=== PATIENT | female | born 1980 | race Caucasian/White ===

== ENCOUNTER 2019-05-27 17:21 | Emergency (ER) | payer OTHER, SELFPAY ==
[2019-05-27 17:29] VITALS: BP 118/73; PULSE 72; RESP 16; TEMP 36.9; O2SAT 98
--- NOTE | 2019-05-27 17:51 | ED.GENADULT ---
HPI - General Adult General Chief complaint: Urogenital-Female Stated complaint: UTI Time Seen by Provider: 05/27/19 17:51 Source: patient and RN notes reviewed Mode of arrival: ambulatory Limitations: no limitations History of Present Illness HPI narrative: 38-year-old female presents with urinary complaints for the past 2-3 days. Dysuria consist of burning and frequency.? No treatment.? Denies fever or chills. No significant pelvic pain. White vaginal discharge.? Vaginal itching and redness. Concern for STDs. Deirdre says she has unprotected sex with her significant other that she has been involved with since June 2018, she's not sure if he's have sex with others. Exacerbating factors urinating.? Denies hematuria or vaginal bleeding. Denies being , LMP 2009, hysterectomy.? No flank pain. Denies nausea, vomiting, and abdominal pain.? Tolerating liquids well.? Remains active. Some parts of this dictation were generated by voice recognition software and may contain typographical and/or grammatical inaccuracies. Related Data Home Medications Medication Instructions Recorded Confirmed acyclovir 200 mg PO Q4H 05/27/19 05/27/19 methadone 05/27/19 Allergies Allergy/AdvReac Type Severity Reaction Status Date / Time Sulfa (Sulfonamide Allergy Unknown RASH, Verified 01/09/19 18:22 Antibiotics) VOMITING Review of Systems Review of Systems: Narrative: CONSTITUTIONAL: Denies fever, chills, sweats. EYES: Denies visual changes, redness, discharge. ENT: Denies rhinorrhea, congestion, sore throat, otalgia. CARDIOVASCULAR: Denies chest pain, palpitations, edema. RESPIRATORY: Denies dyspnea, wheezing, cough. GASTROINTESTINAL: Denies abdominal pain, nausea, vomiting, diarrhea. GENITOURINARY: Complains of dysuria (burning and frequency), white vaginal discharge and itching. Denies hematuria. SKIN: Denies rash or itching. MUSCULOSKELETAL: Denies acute back pain, joint pain, or myalgia. NEUROLOGIC: Denies numbness or focal weakness. PSYCHIATRIC: Denies anxiety or depression. All systems reviewed & are unremarkable except as noted in HPI and below. [facility] Past Medical History Medical History (Updated 05/28/19 @ 00:00 by Background Daemon) Anxiety Depression Herpes simplex Neuropathy Substance abuse On methadone Surgical History Surgical History (Updated 05/27/19 @ 18:32 by SOMMER Rahman) History of hysterectomy Family History Family History (Updated 05/27/19 @ 18:32 by SOMMER Rahman) Other No significant family history Social History Social History (Updated 05/27/19 @ 18:34 by SOMMER Rahman) Smoking packs per day: 1 Smoking cigarettes per day: 20.0 Years smoked: 20 Smoking pack-years: 20.00 Smoking status: Current every day smoker Second hand tobacco smoke exposure: Yes Alcohol intake: never Substance use: former Substance use type: painkillers Other substance usage details: Deirdre denies using recreational drugs at this time Living arrangements: with family Occupation/Education: occupation Gender identity (if verbalized by the patient): Female Comments At time of signature, agree with nurse past medical, surgical, social, and family history.? There is no relevant family history pertinent to the presenting complaint. Exam Narrative: Exam Narrative: GENERAL: This is a well-nourished, well-developed patient, in no apparent distress.? Talks in full sentences and ambulates with steady gait without dyspnea. HEAD: normocephalic, atraumatic. EYES: PERRL. Sclera clear/white. Vision is grossly intact. CARDIOVASCULAR: Regular rate and rhythm without murmurs, gallops, or rubs. RESPIRATORY: Clear to auscultation. Breath sounds equal bilaterally. No wheezes, rales, or rhonchi.? GASTROINTESTINAL: Abdomen soft, no significant abdominal tenderness, nondistended. Bowel sounds are active. No hepato-splenomegaly, or palpable masses. No guarding. ZULMA
[2019-05-27] MEDS: cefTRIAXone 250 MG VIAL IM (18:12)
[2019-05-27] MEDS: LIDOCAINE HCL 1% LOCAL INJ 20 ML VIAL INFILTRATE (18:12)
== END 2019-05-27 18:23 | disposition home or self-care (01) ==
PROVIDERS: Emergency Provider Nurse Practitioner Family; PCP Family Medicine
DX: N76.0 Acute vaginitis (principal); F17.210 Nicotine dependence, cigarettes, uncomplicated; G62.9 Polyneuropathy, unspecified
CPT/HCPCS: 81003; 87086; 87088; 87491; 87591; 87661; 96372; 99214; G0463; J0696

== ENCOUNTER 2019-10-13 18:58 | Emergency (ER) | payer OTHER, SELFPAY ==
--- NOTE | ~2019-10-13 | XR_ITS ---
EXAMINATION: XR finger 5th LT min 2V DATE: 10/13/2019 19:21 INDICATION: Left hand fifth digit injury and pain. TECHNIQUE: 3 views of left hand fifth digit were obtained. COMPARISON: Left wrist radiographs 09/06/2015. FINDINGS: There is a nondisplaced comminuted fracture of base of fifth proximal phalanx. Joint spaces are normal. IMPRESSION: 1. Nondisplaced comminuted fracture of base of fifth proximal phalanx. Reviewed, dictated and finalized at location A.
[2019-10-13 19:14] VITALS: BP 101/64; PULSE 76; RESP 16; TEMP 36.5; O2SAT 97
--- NOTE | 2019-10-13 19:25 | ED.UPPEXIN ---
HPI - Extremity Injury (Upper) General Chief Complaint: Extremity Injury, Upper Stated Complaint: Hand injury Time Seen by Provider: 10/13/19 19:25 Source: patient and RN notes reviewed Mode of arrival: ambulatory Limitations: no limitations History of Present Illness HPI narrative: This is a 39 years old female presented to the office for an evaluation of left hand injury since last night. She was playing basketball and fell onto her left hand. She complains of left pinky pain, with bruising and swelling today. Denies any other injury/trauma. Related Data Allergies Allergy/AdvReac Type Severity Reaction Status Date / Time Sulfa (Sulfonamide Allergy Unknown RASH, Verified 01/09/19 18:22 Antibiotics) VOMITING Review of Systems Review of Systems: Narrative: CONSTITUTIONAL: Denies fever, chills, sweats. CARDIOVASCULAR: Denies chest pain RESPIRATORY: Denies dyspnea GASTROINTESTINAL: Denies abdominal pain, nausea, vomiting SKIN: Denies skin abrasion MUSCULOSKELETAL: Reports left hand and little finger pain. She is right hand dominated. NEUROLOGIC: Denies lightheaded/dizziness All other systems reviewed are negative, except as documented in HPI. [facility] Past Medical History Medical History Anxiety Depression Herpes simplex Neuropathy Substance abuse On methadone Surgical History Surgical History History of hysterectomy Hx of tonsillectomy Family History Family History Other No significant family history Social History Social History Smoking packs per day: 1 Smoking cigarettes per day: 20.0 Years smoked: 20 Smoking pack-years: 20.00 Smoking status: Current every day smoker Second hand tobacco smoke exposure: Yes Alcohol intake: never Substance use: former Substance use type: painkillers Other substance usage details: Deirdre denies using recreational drugs at this time Gender identity (if verbalized by the patient): Female Comments At time of signature, I agree with nursing past medical, surgical, social and family history. There is no relevant family history pertinent to the presenting complaint. Exam Narrative: Exam Narrative: GENERAL: This is a well-nourished, well-developed patient, patient appears under the influence, alcohol breath noted CARDIOVASCULAR: Regular rate and rhythm without murmurs, gallops, or rubs. RESPIRATORY: Clear to auscultation. Breath sounds equal bilaterally. No wheezes, rales, or rhonchi. GASTROINTESTINAL: Abdomen soft, non-tender, nondistended. Bowel sounds are active. No hepato-splenomegaly, or palpable masses. No guarding. SKIN: warm, intact with no suspicious lesions or rash, good texture and turgor. NEURO: awake, alert, and oriented to person, place and time. There were no obvious focal neurologic abnormalities. EXTREMITIES: There is no deformity of the left fifth finger. The patient is unable to extend or flex it well because of the pain. There is swelling and ecchymosis noted from mid metarcarpal to distal of fifth phalange. Cap refills brisk. Course Vital Signs Vital signs: Vital Signs Temperature 97.7 F 10/13/19 19:14 Pulse Rate 76 10/13/19 19:14 Respiratory Rate 16 10/13/19 19:14 Blood Pressure 101/64 10/13/19 19:14 Pulse Oximetry 97 10/13/19 19:14 Temperature 97.7 F 10/13/19 19:14 Pulse Rate 76 10/13/19 19:14 Respiratory Rate 16 10/13/19 19:14 Blood Pressure 101/64 10/13/19 19:14 Pulse Oximetry 97 10/13/19 19:14 MDM - Extremity Injury (Upper) MDM Narrative Medical decision making narrative: Discharge instructions reviewed with patient, as well as provided in writing per nursing staff. The instructions also include specific and strict return/GO TO THE ER as well as f/u information.
--- NOTE | 2019-10-13 19:53 | PC.NURSE ---
Left with sister. Patient not driving
== END 2019-10-13 19:53 | disposition home or self-care (01) ==
PROVIDERS: Emergency Provider Nurse Practitioner; PCP Family Medicine
DX: S62.647A Nondisplaced fracture of proximal phalanx of left little finger, initial encounter for closed fracture (principal); W19.XXXA Unspecified fall, initial encounter; Y93.67 Activity, basketball; F17.210 Nicotine dependence, cigarettes, uncomplicated
CPT/HCPCS: 29130; 73140; 99213; G0463

== ENCOUNTER 2019-10-21 09:19 | Emergency (ER) | payer OTHER, SELFPAY ==
--- NOTE | 2019-10-21 09:25 | ED.URI ---
HPI - URI/Sore Throat General Chief Complaint: Upper Respiratory Infection Stated Complaint: ear infection, sinus Time Seen by Provider: 10/21/19 09:26 Source: patient and RN notes reviewed Mode of arrival: ambulatory Limitations: no limitations History of Present Illness HPI Narrative: 39-year-old female presents with concern for bilateral ear pain, nasal congestion. Reports 2-day history of illness. Reports using antibiotic eardrops with no relief. MD elicited complaint: other (Ear pain) Related Data Home Medications Medication Instructions Recorded Confirmed acyclovir 10/21/19 methadone 10/21/19 Allergies Allergy/AdvReac Type Severity Reaction Status Date / Time Sulfa (Sulfonamide Allergy Unknown RASH, Verified 01/09/19 18:22 Antibiotics) VOMITING Review of Systems Review of Systems: Narrative: CONSTITUTIONAL: Denies malaise, chills, sweats, or fever. EYES: Denies visual changes, redness, or discharge. ENT: Reports rhinorrhea, congestion, bilateral otalgia. Denies sinus pain and sore throat. CARDIOVASCULAR: Denies chest pain, palpitations, or edema. RESPIRATORY: Denies cough or dyspnea. GASTROINTESTINAL: Denies abdominal pain, nausea, vomiting, diarrhea SKIN: Denies rash or itching. MUSCULOSKELETAL: Denies myalgia. NEUROLOGIC: Denies headache. All systems reviewed & are unremarkable except as noted in HPI and below PMFSH Social History Social History Smoking packs per day: 1 Smoking cigarettes per day: 20.0 Years smoked: 20 Smoking pack-years: 20.00 Smoking status: Current every day smoker Second hand tobacco smoke exposure: Yes Alcohol intake: never Substance use: former Substance use type: painkillers Other substance usage details: Deirdre denies using recreational drugs at this time Gender identity (if verbalized by the patient): Female Comments At time of signature, agree with nursing past medical, surgical, social and family history. There is no relevant family history pertinent to the presenting complaint Exam Narrative: Exam Narrative: GENERAL: Well-appearing, well-nourished, and in no acute distress. HEAD: Normocephalic EYES: PERRLA, conjunctivae clear ENT: Nares clear, turbinates edematous and erythematous, clear discharge. Mucous membranes moist. TM erythematous and bulging bilaterally; no tragal tenderness. Oropharynx erythematous without lesions. Tonsils not enlarged and without exudate, no drooling, no hoarseness, no trismus, uvula midline. NECK: Supple. No lymphadenopathy CHEST: Clear to auscultation, breath sounds equal. No wheezing, rhonchi, rales, or stridor. No respiratory distress, speaks in full sentences. HEART: Regular rate and rhythm. No murmur heard. SKIN: Warm, dry, no rash. NEURO: Alert and oriented x3. PSYCH: Normal mood and affect Course Course Emergency Course: Patient is aware of diagnosis, understands and agrees to treatment plan. Anticipatory guidance given. Patient agrees to follow-up as directed and is aware of reasons to seek care at the emergency department. Portions of this record may have been created with voice recognition software Vital Signs Vital signs: Vital Signs Temperature 97.8 F 10/21/19 09:30 Pulse Rate 76 10/21/19 09:30 Respiratory Rate 18 10/21/19 09:30 Blood Pressure 136/78 10/21/19 09:30 Pulse Oximetry 100 10/21/19 09:30 Temperature 97.8 F 10/21/19 09:30 Pulse Rate 76 10/21/19 09:30 Respiratory Rate 18 10/21/19 09:30 Blood Pressure 136/78 10/21/19 09:30 Pulse Oximetry 100 10/21/19 09:30 Reviewed. Patient has been instructed to follow up with her primary care provider within the next week regarding her elevated blood pressure today. MDM - URI/Sore Throat MDM Narrative Medical decision making narrative: Differential diagnosis considered: Strep pharyngitis, allergic rhinitis, upper respiratory tract infection, sinusitis, rhinosinus
[2019-10-21 09:30] VITALS: BP 136/78; PULSE 76; RESP 18; TEMP 36.6; O2SAT 100
== END 2019-10-21 09:44 | disposition home or self-care (01) ==
PROVIDERS: Emergency Provider Nurse Practitioner; PCP Family Medicine
DX: H66.003 Acute suppurative otitis media without spontaneous rupture of ear drum, bilateral (principal); F17.210 Nicotine dependence, cigarettes, uncomplicated
CPT/HCPCS: 99213; G0463

== ENCOUNTER 2019-12-07 19:14 | Emergency (ER) | payer OTHER, SELFPAY ==
[2019-12-07 19:23] VITALS: BP 135/88; PULSE 85; RESP 16; TEMP 37.4; O2SAT 100
--- NOTE | 2019-12-07 19:25 | PC.NURSE ---
in br to obtain ua spec.
--- NOTE | 2019-12-07 20:14 | ED.ABDPAIN ---
HPI - Abdominal Pain General Chief Complaint: Abdominal Pain Stated Complaint: abd pain Time Seen by Provider: 12/07/19 20:14 Source: patient and RN notes reviewed Mode of arrival: ambulatory Limitations: no limitations History of Present Illness HPI narrative: 39-year-old female who presents to [facility] care with complaints of lower abdominal pain starting this morning. Patient verbalizes some urinary frequency and slight burning with urination, denies any noted hematuria. Patient denies any vaginal drainage or new sexual partners, denies any known fevers, nausea vomiting or diarrhea. She states that she has some problems with constipation. MD elicited complaint: abdominal pain Pertinent past history: constipation and past UTI Onset (ago): day(s) Pain Consistency: intermittent Location: suprapubic Severity: moderate Pain scale (0-10): 7 Quality: aching Radiation: none Migration to: no migration Exacerbating factors: nothing Context: confirms history of similar episodes Associated symptoms: constipation Related Data Hx Last Menstrual Period: hysterectomy Patient : No Home Medications Medication Instructions Recorded Confirmed acyclovir 10/21/19 methadone 10/21/19 docusate sodium [DOK] PO 12/07/19 fluoxetine mg 12/07/19 lorazepam 12/07/19 terbinafine HCl TOPICAL 12/07/19 Allergies Allergy/AdvReac Type Severity Reaction Status Date / Time doxycycline Allergy Unknown Nausea Verified 10/23/19 13:03 Sulfa (Sulfonamide Allergy Unknown RASH, Verified 10/23/19 13:03 Antibiotics) VOMITING Review of Systems Review of Systems: Narrative: CONSTITUTIONAL: Denies fever, chills, or sweats. EYES: Denies visual changes, redness, or discharge. ENT: Denies rhinorrhea, congestion, sore throat, or otalgia. CARDIOVASCULAR: Denies chest pain, palpitations, or edema. RESPIRATORY: Denies cough or dyspnea. GASTROINTESTINAL: Lower abdominal discomfort, no nausea, vomiting, or diarrhea.constipation GENITOURINARY: positive dysuria denies hematuria. SKIN: Denies rash or itching. MUSCULOSKELETAL: Denies back pain, joint pain, or myalgia. NEUROLOGIC: Denies headache, numbness, or weakness. PSYCHIATRIC: Denies anxiety or depression. All systems reviewed & are unremarkable except as noted in HPI and below PMFSH Past Medical History Medical History (Updated 12/10/19 @ 08:45 by Deepali Zamudio NP) Anxiety Depression Herpes simplex Neuropathy Substance abuse On methadone Toenail fungus Surgical History Surgical History History of hysterectomy Hx of tonsillectomy Family History Family History Other No significant family history Social History Social History Smoking packs per day: 1 Smoking cigarettes per day: 20.0 Years smoked: 20 Smoking pack-years: 20.00 Smoking status: Current every day smoker Second hand tobacco smoke exposure: Yes Alcohol intake: never Substance use: former Substance use type: painkillers Other substance usage details: Deirdre denies using recreational drugs at this time Gender identity (if verbalized by the patient): Female Comments At time of signature, agree with nursing past medical, surgical, social and family history. There is no relevant family history pertinent to the presenting complaint Exam Narrative: Exam Narrative: GENERAL: Well-appearing, well-nourished, and in no acute distress. HEAD: Normocephalic, atraumatic. EYES: PERRLA and EOMI. ENT: Nares clear, no rhinorrhea or epistaxis. Mucous membranes moist. NECK: Supple. CHEST: Clear to auscultation. No respiratory distress.SAO2 100% on room air HEART: Regular rate and rhythm. No murmur heard. Normal peripheral pulses. ABDOMEN: Soft, nontender to palpation, nondistended, normal active bowel sounds. EXTREMITIES: Normal range of motion. N
== END 2019-12-07 20:34 | disposition left against medical advice (07) ==
PROVIDERS: Emergency Provider Registered Nurse; PCP Family Medicine
DX: R30.0 Dysuria (principal); F17.210 Nicotine dependence, cigarettes, uncomplicated; F41.9 Anxiety disorder, unspecified; F32.9 Major depressive disorder, single episode, unspecified
CPT/HCPCS: 81003; 99212; G0463

== ENCOUNTER 2020-01-08 11:14 | Outpatient (NON) | payer OTHER, SELFPAY ==
[2020-01-08 22:02] LABS: SARS-CoV-2 RNA PCR Negative
== END 2020-01-08 11:15 ==
PROVIDERS: Visit Provider Family Medicine
DX: Z20.828 Contact with and (suspected) exposure to other viral communicable diseases (principal); B34.9 Viral infection, unspecified
CPT/HCPCS: 87635; C9803; U0003

== ENCOUNTER 2020-01-12 19:15 | Emergency (ER) | payer OTHER, SELFPAY ==
--- NOTE | 2020-01-12 19:17 | ED.GENADULT ---
HPI - General Adult General Chief complaint: Nausea/Vomiting/Diarrhea Stated complaint: Throwing Up Time Seen by Provider: 01/12/20 19:17 Source: patient Mode of arrival: ambulatory Limitations: no limitations History of Present Illness HPI narrative: 39-year-old female patient presents to the [facility] with complaints of vomiting that started today. Patient states she has also had some body aches, sore throat and a stuffy runny nose for the past 2 days. Patient states that she did get tested for Covid about 2 days ago was negative. Patient states that she had had upper respiratory symptoms for about a day when she had gotten tested at that time. Patient states she has taken ibuprofen for her symptoms. Patient states she has been able to hold down some Sprite. Patient states that she just has some muscle pain to the abdomen but denies any diarrhea, severe abdominal pain. Denies any pain with urination. Related Data Home Medications Medication Instructions Recorded Confirmed methadone 10 mg PO DAILY 01/12/20 01/12/20 sertraline 50 mg PO DAILY 01/12/20 01/12/20 sumatriptan succinate 100 mg PO DIRECTED 01/12/20 01/12/20 Allergies Allergy/AdvReac Type Severity Reaction Status Date / Time doxycycline Allergy Rash Verified 01/12/20 19:37 Sulfa (Sulfonamide Allergy Rash Verified 01/12/20 19:28 Antibiotics) Review of Systems Review of Systems: Narrative: CONSTITUTIONAL: Denies fever, positive body aches and chills, denies sweats. EYES: Denies visual changes, redness, or discharge. ENT: Positive rhinorrhea, congestion, sore throat, denies otalgia. CARDIOVASCULAR: Denies chest pain, palpitations, or edema. RESPIRATORY: Denies cough or dyspnea. GASTROINTESTINAL: Denies abdominal pain, positive nausea, vomiting, denies diarrhea. GENITOURINARY: Denies dysuria or hematuria. SKIN: Denies rash or itching. MUSCULOSKELETAL: Denies back pain, joint pain, or myalgia. NEUROLOGIC: Denies headache, numbness, or weakness. PSYCHIATRIC: Denies anxiety or depression. [facility] Past Medical History Medical History (Updated 01/12/20 @ 19:56 by SOMMER Main) Frequent UTI Methadone dependence Opioid use Vicodin Surgical History Surgical History (Updated 01/12/20 @ 19:30 by SOMMER Main) H/O: hysterectomy Comments At the time of my signature I agree with nursing past medical history, surgical, social, and family history. There is no relevant family history pertinent to the presenting complaint. Exam Narrative: Exam Narrative: GENERAL: ill-appearing, well-nourished, and in no acute distress. Patient is slightly slurring her words during exam appears to be under the influence of something. HEAD: Normocephalic, atraumatic. EYES: PERRLA and EOMI. ENT: Nares with erythema and edema noted bilaterally, rhinorrhea, no active epistaxis. Mucous membranes moist. Posterior pharynx does appear dry, some erythema and 1+ tonsil enlargement. Bilateral TMs are clear no erythema or foreign bodies in the canal. NECK: Supple. No lymphadenopathy CHEST: Clear to auscultation. No respiratory distress. HEART: Regular rate and rhythm. No murmur heard. Normal peripheral pulses. ABDOMEN: Soft, flat, nondistended. No guarding, rebound tenderness, or rigid. No pulsatilla masses. Bowel sounds present in all four quadrants. No organomegaly. Negative Negro?s sign. No periumbicial tenderness. No Supra public tenderness or distension. Good femoral pulses bilaterally. No hernia noted. No scars or surface trauma. EXTREMITIES: Normal range of motion. No edema. SKIN: Warm, dry, no rash. NEURO: No focal deficits. Alert and oriented x3. Course Reevaluation(s) Reevaluation #1: Reevaluated patient. Notified her that her strep test today is negative. Discussed with patient that the fact that she is not having any abdominal pain is reassuring. Discussed with her I think that most likely the drainage to the back of the throat is possibly causing
[2020-01-12 19:29] VITALS: BP 107/77; PULSE 83; RESP 18; TEMP 36.7; O2SAT 99
== END 2020-01-12 19:59 | disposition home or self-care (01) ==
PROVIDERS: Emergency Provider Nurse Practitioner Family; PCP Family Medicine
DX: R11.10 Vomiting, unspecified (principal); Z20.828 Contact with and (suspected) exposure to other viral communicable diseases; J06.9 Acute upper respiratory infection, unspecified
CPT/HCPCS: 87081; 87880; 99203; G0463

== ENCOUNTER 2020-01-13 18:40 | Emergency (ER) | payer OTHER, SELFPAY ==
[2020-01-13 18:50] VITALS: BP 121/71; PULSE 85; RESP 17; TEMP 36.6; O2SAT 99
[2020-01-13 19:50] LABS: Basophils Percent Auto 0.5 % (0.2-1.2); Eosinophils Absolute Auto 0.3 K/mm3 (0-0.3); Eosinophils Percent Auto 3.7 % (0-4.4); Hematocrit 40.7 % (37.0-47.0); Hemoglobin 13.4 g/dL (12.0-15.0); Immature Granulocyte Absolute 0.03 K/mm3 (0.00-0.031); Immature Granulocyte Percent A 0.3 % (0-0.5); Lymphocytes Absolute Auto 4.37 K/mm3 (0.9-3.2); Lymphocytes Percent Auto 50.8 % (18.3-44.2); Mean Corpuscular HGB Conc 32.9 g/dl (32-36); Mean Corpuscular Hemoglobin 31.5 pg (26-34); Mean Corpuscular Volume 95.5 fl (80-100); Mean Platelet Volume 9.6 fl (7.4-10.4); Monocytes Absolute Auto 0.8 K/mm3 (0.1-0.6); Monocytes Percent Auto 9.3 % (2.6-8.5); Neutrophils Absolute Auto 3.1 K/mm3 (1.3-6.7); Neutrophils Percent Auto 35.4 % (45.5-73.1); Platelet Count Result 254 k/mm3 (150-375); Red Blood Count 4.26 M/mm3 (4.2-5.4); Red Cell Distribution Width 12.9 % (11.5-14.5); White Blood Count 8.6 K/mm3 (4.5-10.0)
[2020-01-13 20:02] LABS: Alanine Aminotransferase 32 U/L (4-35); Alkaline Phosphatase 116 U/L (38-126); Anion Gap 4 mmol/L (8-16); Aspartate Amino Transferase 35 U/L (14-36); Bilirubin,Total 0.2 mg/dL (0.2-1.3); Blood Urea Nitrogen 11 mg/dL (7-17); Calcium 8.8 mg/dL (8.4-10.2); Carbon Dioxide 31 mmol/L (22-30); Chloride 108 mmol/L (98-107); Estimated CRCL calculation 88 ml/min; Estimated Glomerular Filt Rate > 60; Glucose 82 mg/dL (65-105); Lipase 53 U/L (23-300); Potassium 4.1 mmol/L (3.4-5.0); Sodium 143 mmol/L (137-145)
[2020-01-13 20:03] LABS: Atypical Lymphocytes Present; Platelet Estimate Adequate (Adequate)
--- NOTE | 2020-01-13 20:11 | ED.NAVMDI ---
HPI - Nausea/Vomiting/Diarrhea General Chief complaint: Nausea/Vomiting/Diarrhea Stated complaint: n/v Time Seen by Provider: 01/13/20 19:30 History of Present Illness HPI Narrative: Patient is a 39-year-old female who presents ER with not feeling well over the last week. She reports she has body aches with subjective fevers and chills. She has had persistent nausea and vomiting that is without diarrhea. No known sick contacts, no alleviating factors. Reports she went to urgent care yesterday to be evaluated and was told to come here but instead she went home to go to sleep. Related Data Home Medications Medication Instructions Recorded Confirmed methadone 64 mg PO DAILY 01/12/20 01/12/20 sertraline 50 mg PO DAILY 01/12/20 01/12/20 Allergies Allergy/AdvReac Type Severity Reaction Status Date / Time doxycycline Allergy Rash Verified 01/13/20 18:55 Sulfa (Sulfonamide Allergy Rash Verified 01/13/20 18:55 Antibiotics) Review of Systems Review of Systems: All systems reviewed & are unremarkable except as noted in HPI and below Constitutional: Constitutional: Reports chills, Reports fever(s) and Reports weakness ENT: Denies nasal congestion and Denies sore throat Cardiovascular: Cardiovascular: Denies chest pain and Denies radiating jaw, neck or arm pain Respiratory: Respiratory: Denies cough and Denies dyspnea Gastrointestinal: Gastrointestinal: Reports abdominal pain, Denies diarrhea, Reports nausea and Reports vomiting Genitourinary: Genitourinary: Denies nocturia and Denies dysuria Musculoskeletal: Musculoskeletal: Reports back pain and Reports myalgias PMFSH Past Medical History Medical History (Updated 01/13/20 @ 21:39 by Nahun Dye MD) Frequent UTI Methadone dependence Opioid use Vicodin Surgical History Surgical History (Updated 01/12/20 @ 19:30 by SOMMER Main) H/O: hysterectomy Social History Social History Gender identity (if verbalized by the patient): Female Exam Narrative: Exam Narrative: GENERAL: Well-appearing, well-nourished, and in no acute distress. HEAD: Normocephalic, atraumatic. ENT: Mucous membranes moist. No pharyngeal erythema or tonsillar exam. CHEST: Clear to auscultation. No respiratory distress. HEART: Regular rate and rhythm. Normal peripheral pulses. ABDOMEN: Soft, nontender, nondistended. EXTREMITIES: Normal range of motion. No edema. SKIN: Warm, dry, no rash. NEURO: Alert and oriented x3. Course Course Emergency Course: Symptoms improved with Toradol and Zofran. Patient reports she is ready to be discharged home. Vital Signs Vital signs: Vital Signs Temperature 97.8 F 01/13/20 18:50 Pulse Rate 85 01/13/20 18:50 Respiratory Rate 17 01/13/20 18:50 Blood Pressure 121/71 01/13/20 18:50 Pulse Oximetry 99 01/13/20 18:50 Temperature 97.8 F 01/13/20 18:50 Pulse Rate 68 01/13/20 20:44 Respiratory Rate 17 01/13/20 18:50 Blood Pressure 124/72 01/13/20 20:44 Pulse Oximetry 99 01/13/20 18:50 MDM - Nausea/Vomiting/Diarrhea Lab Data Result diagrams: 01/13/20 19:45 01/13/20 19:45 Labs: Lab Results 01/13/20 01/13/20 01/13/20 Range/Units 19:45 19:45 20:07 WBC 8.6 (4.5-10.0) K/mm3 RBC 4.26 (4.2-5.4) M/mm3 Hgb 13.4 (12.0-15.0) g/dL Hct 40.7 (37.0-47.0) % MCV 95.5 (80-100) fl MCH 31.5 (26-34) pg MCHC 32.9 (32-36) g/dl RDW 12.9 (11.5-14.5) % Plt Count 254 (150-375) k/mm3 MPV 9.6 (7.4-10.4) fl Immature Gran % (Auto) 0.3 (0-0.5) % Neut % (Auto) 35.4 L (45.5-73.1) % Lymph % (Auto) 50.8 H (18.3-44.2) % Talbot % (Auto) 9.3 H (2.6-8.5) % Eos % (Auto) 3.7 (0-4.4) % Baso % (Auto) 0.5 (0.2-1.2) % Lymph # (Auto) 4.37 H (0.9-3.2) K/mm3 Talbot # (Auto) 0.8 H (0.1-0.6) K/mm3 Eos # (Auto) 0.3 (0-0.3) K/mm3 Baso # (Auto) 0.0 (0.
[2020-01-13] MEDS: SODIUM CHLORIDE 0.9% IV 1,000 ML 999 ML IV CONT (20:17)
[2020-01-13] MEDS: KETOROLAC 30 MG/ML VIAL (*BKC) IV PUSH (20:18)
[2020-01-13] MEDS: ONDANSETRON INJ 4 MG/2 ML VIAL IV PUSH (20:18)
[2020-01-13 20:29] LABS: Add Urine Microscopic? YES; Appearance Urine Cloudy (Clear); Bacteria Urine Trace /hpf; Bilirubin Urine Negative (Negative); Blood Urine Negative (Negative); Calcium Oxalate Crystals Urine Present /hpf; Color Urine Yellow (Yellow); Glucose Urine UA Negative (Negative); Ketones Urine Negative (Negative); Leukocyte Esterase Ur Negative LEU/UL (Negative); Mucus Urine Rare /lpf; Nitrate Urine Negative (Negative); Protein Urine Negative (Negative); RBC Urine 0-2 /hpf (0-2); Specific Grav Ur 1.017 (1.001-1.035); Squamous Epithelial Cell Urine Many /hpf (Few); Urobilinogen Urine Negative mg/dL (<2.0); WBC Urine 0-3 /hpf
[2020-01-13 20:42] VITALS: BP 126/83; PULSE 71
[2020-01-13 20:44] VITALS: BP 124/72; PULSE 68
== END 2020-01-13 21:48 | disposition home or self-care (01) ==
PROVIDERS: Emergency Provider Emergency Medicine; PCP Family Medicine
DX: M54.9 Dorsalgia, unspecified (principal); R11.0 Nausea; Z87.440 Personal history of urinary (tract) infections
CPT/HCPCS: 36415; 80053; 81001; 81025; 83690; 85025; 87804; 96361; 96374; 96375; 99284; J1885; J2405; J7030

== ENCOUNTER 2020-02-20 17:09 | Emergency (ER) | payer OTHER, SELFPAY ==
[2020-02-20 17:17] VITALS: BP 136/101; PULSE 98; RESP 18; TEMP 35.8; O2SAT 100
--- NOTE | 2020-02-20 17:26 | ED.EAR ---
HPI - Ear Problem General Chief complaint: Ear Stated complaint: left ear injury/pain Time Seen by Provider: 02/20/20 17:19 Source: patient Mode of arrival: ambulatory Limitations: no limitations History of Present Illness HPI Narrative: This patent is a 39 year old female who presents for evaluation of left ear ringing for 2 weeks. She has continued to feel like she is hearing noise in her left ear so she bought some over the counter ear drops. She used those ear drops today and then suctions out the liquid. Prior to arrival she was using a Q tip to clean out ear and she noticed blood on her tip. She denies ear pain, vomiting or fever. She does reports an episode of vertigo and sinus congestion. Related Data Allergies Allergy/AdvReac Type Severity Reaction Status Date / Time doxycycline Allergy Rash Unverified 02/20/20 17:24 Sulfa (Sulfonamide Allergy Rash Unverified 02/20/20 17:24 Antibiotics) Review of Systems Review of Systems: All systems reviewed & are unremarkable except as noted in HPI and below Constitutional: Constitutional: Denies chills and Denies fever(s) ENT: Reports vertigo, Reports dizziness, Reports nasal congestion and Denies sore throat Cardiovascular: Cardiovascular: Denies chest pain Neurologic: Reports headache(s) (intermittent) PMFSH Past Medical History Medical History Frequent UTI Methadone dependence Opioid use Vicodin Surgical History Surgical History H/O: hysterectomy Social History Social History (Updated 02/20/20 @ 17:31 by Tanya Lin MD) Smoking status: Current every day smoker Exam Const: General: no acute distress and alert Orientation/consciousness: patient oriented x3 HENMT: Head: atraumatic Ears: external ears normal and TM abnormal with fluid behind the TM bilateral and other (no erythema); not perforated Face and sinus: sinuses nontender Mouth: Yes lip normal Other: small amount of blood on left auditory canal but no active bleeding. No tragal tenderness Eyes: Pupils: Equal, round and reactive pupils present EOM: EOMs intact bilaterally Neck: Neck: normal visual inspection Resp: Effort & Inspection: normal respiratory effort and no retractions Cardio: Heart sounds: Murmur heart sound present Skin: General skin exam: normal color Rashes: no rashes Neuro: General: patient oriented x3 and moves all extremities Extrem: General: normal to inspection Course Reevaluation(s) Reevaluation #1: I discussed case with patient . She does not have any sign of External otitis or otitis media. She will take yaron D and nasal spray and follow up with PCP Date: 02/20/20 Time: 17:33 Vital Signs Vital signs: Vital Signs Temperature 96.5 F L 02/20/20 17:17 Pulse Rate 98 02/20/20 17:17 Respiratory Rate 18 02/20/20 17:17 Blood Pressure 136/101 H 02/20/20 17:17 Pulse Oximetry 100 02/20/20 17:17 Temperature 96.5 F L 02/20/20 17:17 Pulse Rate 98 02/20/20 17:17 Respiratory Rate 18 02/20/20 17:17 Blood Pressure 136/101 H 02/20/20 17:17 Pulse Oximetry 100 02/20/20 17:17 Medical Decision Making Vital Signs Vital Signs: Vital Signs Temperature 96.5 F L 02/20/20 17:17 Pulse Rate 98 02/20/20 17:17 Respiratory Rate 18 02/20/20 17:17 Blood Pressure 136/101 H 02/20/20 17:17 Pulse Oximetry 100 02/20/20 17:17 Temperature 96.5 F L 02/20/20 17:17 Pulse Rate 98 02/20/20 17:17 Respiratory Rate 18 02/20/20 17:17 Blood Pressure 136/101 H 02/20/20 17:17 Pulse Oximetry 100 02/20/20 17:17 Discharge Plan Discharge Clinical Impression: Left-sided tinnitus, Acute middle ear effusion Patient Disposition: Home, Self-Care Condition: Stable Instructions: Antibiotic Form, Tinnitus (ED) Prescriptions: New meclizine 25 mg tablet 25 mg PO TID PRN (Reason:
== END 2020-02-20 17:58 | disposition home or self-care (01) ==
LOC: ANHED 17:43
PROVIDERS: Emergency Provider General Practice; PCP Family Medicine
DX: H93.12 Tinnitus, left ear (principal); H93.8X2 Other specified disorders of left ear; Z87.440 Personal history of urinary (tract) infections; F17.200 Nicotine dependence, unspecified, uncomplicated
CPT/HCPCS: 99283

== ENCOUNTER 2020-03-07 11:20 | Emergency (ER) | payer OTHER, SELFPAY ==
[2020-03-07 11:41] VITALS: BP 111/78; PULSE 81; RESP 17; TEMP 36.3; O2SAT 97
[2020-03-07 11:56] LABS: Basophils Absolute Auto 0.1 K/mm3 (0.0-0.1); Basophils Percent Auto 0.5 % (0.2-1.2); Eosinophils Absolute Auto 0.4 K/mm3 (0-0.3); Eosinophils Percent Auto 2.8 % (0-4.4); Hematocrit 41.1 % (37.0-47.0); Hemoglobin 14.2 g/dL (12.0-15.0); Immature Granulocyte Absolute 0.04 K/mm3 (0.00-0.031); Immature Granulocyte Percent A 0.3 % (0-0.5); Lymphocytes Absolute Auto 7.15 K/mm3 (0.9-3.2); Lymphocytes Percent Auto 49.2 % (18.3-44.2); Mean Corpuscular HGB Conc 34.5 g/dl (32-36); Mean Corpuscular Hemoglobin 31.7 pg (26-34); Mean Corpuscular Volume 91.7 fl (80-100); Mean Platelet Volume 9.5 fl (7.4-10.4); Monocytes Absolute Auto 1.3 K/mm3 (0.1-0.6); Monocytes Percent Auto 8.7 % (2.6-8.5); Neutrophils Absolute Auto 5.6 K/mm3 (1.3-6.7); Neutrophils Percent Auto 38.5 % (45.5-73.1); Nucleated Red Blood Cells Perc 0.1 % (0.0-0.2); Platelet Count Result 361 k/mm3 (150-375); Red Blood Count 4.48 M/mm3 (4.2-5.4); Red Cell Distribution Width 12.6 % (11.5-14.5); White Blood Count 14.5 K/mm3 (4.5-10.0)
[2020-03-07 12:08] LABS: Alanine Aminotransferase 19 U/L (4-35); Albumin Level 4.3 g/dL (3.5-5.1); Alkaline Phosphatase 130 U/L (38-126); Anion Gap 6 mmol/L (8-16); Aspartate Amino Transferase 25 U/L (14-36); Bilirubin,Total 0.6 mg/dL (0.2-1.3); Blood Urea Nitrogen 13 mg/dL (7-17); Calcium 9.6 mg/dL (8.4-10.2); Carbon Dioxide 30 mmol/L (22-30); Chloride 104 mmol/L (98-107); Estimated CRCL calculation 76 ml/min; Estimated Glomerular Filt Rate > 60; Glucose 78 mg/dL (65-105); Potassium 4.2 mmol/L (3.4-5.0); Sodium 140 mmol/L (137-145)
[2020-03-07 12:18] LABS: Ethanol < 10 mg/dL (<10)
[2020-03-07 14:19] LABS: Add Urine Microscopic? YES; Appearance Urine Clear (Clear); Bacteria Urine Trace /hpf; Bilirubin Urine Negative (Negative); Blood Urine Negative (Negative); Color Urine Yellow (Yellow); Glucose Urine UA Negative (Negative); Ketones Urine Negative (Negative); Leukocyte Esterase Ur Trace LEU/UL (Negative); Mucus Urine Rare /lpf; Nitrate Urine Negative (Negative); Protein Urine Negative (Negative); RBC Urine 0-2 /hpf (0-2); Specific Grav Ur 1.014 (1.001-1.035); Squamous Epithelial Cell Urine Rare /hpf (Few); Urobilinogen Urine Negative mg/dL (<2.0); WBC Urine 0-3 /hpf
[2020-03-07 14:31] LABS: Barbiturate Screen Urine Negative (Negative); Benzodiazepines Screen Urine Positive (Negative)
[2020-03-07 14:42] LABS: Cannabinoid Screen Urine Negative (Negative); Cocaine Screen Urine Negative (Negative); Methadone Screen Urine Positive (Negative); Opiate Screen Urine Negative (Negative); Phencyclidine Screen Urine Negative (Negative)
[2020-03-07 15:13] LABS: Amphetamine Screen Urine Positive (Negative)
--- NOTE | 2020-03-07 16:06 | ED.GENADULT ---
HPI - General Adult General Chief complaint: Psychiatric Symptoms Stated complaint: PSYCH EVAL Time Seen by Provider: 03/07/20 12:13 Source: patient History of Present Illness HPI narrative: 39 years old white female brought to the emergency room by ambulance because she was found sleeping at the side of the road. When I went see the patient was sleeping and snoring. Later patient is awake, alert and oriented x4, telling me that she finished her shift at [employer] last night and does not know what happened. She denies using any drugs. Currently denying any complaint, suicide or homicide ideation or even depression. Patient does not know why she was sleeping Related Data Home Medications Medication Instructions Recorded Confirmed methadone 64 mg PO DAILY 01/12/20 01/12/20 Allergies Allergy/AdvReac Type Severity Reaction Status Date / Time doxycycline Allergy Unknown Nausea Verified 03/07/20 11:37 Sulfa (Sulfonamide Allergy Unknown RASH, Verified 03/07/20 11:37 Antibiotics) VOMITING Review of Systems Review of Systems: Narrative: CONSTITUTIONAL: Denies fever, chills, or sweats. EYES: Denies visual changes, redness, or discharge. ENT: Denies rhinorrhea, congestion, sore throat, or otalgia. CARDIOVASCULAR: Denies chest pain, palpitations, or edema. RESPIRATORY: Denies cough or dyspnea. GASTROINTESTINAL: Denies abdominal pain, nausea, vomiting, or diarrhea. GENITOURINARY: Denies dysuria or hematuria. SKIN: Denies rash or itching. MUSCULOSKELETAL: Denies back pain, joint pain, or myalgia. NEUROLOGIC: Denies headache, numbness, or weakness. PSYCHIATRIC: Denies anxiety or depression. [facility] Past Medical History Medical History Anxiety Depression Frequent UTI Frequent UTI Herpes simplex Methadone dependence Methadone dependence Neuropathy Opioid use Vicodin Opioid use Vicodin Substance abuse On methadone Toenail fungus Surgical History Surgical History H/O: hysterectomy H/O: hysterectomy History of hysterectomy Hx of tonsillectomy Family History Family History Other No significant family history Social History Social History Smoking packs per day: 1 Smoking cigarettes per day: 20.0 Years smoked: 20 Smoking pack-years: 20.00 Smoking status: Current every day smoker Second hand tobacco smoke exposure: Yes Alcohol intake: never Substance use: former Substance use type: painkillers Other substance usage details: Deirdre denies using recreational drugs at this time Gender identity (if verbalized by the patient): Female Exam Narrative: Exam Narrative: General appearance: Well-developed, well-nourished Skin: Normal color Head: Normocephalic, nontraumatic Eyes: Clear conjunctiva ENT: Oropharynx normal, ears normal, nose normal Neck: Supple, nontender Chest and respiratory: Airway patent, no respiratory distress, no accessory muscle use Heart: Regular rate/rhythm Abdomen: Soft, nontender, no organomegaly, quiet bowel sounds Vascular: Normal peripheral pulses, normal capillary refill. 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
[2020-03-07 16:34] VITALS: BP 110/75; PULSE 80; RESP 18; O2SAT 98
== END 2020-03-07 16:36 | disposition home or self-care (01) ==
PROVIDERS: Physician Assistant; Emergency Provider Emergency Medicine; PCP Family Medicine
DX: F15.10 Other stimulant abuse, uncomplicated (principal); F17.210 Nicotine dependence, cigarettes, uncomplicated
CPT/HCPCS: 36415; 80053; 80307; 81001; 81025; 84443; 85025; 99283

== ENCOUNTER 2020-06-15 09:28 | Emergency (ER) | payer OTHER, SELFPAY ==
--- NOTE | 2020-06-15 09:54 | ED.URI ---
HPI - URI/Sore Throat General Chief Complaint: Upper Respiratory Infection Stated Complaint: Sinus Infection,Sore Throat Time Seen by Provider: 06/15/20 09:54 Source: patient and RN notes reviewed Mode of arrival: ambulatory Limitations: no limitations History of Present Illness HPI Narrative: 40-year-old female presents to the [facility] with complaints of cough, congestion and sore throat x 3 days. Also reports headache. Bilateral ear pain and pressure. Tried taking Claritin x1 with no relief. States that Theresa-D and Flonase worked the best for her needed prescriptions. Has a history of chronic allergies. Related Data Home Medications Medication Instructions Recorded Confirmed methadone 50 mg PO DAILY 01/12/20 06/15/20 acyclovir 400 mg PO DAILY 06/15/20 06/15/20 ondansetron HCl 8 mg PO DAILY 06/15/20 06/15/20 Allergies Allergy/AdvReac Type Severity Reaction Status Date / Time doxycycline Allergy Unknown Nausea Verified 06/13/20 11:34 Sulfa (Sulfonamide Allergy Unknown RASH, Verified 06/13/20 11:34 Antibiotics) VOMITING Review of Systems Review of Systems: Narrative: CONSTITUTIONAL: Denies fever, chills, or sweats. EYES: Denies visual changes, redness, or discharge. ENT: Reports rhinorrhea, congestion, sore throat, or otalgia. CARDIOVASCULAR: Denies chest pain, palpitations, or edema. RESPIRATORY: Denies cough or dyspnea. GASTROINTESTINAL: Denies abdominal pain, nausea, vomiting, or diarrhea. MUSCULOSKELETAL: Denies back pain, joint pain, or myalgia. NEUROLOGIC: Denies headache, numbness, or weakness. PSYCHIATRIC: Denies anxiety or depression. All other systems reviewed are negative, except as documented in HPI. [facility] Past Medical History Medical History Anxiety Depression Frequent UTI Frequent UTI Frequent UTI Herpes simplex 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 Neuropathy Opioid use Vicodin Opioid use Vicodin Opioid use Vicodin Substance abuse On methadone Toenail fungus Surgical History Surgical History H/O: hysterectomy H/O: hysterectomy H/O: hysterectomy History of hysterectomy Hx of tonsillectomy Family History Family History Other No significant family history Social History Social History Smoking packs per day: 1 Smoking cigarettes per day: 20.0 Years smoked: 20 Smoking pack-years: 20.00 Smoking status: Current every day smoker Second hand tobacco smoke exposure: Yes Alcohol intake: never Substance use: former Substance use type: painkillers Other substance usage details: Deirdre denies using recreational drugs at this time Gender identity (if verbalized by the patient): Female Comments At the time of my signature, I reviewed and agree with the nursing past medical, surgical, social, and family history. There is no relevant family history pertinent to the patient complaint. Exam Narrative: Exam Narrative: GENERAL: This is a well-nourished, well-developed patient, in no apparent distress. HEAD: normocephalic, atraumatic. EYES: PERRL. Sclera clear/white. Vision is grossly intact. EARS: External ears normal, auditory canals clear and without drainage, TMs bilateral up with clear fluid and bulging without perforation. Hearing grossly intact. NOSE: External nose normal with clear nasal discharge, nares with redness and inflammation. THROAT: Mucous membranes moist, posterior pharynx clear. NECK: Neck supple, non-tender without lymphadenopathy, masses or thyromegaly. CARDIOVASCULAR: Regular rate and rhythm without murmurs, gallops, or rubs. RESPIRATORY: Clear to auscultation. Breath sounds equal bilaterally. No wheezes, rales, or rhonchi. NEURO: awake, alert, and oriented to person, place and time. There were no obvious focal neurologic a
[2020-06-15 09:58] VITALS: BP 118/75; PULSE 70; RESP 16; TEMP 37.2; O2SAT 98
== END 2020-06-15 10:12 | disposition home or self-care (01) ==
PROVIDERS: Emergency Provider Nurse Practitioner; PCP Family Medicine
DX: J01.10 Acute frontal sinusitis, unspecified (principal); T78.40XA Allergy, unspecified, initial encounter; F17.210 Nicotine dependence, cigarettes, uncomplicated
CPT/HCPCS: 99213; G0463

== ENCOUNTER 2020-07-10 06:49 | Outpatient (CLI) | payer OTHER, SELFPAY ==
--- NOTE | ~2020-07-10 | US_ITS ---
EXAMINATION: US abdomen limited EXAM DATE: 07/10/2020 07:36 INDICATION: Right upper quadrant abdominal pain. TECHNIQUE: Multiple grayscale and Doppler images of the abdomen right upper quadrant were obtained (b y a technologist who performed the scan) and subsequently reviewed. Comparison is made to prior exami nation from 03/26/2018. FINDINGS: The pancreatic head and body are normal in appearance. The pancreatic tail is not visualized. Mildl y echogenic liver parenchyma, hepatic steatosis. There are no focal liver lesions identified. Ther e is no evidence of intrahepatic biliary duct dilation. Portal venous flow was seen in the hepatoped al, normal direction and has normal Doppler waveform. No right-sided hydronephrosis. Common bile duct measures 6 mm, which is normal. The gallbladder wall is normal in thickness, with ex pected amount of distention. No sonographic evidence of pericholecystic fluid. There is no cholelit hiases. Technologist performing exam reports patient did not demonstrate sonographic Negro's sign. Please note that this sign is less reliable in patients who have received pain medication. IMPRESSION: 1. Hepatic steatosis. 2. Unremarkable gallbladder. Reviewed, dictated and finalized at location A.
== END 2020-07-10 06:50 | disposition home or self-care (01) ==
PROVIDERS: PCP Family Medicine; Visit Provider Family Medicine
DX: R10.11 Right upper quadrant pain (principal); K76.0 Fatty (change of) liver, not elsewhere classified
CPT/HCPCS: 76705

== ENCOUNTER 2020-08-02 13:00 | Emergency (ER) | payer OTHER, SELFPAY ==
[2020-08-02 13:08] VITALS: BP 130/86; PULSE 83; RESP 16; TEMP 36.6; O2SAT 98
[2020-08-02 13:31] VITALS: BP 130/86; PULSE 83; RESP 16; TEMP 36.6; O2SAT 98
--- NOTE | 2020-08-02 14:34 | ED.BACK ---
HPI - Back Pain/Injury General Chief Complaint: Back Pain/Injury Stated Complaint: back pain Time Seen by Provider: 08/02/20 13:16 Source: patient and RN notes reviewed Mode of arrival: ambulatory Limitations: no limitations History of Present Illness HPI Narrative: Patient presents today complaining of right-sided low back pain. Denies injury. States pain is constant and increases with movement. Associated symptoms include nausea. Denies radiation of the pain. Denies numbness or tingling in the legs, feet, genitals. Denies any loss of bowel or bladder control. States she was looking in the refrigerator when she felt a twinge in her back. So far, she has used Tylenol, ibuprofen, topical patches, tea tree oil, and other [id number] treatments, which have not done much for her pain. Currently rates her pain 11/04. Patient also uses methadone that she receives daily. MD elicited complaint: back pain Related Data Home Medications Medication Instructions Recorded Confirmed methadone 50 mg PO DAILY 01/12/20 06/15/20 acyclovir 400 mg PO DAILY 06/15/20 06/15/20 ondansetron HCl 8 mg PO DAILY 06/15/20 06/15/20 Allergies Allergy/AdvReac Type Severity Reaction Status Date / Time doxycycline Allergy Unknown Nausea Verified 08/02/20 13:02 Sulfa (Sulfonamide Allergy Unknown RASH, Verified 08/02/20 13:02 Antibiotics) VOMITING Review of Systems Review of Systems: Narrative: CONSTITUTIONAL: Denies body aches, fever, chills, or sweats. EYES: Denies visual changes, redness, or discharge. ENT: Denies rhinorrhea, congestion, sore throat, or otalgia. CARDIOVASCULAR: Denies chest pain, palpitations, or edema. RESPIRATORY: Denies cough or dyspnea. GASTROINTESTINAL: Denies abdominal pain, nausea, vomiting, or diarrhea. GENITOURINARY: Denies dysuria or hematuria. SKIN: Denies rash, itching, or wounds. MUSCULOSKELETAL: Denies joint pain, or myalgia. + Back pain NEUROLOGIC: Denies headache, numbness, tingling, or weakness. PSYCH: Denies depression or anxiety. [facility] Past Medical History Medical History (Updated 08/02/20 @ 14:39 by Kavita Gill, [employer], ) Anxiety Depression Frequent UTI Herpes simplex 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 Neuropathy Opioid use Vicodin Opioid use Vicodin Opioid use Vicodin Substance abuse On methadone Toenail fungus Surgical History Surgical History (Updated 08/02/20 @ 14:39 by Kavita Gill, [facility], ) H/O: hysterectomy Hx of tonsillectomy Family History Family History Other No significant family history Social History Social History Smoking packs per day: 1 Smoking cigarettes per day: 20.0 Years smoked: 20 Smoking pack-years: 20.00 Smoking status: Current every day smoker Second hand tobacco smoke exposure: Yes Alcohol intake: never Substance use: former Substance use type: painkillers Other substance usage details: Deirdre denies using recreational drugs at this time Gender identity (if verbalized by the patient): Female Exam Narrative: Exam Narrative: GENERAL: Well-appearing, well-nourished, and in moderate pain distress. HEAD: Normocephalic, atraumatic. EYES: EOMI. No redness or drainage. Conjunctivae normal. ENT: Mucous membranes pink and moist. NECK: Normal AROM. Supple. No lymphadenopathy. CHEST: No respiratory distress. MUSCULOSKELETAL: No bony tenderness of the thoracic or lumbar spine. Right lower lumbar paraspinal muscle tenderness with palpable muscle spasm. No tenderness of either SI joint. Distal sensation intact. Saddle sensation intact. Capillary refill normal. Posterior tibial pulses normal. Foot push and pulls equal and strong. EXTREMITIES: Normal range of motion. No edema. SKIN: Warm, dry, no rash. Capillary refill normal. Normal skin turgor. NEURO: No focal deficits. Alert and orient
== END 2020-08-02 13:26 | disposition home or self-care (01) ==
PROVIDERS: Emergency Provider Nurse Practitioner; PCP Family Medicine
DX: M62.830 Muscle spasm of back (principal); F17.210 Nicotine dependence, cigarettes, uncomplicated; G62.9 Polyneuropathy, unspecified
CPT/HCPCS: 99213; G0463

== ENCOUNTER 2020-08-20 19:30 | Emergency (ER) | payer OTHER, SELFPAY ==
[2020-08-20 19:38] VITALS: BP 116/77; PULSE 72; RESP 16; TEMP 36; O2SAT 100
--- NOTE | 2020-08-20 19:41 | ED.GENADULT ---
HPI - General Adult General Chief complaint: Skin/Abscess/Foreign Body Stated complaint: rash Source: patient Mode of arrival: ambulatory Limitations: no limitations History of Present Illness HPI narrative: 40 y/o female. PMH includes: None pertinent. Presents to Related Data Home Medications Medication Instructions Recorded Confirmed methadone 50 mg PO DAILY 01/12/20 06/15/20 acyclovir 400 mg PO DAILY 06/15/20 06/15/20 ondansetron HCl 8 mg PO DAILY 06/15/20 06/15/20 Allergies Allergy/AdvReac Type Severity Reaction Status Date / Time doxycycline Allergy Unknown Nausea Verified 08/02/20 13:02 Sulfa (Sulfonamide Allergy Unknown RASH, Verified 08/02/20 13:02 Antibiotics) VOMITING PMFSH Past Medical History Medical History (Updated 08/03/20 @ 00:01 by Shelby Mcmullen) Anxiety Depression Frequent UTI Herpes simplex 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 Neuropathy Opioid use Vicodin Opioid use Vicodin Opioid use Vicodin Substance abuse On methadone Toenail fungus Surgical History Surgical History (Updated 08/02/20 @ 14:39 by Kavita Gill, [facility], ) H/O: hysterectomy Hx of tonsillectomy Family History Family History Other No significant family history Social History Social History Smoking packs per day: 1 Smoking cigarettes per day: 20.0 Years smoked: 20 Smoking pack-years: 20.00 Smoking status: Current every day smoker Second hand tobacco smoke exposure: Yes Alcohol intake: never Substance use: former Substance use type: painkillers Other substance usage details: Deirdre denies using recreational drugs at this time Gender identity (if verbalized by the patient): Female Course Vital Signs Vital signs: Vital Signs Temperature 36.0 C L 08/20/20 19:38 Pulse Rate 72 08/20/20 19:38 Respiratory Rate 16 08/20/20 19:38 Blood Pressure 116/77 08/20/20 19:38 Pulse Oximetry 100 08/20/20 19:38 Temperature 36.0 C L 08/20/20 19:38 Pulse Rate 72 08/20/20 19:38 Respiratory Rate 16 08/20/20 19:38 Blood Pressure 116/77 08/20/20 19:38 Pulse Oximetry 100 08/20/20 19:38 Medical Decision Making Vital Signs Vital Signs: Vital Signs Temperature 36.0 C L 08/20/20 19:38 Pulse Rate 72 08/20/20 19:38 Respiratory Rate 16 08/20/20 19:38 Blood Pressure 116/77 08/20/20 19:38 Pulse Oximetry 100 08/20/20 19:38 Temperature 36.0 C L 08/20/20 19:38 Pulse Rate 72 08/20/20 19:38 Respiratory Rate 16 08/20/20 19:38 Blood Pressure 116/77 08/20/20 19:38 Pulse Oximetry 100 08/20/20 19:38 Discharge Plan Discharge Prescriptions: No Action methadone 10 mg Tablet 50 mg PO DAILY RF: 0 ondansetron HCl 8 mg tablet 8 mg PO DAILY RF: 0 acyclovir 400 mg tablet 400 mg PO DAILY RF: 0 fluticasone propionate [Flonase Allergy Relief] 50 mcg/actuation spray,suspension 1 spray intranasal BID Qty: 16 RF: 0 fexofenadine-pseudoephedrine 60-120 mg tablet extended release 12 hr 1 tablet PO Q12H PRN (Reason: nasal congestion) Qty: 30 RF: 0 cyclobenzaprine 10 mg tablet 10 mg PO TID PRN (Reason: muscle spasm) Qty: 20 RF: 0 ondansetron 4 mg tablet,disintegrating 4 mg PO Q6H PRN (Reason: nausea and vomiting) Qty: 10 RF: 0
--- NOTE | 2020-08-20 19:50 | ED.GENADULT ---
HPI - General Adult General Chief complaint: Skin/Abscess/Foreign Body Stated complaint: rash Source: patient Mode of arrival: ambulatory Limitations: no limitations History of Present Illness HPI narrative: 40 y/o female. PMH includes: None pertinent. Presents to ED today with acute complaints of rash located to RT axilla for past 1 week. She reports associated pruritus and localized irritation. No fevers. No additional areas of integumentary involvement. Client expresses to believe it was irritated from a bra she wore at the time . No dyspnea, wheezing. No additional acute complaints of illness identified. Related Data Home Medications Medication Instructions Recorded Confirmed methadone 50 mg PO DAILY 01/12/20 08/20/20 Allergies Allergy/AdvReac Type Severity Reaction Status Date / Time doxycycline Allergy Unknown Nausea Verified 08/20/20 19:51 Sulfa (Sulfonamide Allergy Unknown RASH, Verified 08/20/20 19:51 Antibiotics) VOMITING Review of Systems Review of Systems: Narrative: CONSTITUTIONAL: Denies fever, chills, sweats. EYES: Denies visual changes, redness, discharge. ENT: Denies rhinorrhea, congestion, sore throat, otalgia. CARDIOVASCULAR: Denies chest pain, palpitations, edema. RESPIRATORY: Denies dyspnea, wheezing, cough GASTROINTESTINAL: Denies abdominal pain, nausea, vomiting, diarrhea. GENITOURINARY: Denies dysuria, hematuria, abnormal discharge SKIN: Positive rash & itching RT axilla. MUSCULOSKELETAL: Denies acute back pain, joint pain, or myalgia. NEUROLOGIC: Denies numbness, or focal weakness. PSYCHIATRIC: Denies anxiety or depression. All systems reviewed & are unremarkable except as noted in HPI and below PMFSH Past Medical History Medical History Anxiety Depression Frequent UTI Herpes simplex 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 Neuropathy Opioid use Vicodin Opioid use Vicodin Opioid use Vicodin Substance abuse On methadone Toenail fungus Surgical History Surgical History H/O: hysterectomy Hx of tonsillectomy Family History Family History Other No significant family history Social History Social History Smoking packs per day: 1 Smoking cigarettes per day: 20.0 Years smoked: 20 Smoking pack-years: 20.00 Smoking status: Current every day smoker Second hand tobacco smoke exposure: Yes Alcohol intake: never Substance use: former Substance use type: painkillers Other substance usage details: Deirdre denies using recreational drugs at this time Gender identity (if verbalized by the patient): Female Exam Narrative: Exam Narrative: GENERAL: This is a well-nourished, well-developed patient, in no apparent distress. HEAD: normocephalic, atraumatic. EYES: PERRL. EARS: External ears normal. NOSE: External nose normal. THROAT: Mucous membranes moist, posterior pharynx clear. NECK: Neck supple, non-tender without lymphadenopathy, masses or thyromegaly. CARDIOVASCULAR: Regular rate and rhythm without murmurs, gallops, or rubs. RESPIRATORY: Clear to auscultation. Breath sounds equal bilaterally. No wheezes, rales, or rhonchi. GASTROINTESTINAL: Abdomen soft, non-tender, nondistended. NEURO: No obvious focal neurologic abnormalities. Steady gait EXTREMITIES: Normal range of motion. No edema. No calf tenderness. Negative Homans sign bilaterally. SKIN: With area of localized rash/contact dermatitis to RT axilla. Mild erythema and fine raised patches. No open wounds or discharge. No fluctuance. Course Vital Signs Vital signs: Vital Signs Temperature 36.0 C L 08/20/20 19:38 Pulse Rate 72 08/20/20 19:38 Respiratory Rate 16 08/20/20 19:38 Blood Pressure 116/77 08/20/20 19:38 Pulse Oximetry
== END 2020-08-20 20:03 | disposition home or self-care (01) ==
PROVIDERS: Emergency Provider Nurse Practitioner Adult Health; PCP Family Medicine
DX: L24.9 Irritant contact dermatitis, unspecified cause (principal); F17.210 Nicotine dependence, cigarettes, uncomplicated
CPT/HCPCS: 99213; G0463

== ENCOUNTER 2020-09-26 11:26 | Outpatient (CLI) | payer OTHER, SELFPAY ==
[2020-09-26 12:36] LABS: Hematocrit 39.8 % (37.0-47.0); Hemoglobin 13.4 g/dL (12.0-15.0); Mean Corpuscular HGB Conc 33.7 g/dl (32-36); Mean Corpuscular Hemoglobin 30.8 pg (26-34); Mean Corpuscular Volume 91.5 fl (80-100); Mean Platelet Volume 9.6 fl (7.4-10.4); Platelet Count Result 299 k/mm3 (150-375); Red Blood Count 4.35 M/mm3 (4.2-5.4); Red Cell Distribution Width 13.1 % (11.5-14.5); White Blood Count 11.1 K/mm3 (4.5-10.0)
[2020-09-26 12:41] LABS: Alanine Aminotransferase 36 U/L (4-35); Albumin Level 4.3 g/dL (3.5-5.1); Alkaline Phosphatase 108 U/L (38-126); Anion Gap 9 mmol/L (8-16); Aspartate Amino Transferase 37 U/L (14-36); Bilirubin,Total 0.4 mg/dL (0.2-1.3); Blood Urea Nitrogen 17 mg/dL (7-17); Calcium 9.8 mg/dL (8.4-10.2); Carbon Dioxide 27 mmol/L (22-30); Chloride 106 mmol/L (98-107); Cholesterol 169 mg/dL (0-200); Estimated Glomerular Filt Rate > 60; Glucose 88 mg/dL (65-105); HDL Direct 34 mg/dL; Potassium 4.4 mmol/L (3.4-5.0); Sodium 142 mmol/L (137-145); Triglycerides 142 mg/dL (<150)
[2020-09-26 12:52] LABS: LDL Cholesterol Direct 100 mg/dL
[2020-09-26 13:46] LABS: Folic Acid 14.6 ng/mL (2.76->20)
[2020-09-26 14:03] LABS: Atypical Lymphocytes Present; Band Neutrophils Percent 1 % (0-6); Eosinophils Absolute Manual 0.44 K/mm3 (0.02-0.5); Eosinophils Percent Manual 4 % (0-4); Lymphocytes Absolute Manual 4.32 K/mm3 (1.1-4.5); Monocytes Absolute Manual 0.66 K/mm3 (0.1-0.90); Monocytes Percent Manual 6 % (3-9); Neutrophils Absolute Manual 5.66 K/mm3 (1.7-7.2); Neutrophils Percent Manual 50 % (46-73); Platelet Estimate Adequate (Adequate); Total Cells Counted 100
[2020-09-26 14:06] LABS: Iron 98 ug/dL (37-170); Percent Iron Saturation 30 % (20-50); Vitamin D 25 Hydroxy 48.3 ng/mL
== END 2020-09-26 11:27 | disposition home or self-care (01) ==
LOC: ANHLAB 11:28
PROVIDERS: PCP Family Medicine; Visit Provider Family Medicine
DX: Z00.00 Encounter for general adult medical examination without abnormal findings (principal)
CPT/HCPCS: 36415; 80053; 80061; 82306; 82607; 82746; 83540; 83550; 84443; 85025

== ENCOUNTER 2020-10-15 09:32 | Outpatient (CLI) | payer OTHER, SELFPAY ==
--- NOTE | ~2020-10-15 | US_ITS ---
EXAMINATION: US carotid duplex BI DATE: 10/15/2020 10:22 INDICATION: Left facial hemiplegia, palpitations. TECHNIQUE: Grayscale, color Doppler, and pulsed Doppler images of the cervical carotid arteries were obtained. The degree of vessel stenosis is placed in one of the following categories: normal, <50%, 5 0-69%, >=70% but less than near-occlusion, near-occlusion, or total occlusion. Note that percent sten osis relative to normal distal artery lumen diameter is indirectly measured from velocity measurement s as described by Julius, et al. Radiology 2003; 229:[id number]. COMPARISON: None. FINDINGS: RIGHT: The right common carotid artery (CCA) peak systolic velocity (PSV) is 119 cm/s. The right internal ca rotid artery (ICA) PSV is 87 cm/s. The right ICA end-diastolic velocity (EDV) is 32 cm/s. The right I CA/CCA PSV ratio is 0.7. Grayscale and color Doppler images yield an estimate of <50% diameter reduct ion from plaque in the ICA. The external carotid artery (ECA) PSV is 82 cm/s. There is antegrade flow in the right vertebral artery. LEFT: The left CCA PSV is 106 cm/s. The left ICA PSV is 84 cm/s. The left ICA EDV is 35 cm/s. The left ICA/ CCA PSV ratio is 0.8. Grayscale and color Doppler images yield an estimate of <50% diameter reduction from plaque in the ICA. The ECA PSV is 61 cm/s. There is antegrade flow in the left vertebral artery . IMPRESSION: 1. <50% stenosis from negligible plaque in the right internal carotid artery. 2. <50% stenosis from negligible plaque in the left internal carotid artery. Reviewed, dictated and finalized at location A.
--- NOTE | ~2020-10-15 | CT_ITS ---
EXAMINATION: CT brain wo con DATE: 10/15/2020 10:24 INDICATION: Migraine headaches. Intermittent dizziness. Left facial and might plegia. TECHNIQUE: Computed tomography (CT) of the head was performed without intravenous contrast. The mA wa s adjusted according to patient size. Iterative reconstruction technique was employed. Exam dose: 60 5.33 mGy-cm total exam DLP. COMPARISON: None FINDINGS: No intracranial mass lesion or hemorrhage or cerebrovascular accident. No midline shift or mass effect. Normal bailey-white matter differentiation. Normal ventricular size. No subdural or epidural hematoma. The mastoid air cells are clear. Normal development and aeration of the included paranasal sinuses. No fracture or bone destruction of the cranial vault. IMPRESSION: No significant abnormality Reviewed, dictated and finalized at Location A. Reviewed, dictated and finalized at location A. IMPRESSION: No significant abnormality
== END 2020-10-15 09:33 | disposition home or self-care (01) ==
PROVIDERS: PCP Family Medicine; Visit Provider Family Medicine
DX: R00.2 Palpitations (principal); G81.90 Hemiplegia, unspecified affecting unspecified side; I65.23 Occlusion and stenosis of bilateral carotid arteries
CPT/HCPCS: 70450; 93880

== ENCOUNTER 2020-10-26 14:54 | Emergency (ER) | payer OTHER, SELFPAY ==
--- NOTE | ~2020-10-26 | XR_ITS ---
EXAMINATION: XR chest 2V DATE: 10/26/2020 15:18 INDICATION: Midsternal chest pain TECHNIQUE: PA and lateral views of the chest are obtained. COMPARISON: 06/22/2018 FINDINGS: The lungs are free of acute opacities. There is no pleural effusion or pneumothorax. The ca rdiomediastinal silhouette is normal. There is mild thoracic spondylosis. IMPRESSION: 1. No acute cardiopulmonary abnormality. Reviewed, dictated and finalized at location A.
--- NOTE | 2020-10-26 14:55 | ECG_ITS ---
Measurements Intervals [place] Rate: 61 P: 50 ID: [id number] QRS: 48 QRSD: 92 T: 19 QT: 395 QTc: 400 Interpretive Statements SINUS RHYTHM WITH FIRST DEGREE AV BLOCK POSSIBLE LEFT ATRIAL ENLARGEMENT BASELINE ARTIFACT- V5 ABNORMAL ECG Electronically Signed On 10-26-2020 17:47:30 CDT by Guillermo Polk D.O.
[2020-10-26 15:00] VITALS: BP 133/82; PULSE 67; RESP 18; TEMP 36.2; O2SAT 99
[2020-10-26 15:11] LABS: Basophils Percent Auto 0.4 % (0.2-1.2); Eosinophils Absolute Auto 0.4 K/mm3 (0-0.3); Eosinophils Percent Auto 3.6 % (0-4.4); Hematocrit 38.4 % (37.0-47.0); Immature Granulocyte Absolute 0.03 K/mm3 (0.00-0.031); Immature Granulocyte Percent A 0.3 % (0-0.5); Lymphocytes Absolute Auto 4.91 K/mm3 (0.9-3.2); Lymphocytes Percent Auto 47.9 % (18.3-44.2); Mean Corpuscular HGB Conc 33.9 g/dl (32-36); Mean Corpuscular Hemoglobin 31.3 pg (26-34); Mean Corpuscular Volume 92.5 fl (80-100); Mean Platelet Volume 9.6 fl (7.4-10.4); Monocytes Absolute Auto 0.8 K/mm3 (0.1-0.6); Monocytes Percent Auto 8.2 % (2.6-8.5); Neutrophils Absolute Auto 4.1 K/mm3 (1.3-6.7); Neutrophils Percent Auto 39.6 % (45.5-73.1); Platelet Count Result 283 k/mm3 (150-375); Red Blood Count 4.15 M/mm3 (4.2-5.4); Red Cell Distribution Width 12.9 % (11.5-14.5); White Blood Count 10.3 K/mm3 (4.5-10.0)
[2020-10-26 15:21] LABS: Anion Gap 9 mmol/L (8-16); Blood Urea Nitrogen 15 mg/dL (7-17); Calcium 9.4 mg/dL (8.4-10.2); Carbon Dioxide 24 mmol/L (22-30); Chloride 107 mmol/L (98-107); Estimated CRCL calculation 77 ml/min; Estimated Glomerular Filt Rate > 60; Glucose 80 mg/dL (65-110); INR 0.9; Potassium 4.1 mmol/L (3.4-5.0); Prothrombin Time 11.8 Seconds (11.1-14.7); Sodium 140 mmol/L (137-145)
[2020-10-26 15:22] LABS: Partial Thromboplastin Time 26.8 SECONDS (22.3-36.8)
[2020-10-26 15:25] LABS: Atypical Lymphocytes Present; Platelet Estimate Adequate (Adequate)
[2020-10-26 15:52] LABS: Troponin I < 0.012 ng/mL (0.000-0.034)
--- NOTE | 2020-10-26 16:25 | PC.NURSE ---
Called for room, no answer.
--- NOTE | 2020-10-26 16:38 | PC.NURSE ---
Called for room, no answer x2
--- NOTE | 2020-10-26 16:46 | PC.NURSE ---
pt called for room x3, no answer.
== END 2020-10-26 19:00 | disposition left against medical advice (07) ==
PROVIDERS: Emergency Provider Emergency Medicine; PCP Family Medicine
DX: R07.9 Chest pain, unspecified (principal)
CPT/HCPCS: 36415; 71046; 80048; 84484; 85025; 85610; 85730; 93005; 99199

== ENCOUNTER → 2020-10-31 07:10 | Outpatient (CLI) | payer OTHER, SELFPAY ==
[2020-11-01 02:32] LABS: SARS-CoV-2 RNA PCR Negative
== END ==
PROVIDERS: PCP Family Medicine; Visit Provider Physician Assistant
DX: B34.9 Viral infection, unspecified (principal); Z20.822 Contact with and (suspected) exposure to COVID-19
CPT/HCPCS: C9803; U0003; U0005

== ENCOUNTER 2021-01-14 20:39 | Emergency (ER) | payer OTHER, SELFPAY ==
--- NOTE | ~2021-01-14 | CT_ITS ---
EXAMINATION: CT abdomen pelvis w con INDICATION: Right-sided abdominal pain TECHNIQUE: Computed tomographic images of the abdomen and pelvis were obtained after the administrati on of 100 cc of Omnipaque 350 intravenous contrast. The dose-length product (DLP) was 366.10 mGy-cm. Automated exposure control and iterative reconstruction technique were employed. COMPARISON: 06/09/2017 FINDINGS: The lung bases are clear. The heart size is normal. There is a small sliding hiatal hernia. The liver, spleen, pancreas, gallbladder, and adrenal glands are normal. The kidneys are unremarkabl e. No pathologically enlarged abdominal or pelvic lymph nodes are identified. The appendix is normal. There is a small fat-containing umbilical hernia. IMPRESSION: 1. No CT correlate for the patient's symptoms. Reviewed, dictated and finalized at location A.
[2021-01-14 20:44] VITALS: BP 144/70; PULSE 80; RESP 20; TEMP 36.1; O2SAT 99
[2021-01-14 21:28] LABS: Basophils Percent Auto 0.3 % (0.2-1.2); Eosinophils Absolute Auto 0.2 K/mm3 (0-0.3); Eosinophils Percent Auto 1.9 % (0-4.4); Hematocrit 42.3 % (37.0-47.0); Hemoglobin 14.5 g/dL (12.0-15.0); Immature Granulocyte Absolute 0.04 K/mm3 (0.00-0.031); Immature Granulocyte Percent A 0.3 % (0-0.5); Lymphocytes Absolute Auto 4.92 K/mm3 (0.9-3.2); Lymphocytes Percent Auto 38.9 % (18.3-44.2); Mean Corpuscular HGB Conc 34.3 g/dl (32-36); Mean Corpuscular Hemoglobin 31.3 pg (26-34); Mean Corpuscular Volume 91.2 fl (80-100); Mean Platelet Volume 9.6 fl (7.4-10.4); Monocytes Absolute Auto 0.6 K/mm3 (0.1-0.6); Monocytes Percent Auto 4.9 % (2.6-8.5); Neutrophils Absolute Auto 6.8 K/mm3 (1.3-6.7); Neutrophils Percent Auto 53.7 % (45.5-73.1); Platelet Count Result 310 k/mm3 (150-375); Red Blood Count 4.64 M/mm3 (4.2-5.4); Red Cell Distribution Width 12.6 % (11.5-14.5); White Blood Count 12.6 K/mm3 (4.5-10.0)
--- NOTE | 2021-01-14 21:30 | ED.ABDPAIN ---
HPI - Abdominal Pain General Chief Complaint: Abdominal Pain Stated Complaint: abd pain Time Seen by Provider: 01/14/21 21:04 Source: patient Mode of arrival: ambulatory Limitations: no limitations History of Present Illness HPI narrative: Patient is a 40-year-old female complaining of right upper quadrant pain, 8 out of 10, aching, nonradiating accompanied by nausea started last night after eating a steak sandwich. Patient states that she had a similar episode a few months ago, given a GI cocktail which resolved the symptoms. Patient denies any chest pain, shortness of breath, vomiting, diarrhea, fever, chills or urinary symptoms. Related Data Home Medications Medication Instructions Recorded Confirmed methadone 50 mg PO DAILY 01/12/20 08/20/20 Allergies Allergy/AdvReac Type Severity Reaction Status Date / Time Sulfa (Sulfonamide Allergy Unknown RASH, Verified 08/20/20 19:51 Antibiotics) VOMITING doxycycline AdvReac Unknown Nausea Verified 10/26/20 14:57 Review of Systems Review of Systems: All systems reviewed & are unremarkable except as noted in HPI and below Constitutional: Constitutional: Denies body ache(s), Denies chills, Denies excessive sweating, Denies fatigue, Denies fever(s), Denies headache(s), Denies lethargy, Denies malaise, Denies weakness and Denies weight loss Eyes: Eyes: Denies blurry vision, Denies change in vision and Denies loss of vision ENT: Denies dizziness, Denies ear discharge, Denies headache(s), Denies lip swelling, Denies epistaxis, Denies nasal congestion, Denies neck pain, Denies throat swelling and Denies tongue swelling Cardiovascular: Cardiovascular: Denies chest pain, Denies chest pain at rest, Denies chest pain with activity, Denies diaphoresis, Denies rapid heart rate, Denies edema, Denies irregular heart rhythm, Denies lightheadedness, Denies palpitations, Denies dyspnea and Denies dyspnea on exertion Respiratory: Respiratory: Denies chest congestion, Denies cough, Denies hemoptysis, Denies dyspnea and Denies dyspnea on exertion Gastrointestinal: Gastrointestinal: Denies melena, Denies hematochezia, Denies diarrhea, Denies vomiting and Denies hematemesis Musculoskeletal: Musculoskeletal: Denies abnormal gait, Denies deformity, Denies joint swelling, Denies limited range of motion, Denies neck pain and Denies numbness Neurologic: Denies Abnormal speech present, Denies abnormal gait, Denies confusion, Denies dizziness, Denies headache(s), Denies focal weakness, Denies loss of vision, Denies numbness, Denies Other visual disturbances, Denies Sensory deficit (Neuro) and Denies weakness Psychiatric: Psychiatric: Denies confusion, Denies depression, Denies auditory hallucinations, Denies homicidal ideation and Denies suicidal ideation Endocrine: Endocrine: Denies cold intolerance, Denies excessive sweating, Denies fatigue, Denies heat intolerance and Denies palpitations Hematologic/Lymphatic: Hematologic/Lymphatic: Denies easy bleeding and Denies easy bruising Allergic/Immunologic: Allergic/Immunologic: Denies lip swelling, Denies throat swelling and Denies tongue swelling PMFSH Past Medical History Medical History Anxiety Depression Frequent UTI Herpes simplex 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 Neuropathy Opioid use Vicodin Opioid use Vicodin Opioid use Vicodin Substance abuse On methadone Toenail fungus Surgical History Surgical History H/O: hysterectomy Hx of tonsillectomy Family History Family History Other No significant family history Social History Social History Smoking packs per day: 1 Smoking cigarettes per day: 20.0 Years smoked: 20 Smoking pack-years: 20.00 Smoking status: Current every day sm
[2021-01-14 21:45] LABS: Alanine Aminotransferase 27 U/L (4-35); Albumin Level 4.8 g/dL (3.5-5.1); Alkaline Phosphatase 104 U/L (38-126); Anion Gap 9 mmol/L (8-16); Aspartate Amino Transferase 30 U/L (14-36); Bilirubin,Total 0.4 mg/dL (0.2-1.3); Blood Urea Nitrogen 14 mg/dL (7-17); Calcium 9.8 mg/dL (8.4-10.2); Carbon Dioxide 26 mmol/L (22-30); Chloride 106 mmol/L (98-107); Estimated CRCL calculation 75 ml/min; Estimated Glomerular Filt Rate > 60; Glucose 97 mg/dL (65-110); Lipase 55 U/L (23-300); Potassium 4.1 mmol/L (3.4-5.0); Sodium 141 mmol/L (137-145)
[2021-01-14 21:46] LABS: Add Urine Microscopic? YES; Appearance Urine Clear (Clear); Bilirubin Urine Negative (Negative); Blood Urine Negative (Negative); Color Urine Yellow (Yellow); Glucose Urine UA Negative (Negative); Ketones Urine Negative (Negative); Leukocyte Esterase Ur Negative LEU/UL (Negative); Nitrate Urine Negative (Negative); Protein Urine Negative (Negative); RBC Urine 0-2 /hpf (0-2); Specific Grav Ur 1.026 (1.001-1.035); Squamous Epithelial Cell Urine Occasional /hpf (Few); Urobilinogen Urine Negative mg/dL (<2.0); WBC Urine 0-3 /hpf
[2021-01-14] MEDS: KETOROLAC 30 MG/ML VIAL (*BKC) IV PUSH (22:02)
[2021-01-14] MEDS: ONDANSETRON INJ 4 MG/2 ML VIAL IV PUSH (22:02)
[2021-01-14] MEDS: SODIUM CHLORIDE 0.9% IV 1,000 ML 999 ML IV CONT (22:02)
[2021-01-14 22:30] VITALS: BP 144/81; PULSE 60; RESP 18; O2SAT 100
[2021-01-15] MEDS: BELLADONNA ALK/PHENOB ELIX 10 ML, MAG HYDROX/ALUMINUM HYD/SIMETH 30 ML, LIDOCAINE HCL 2... PO (00:01)
[2021-01-15 00:33] VITALS: BP 136/100; PULSE 82; RESP 18; O2SAT 95
== END 2021-01-15 00:43 | disposition home or self-care (01) ==
PROVIDERS: Family Medicine; Emergency Provider Emergency Medicine; PCP Family Medicine
DX: K29.00 Acute gastritis without bleeding (principal); F41.9 Anxiety disorder, unspecified; F32.9 Major depressive disorder, single episode, unspecified; Z87.440 Personal history of urinary (tract) infections
CPT/HCPCS: 36415; 74177; 80053; 81001; 81025; 83690; 85025; 96374; 96375; 99284; A9270; J1885; J2405; J7030; Q9967

== ENCOUNTER 2021-03-31 12:47 | Emergency (ER) | payer OTHER, SELFPAY ==
--- NOTE | ~2021-03-31 | XR_ITS ---
EXAMINATION: XR shoulder RT min 2V DATE: 03/31/2021 13:11 INDICATION: Right shoulder pain. TECHNIQUE: 4 views of right shoulder were obtained. COMPARISON: None. FINDINGS: Bone alignment is normal. No fracture. There is mild osteoarthritis of glenohumeral joint a nd acromioclavicular joint. IMPRESSION: 1. Mild polyarticular osteoarthritis. Reviewed, dictated and finalized at location A. 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
[2021-03-31 12:54] VITALS: BP 123/99; PULSE 78; RESP 18; TEMP 36.6; O2SAT 98
[2021-03-31] MEDS: KETOROLAC (*BKC) 60 MG/2 ML VIAL IM (14:34)
--- NOTE | 2021-03-31 15:44 | ED.UPPEXIN ---
HPI - Extremity Injury (Upper) General Chief Complaint: Extremity Injury, Upper Stated Complaint: shoulder pain Time Seen by Provider: 03/31/21 13:17 History of Present Illness HPI narrative: Patient is a 40-year-old female who presents ER with right shoulder pain. Worsening over the last couple days. 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 It has since worsened anytime she performs the same motion. No numbness or tingling. Pain is worse with abduction as well as external rotation. Denies neck pain. No fevers or chills. Related Data Home Medications Medication Instructions Recorded Confirmed methadone 50 mg PO DAILY 01/12/20 08/20/20 Allergies Allergy/AdvReac Type Severity Reaction Status Date / Time Sulfa (Sulfonamide Allergy Unknown RASH, Verified 08/20/20 19:51 Antibiotics) VOMITING doxycycline AdvReac Unknown Nausea Verified 10/26/20 14:57 Review of Systems Gastrointestinal: Gastrointestinal: Denies nausea and Denies vomiting Musculoskeletal: Musculoskeletal: Reports arthralgias, Denies joint swelling and Denies muscle cramps Neurologic: Denies focal weakness and Denies numbness PMFSH Past Medical History Medical History Anxiety Depression Frequent UTI Herpes simplex 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 Neuropathy Opioid use Vicodin Opioid use Vicodin Opioid use Vicodin Substance abuse On methadone Toenail fungus Surgical History Surgical History H/O: hysterectomy Hx of tonsillectomy Family History Family History Other No significant family history Social History Social History Smoking packs per day: 1 Smoking cigarettes per day: 20.0 Years smoked: 20 Smoking pack-years: 20.00 Smoking status: Current every day smoker Second hand tobacco smoke exposure: Yes Alcohol intake: never Substance use: former Substance use type: painkillers Other substance usage details: Deirdre denies using recreational drugs at this time Gender identity (if verbalized by the patient): Female Exam Narrative: GENERAL: Well-appearing, well-nourished, and in no acute distress. HEAD: Normocephalic, atraumatic. CHEST: Clear to auscultation. No respiratory distress. HEART: Regular rate and rhythm. Normal peripheral pulses. EXTREMITIES: N focused exam right upper extremity reveals tenderness over the anterior aspect of the right shoulder with increased pain with external rotation as well as abduction. Patient also has some spasm of her right trapezius musculature. SKIN: Warm, dry, no rash. NEURO: No focal deficits. Alert and oriented x3. PSYCH: Normal mood and affect. Course Course Emergency Course: Patient informed of diagnosis and treatment plan. Discharge home. Vital Signs Vital signs: Vital Signs Temperature 97.9 F 03/31/21 12:54 Pulse Rate 78 03/31/21 12:54 Respiratory Rate 18 03/31/21 12:54 Blood Pressure 123/99 H 03/31/21 12:54 Pulse Oximetry 98 03/31/21 12:54 Temperature 97.9 F 03/31/21 12:54 Pulse Rate 78 03/31/21 12:54 Respiratory Rate 18 03/31/21 12:54 Blood Pressure 123/99 H 03/31/21 12:54 Pulse Oximetry 98 03/31/21 12:54 MDM - Extremity Injury (Upper) Imaging Data Radiologist's impression: ITS Impressions Shoulder X-Ray 03/31/21 13:13 IMPRESSION: 1. Mild polyarticular osteoarthritis. Discharge Plan Discharge Clinical Impression: Biceps tendinitis Patient Disposition: Home, Self-Care Condition: Stable Instructions: Biceps Tenodesis (DC) Additional Instructions: Return to the ER if you suffer new injury, you have new numbness or tingling in your arm/leg, redevelop fever over 100.4 ?F. Prescriptions: New cyclobenza
== END 2021-03-31 16:44 | disposition home or self-care (01) ==
PROVIDERS: Emergency Provider Emergency Medicine; PCP Family Medicine
DX: M75.21 Bicipital tendinitis, right shoulder (principal); M19.011 Primary osteoarthritis, right shoulder; F17.210 Nicotine dependence, cigarettes, uncomplicated
CPT/HCPCS: 73030; 96372; 99283; A4565; J1885

== ENCOUNTER 2021-05-03 21:36 | Emergency (ER) | payer OTHER, SELFPAY ==
[2021-05-03 21:39] VITALS: BP 129/73; PULSE 97; RESP 20; TEMP 36.7; O2SAT 98
--- NOTE | 2021-05-03 23:32 | PC.NURSE ---
PT leaving with boyfriend states they are going to a different hospital the wait is to long.
== END 2021-05-03 23:32 | disposition left against medical advice (07) ==
DX: G43.909 Migraine, unspecified, not intractable, without status migrainosus (principal)
CPT/HCPCS: 99199

== ENCOUNTER 2021-05-19 11:29 | Outpatient (CLI) | payer OTHER, SELFPAY ==
--- NOTE | ~2021-05-19 | XR_ITS ---
EXAMINATION: XR chest 2V EXAM DATE: 05/19/2021 11:53 INDICATION: Tobacco use. TECHNIQUE: Frontal and lateral projections of the chest obtained and reviewed. Comparison is made to prior examination from 10/26/2020. FINDINGS: Development of small amount of nonspecific left upper lobe airspace disease, could be infe ctious or postinfectious. Consider one-month follow-up chest x-ray. The lungs are otherwise clear. T here are no pleural effusions. The cardiomediastinal silhouette is within normal limits. There is n o pneumothorax suspected. The bones and soft tissues are unremarkable. IMPRESSION: Development of small amount of nonspecific left upper lobe airspace disease, could be inf ectious or postinfectious, but recommend one-month follow-up chest x-ray. Reviewed, dictated and finalized at location A. 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
[2021-05-19 12:44] LABS: Hematocrit 40.1 % (37.0-47.0); Hemoglobin 13.7 g/dL (12.0-15.0); Mean Corpuscular HGB Conc 34.2 g/dl (32-36); Mean Corpuscular Hemoglobin 31.6 pg (26-34); Mean Corpuscular Volume 92.6 fl (80-100); Mean Platelet Volume 9.6 fl (7.4-10.4); Platelet Count Result 348 k/mm3 (150-375); Red Blood Count 4.33 M/mm3 (4.2-5.4); Red Cell Distribution Width 13.2 % (11.5-14.5); White Blood Count 13.1 K/mm3 (4.5-10.0)
[2021-05-19 12:59] LABS: Alanine Aminotransferase 32 U/L (4-35); Albumin Level 4.4 g/dL (3.5-5.1); Alkaline Phosphatase 97 U/L (38-126); Anion Gap 6 mmol/L (8-16); Aspartate Amino Transferase 34 U/L (14-36); Bilirubin,Total 0.5 mg/dL (0.2-1.3); Blood Urea Nitrogen 16 mg/dL (7-17); Carbon Dioxide 27 mmol/L (22-30); Chloride 105 mmol/L (98-107); Cholesterol 175 mg/dL (0-200); Estimated Glomerular Filt Rate > 60; Glucose 80 mg/dL (65-110); HDL Direct 31 mg/dL; Potassium 4.4 mmol/L (3.4-5.0); Sodium 138 mmol/L (137-145); Triglycerides 160 mg/dL (<150)
[2021-05-19 13:09] LABS: LDL Cholesterol Direct 117 mg/dL
[2021-05-19 13:10] LABS: Creatinine Urine 138.7 mg/dL
[2021-05-19 13:17] LABS: MALB Creatinine Ratio < 4.3 mg/g (0-30); Microalbumin Urine Random < 6.0 mg/L (0-16.7)
[2021-05-19 13:20] LABS: Free T4 Free Thyroxine 1.11 ng/mL (0.78-2.19); Vitamin D 25 Hydroxy 67.3 ng/mL
[2021-05-19 13:40] LABS: Hemoglobin A1C 5.1 % (<5.7)
== END 2021-05-19 11:30 | disposition home or self-care (01) ==
PROVIDERS: PCP Emergency Medicine; Visit Provider Emergency Medicine
DX: Z72.0 Tobacco use (principal); R91.8 Other nonspecific abnormal finding of lung field
CPT/HCPCS: 36415; 71046; 80053; 80061; 82043; 82306; 83036; 84439; 84443; 85027

== ENCOUNTER 2021-06-17 10:25 | Outpatient (CLI) | payer OTHER, SELFPAY ==
--- NOTE | ~2021-06-17 | XR_ITS ---
EXAMINATION: XR chest 2V 06/17/2021 10:49 INDICATION: Follow-up left upper lobe infiltrate PROCEDURE: 2 view chest COMPARISON: 05/19/2021 FINDINGS: The lungs are clear. Left upper lobe infiltrate is resolved. The cardiomediastinal silhouet te is within normal limits. There are no pleural effusions. There is no pneumothorax suspected. IMPRESSION: 1: NO ACUTE CARDIOPULMONARY DISEASE. Reviewed, dictated and finalized at location A.
[2021-06-17 11:30] LABS: Hemoglobin 13.6 g/dL (12.0-15.0); Mean Corpuscular HGB Conc 32.4 g/dl (32-36); Mean Corpuscular Hemoglobin 31.2 pg (26-34); Mean Corpuscular Volume 96.3 fl (80-100); Mean Platelet Volume 9.5 fl (7.4-10.4); Platelet Count Result 301 k/mm3 (150-375); Red Blood Count 4.36 M/mm3 (4.2-5.4); Red Cell Distribution Width 13.8 % (11.5-14.5); White Blood Count 13.7 K/mm3 (4.5-10.0)
== END 2021-06-17 10:26 | disposition home or self-care (01) ==
PROVIDERS: PCP Emergency Medicine; Visit Provider Emergency Medicine
DX: D72.829 Elevated white blood cell count, unspecified (principal); R79.9 Abnormal finding of blood chemistry, unspecified; R91.8 Other nonspecific abnormal finding of lung field
CPT/HCPCS: 36415; 71046; 85027

== ENCOUNTER 2021-07-01 16:27 | Emergency (ER) | payer OTHER, SELFPAY ==
[2021-07-01 16:28] VITALS: BP 143/89; PULSE 70; RESP 20; TEMP 36.6; O2SAT 100
--- NOTE | 2021-07-01 16:42 | PC.NURSE ---
PATIENT STATES THAT SHE HAS LOST VISION IN RIGHT EYE LAST 2 TIMES SHE GOT A MIGRAINE, WITH LAST MIGRAINE BEING A MONTH AGO
--- NOTE | 2021-07-01 16:48 | ED.HA ---
HPI - Headache General Chief Complaint: Headache Stated Complaint: migraine x 2 days Time Seen by Provider: 07/01/21 16:38 History of Present Illness HPI Narrative: Patient is a 41-year-old female with a history of migraine headaches who presents for 6 hours of her typical migraine headache. Denies relief after sumatriptan and Excedrin Migraine. She states her migraine is located around her right orbit and is associated with some visual changes, which is common for her migraines. She states that she has some trouble with her peripheral vision on the right whenever she has a migraine. Denies aura prior to her migraine onset. Additionally reporting photophobia and nausea, but no vomiting. Denies weakness, trauma, falls, loss of consciousness, fevers. States she has had rhinorrhea for the past 2 weeks that is associated with some sinus pressure. Her rhinorrhea improved temporarily, but they returned and worsened about 4 days ago. She has not tried anything for her rhinorrhea/congestion. Related Data Home Medications Medication Instructions Recorded Confirmed methadone 50 mg PO DAILY 01/12/20 08/20/20 Allergies Allergy/AdvReac Type Severity Reaction Status Date / Time Sulfa (Sulfonamide Allergy Unknown RASH, Verified 07/01/21 16:41 Antibiotics) VOMITING doxycycline AdvReac Unknown Nausea Verified 07/01/21 16:41 Review of Systems Review of Systems: Gen.: Denies fevers or chills Eyes: Denies eye pain or visual change ENT: Reports visual changes, rhinorrhea and congestion. Respiratory: Denies shortness of breath or cough CV: Denies chest pain or palpitations GI: Denies abdominal pain nausea, emesis or diarrhea denies burning, urgency, frequency or hematuria Musculoskeletal: Denies back pain or muscle pain Neuro: Reports headache. Denies numbness, tingling, weakness or focal weakness Skin: Denies rash Except as documented, all other systems reviewed and negative PMFSH Past Medical History Medical History Anxiety Depression Frequent UTI Herpes simplex 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 Neuropathy Opioid use Vicodin Opioid use Vicodin Opioid use Vicodin Substance abuse On methadone Toenail fungus Surgical History Surgical History H/O: hysterectomy Hx of tonsillectomy Family History Family History Other No significant family history Social History Social History Smoking packs per day: 1 Smoking cigarettes per day: 20.0 Years smoked: 20 Smoking pack-years: 20.00 Smoking status: Current every day smoker Second hand tobacco smoke exposure: Yes Alcohol intake: never Substance use: former Substance use type: painkillers Other substance usage details: Deirdre denies using recreational drugs at this time Gender identity (if verbalized by the patient): Female Exam Narrative: APPEARANCE: Uncomfortable appearing female lying in a dark room. Head normocephalic and atraumatic. EYES: PERRLA/EOMI, conjunctivae clear. Photophobic. NOSE: Clear sinus drainage to bilateral nares. Tender over maxillary sinuses bilaterally. EARS: External ear normal in appearance THROAT: Oropharynx is clear. Mucous membranes are moist. NECK: Supple. No adenopathy, no masses. No meningismus. RESPIRATORY: Airway patent, respirations nonlabored. Clear to auscultation bilaterally, no rales, rhonchi, wheezing. CARDIOVASCULAR: Regular rate and rhythm without murmurs, rubs, or gallops. ABDOMINAL: Normoactive bowel sounds. Soft, nontender, nondistended. No rebound tenderness or guarding. MUSCULOSKELETAL: Extremities are warm and well-perfused. Moves all extremities well. No edema. NEURO: Cranial nerves II through XII intact. Normal speech. No focal neurologic def
[2021-07-01] MEDS: SODIUM CHLORIDE 0.9% IV 1,000 ML 999 ML IV CONT (17:01)
[2021-07-01] MEDS: diphenhydrAMINE HCl INJ 50 MG/ML VIAL 25 MG IV PUSH (17:01)
[2021-07-01] MEDS: PROCHLORPERAZINE EDISYLATE 10 MG/2 ML VIAL IV PUSH (17:01)
== END 2021-07-01 18:19 | disposition home or self-care (01) ==
PROVIDERS: Emergency Provider Family Medicine; PCP Emergency Medicine
DX: G43.909 Migraine, unspecified, not intractable, without status migrainosus (principal); J01.90 Acute sinusitis, unspecified; F17.210 Nicotine dependence, cigarettes, uncomplicated; F41.9 Anxiety disorder, unspecified; F32.9 Major depressive disorder, single episode, unspecified
CPT/HCPCS: 81025; 96361; 96374; 96375; 99284; J0780; J1200; J7030

== ENCOUNTER 2021-09-16 10:51 | Outpatient (CLI) | payer OTHER, SELFPAY ==
--- NOTE | ~2021-09-16 | MM_ITS ---
EXAMINATION: MM screening valerio BI w emilie HISTORY: Screening mammogram TECHNIQUE: Craniocaudal and mediolateral oblique 3-D tomosynthesis images were obtained and synthetic 2-D images were generated. CAD analysis was submitted and interpreted. COMPARISON: No prior mammogram is available for comparison at this institution. BREAST PARENCHYMAL COMPOSITION: There are scattered areas of fibroglandular density. FINDINGS: There is no evidence of suspicious mass, calcification, or architectural distortion to sugg est malignancy in either breast. There has been no suspicious interval change. IMPRESSION: 1. No mammographic evidence of malignancy. 2. Recommend routine screening mammography in one year. BI-RADS Category 1: Negative Reviewed, dictated and finalized at location A.
--- NOTE | ~2021-09-16 | US_ITS ---
US axilla RT DATE: 09/16/2021 11:17 INDICATION: Right axillary mass for years TECHNIQUE: Real-time imaging and color flow imaging of the right axillary soft tissues COMPARISON: None FINDINGS: There is a circumscribed parallel sonolucency measuring 3 x 12 x 5.3 mm, without internal v ascularity or posterior shadowing, benign in appearance. Approximately 7.8 x 29 x 12 mm benign-appearing right axillary lymph node is identified. No suspicious mass or shadowing is detected. IMPRESSION: BI-RADS Category 2: Benign Recommendation: Routine mammographic screening Reviewed, dictated and finalized at Location A. Reviewed, dictated and finalized at location A.
[2021-09-16 14:08] LABS: Basophils Absolute Auto 0.1 K/mm3 (0.0-0.1); Basophils Percent Auto 0.6 % (0.2-1.2); Eosinophils Absolute Auto 0.5 K/mm3 (0-0.3); Eosinophils Percent Auto 5.1 % (0-4.4); Hematocrit 39.1 % (37.0-47.0); Hemoglobin 13.4 g/dL (12.0-15.0); Immature Granulocyte Absolute 0.05 K/mm3 (0.00-0.031); Immature Granulocyte Percent A 0.5 % (0-0.5); Lymphocytes Absolute Auto 3.91 K/mm3 (0.9-3.2); Lymphocytes Percent Auto 38.3 % (18.3-44.2); Mean Corpuscular HGB Conc 34.3 g/dl (32-36); Mean Corpuscular Hemoglobin 31.3 pg (26-34); Mean Corpuscular Volume 91.4 fl (80-100); Mean Platelet Volume 10.2 fl (7.4-10.4); Monocytes Absolute Auto 0.8 K/mm3 (0.1-0.6); Monocytes Percent Auto 8.1 % (2.6-8.5); Neutrophils Absolute Auto 4.8 K/mm3 (1.3-6.7); Neutrophils Percent Auto 47.4 % (45.5-73.1); Platelet Count Result 299 k/mm3 (150-375); Red Blood Count 4.28 M/mm3 (4.2-5.4); White Blood Count 10.2 K/mm3 (4.5-10.0)
[2021-09-16 14:34] LABS: Alanine Aminotransferase 79 U/L (6-35); Albumin Level 4.2 g/dL (3.5-5.1); Alkaline Phosphatase 97 U/L (38-126); Anion Gap 5 mmol/L (8-16); Aspartate Amino Transferase 59 U/L (14-36); Bilirubin,Total 0.5 mg/dL (0.2-1.3); Blood Urea Nitrogen 12 mg/dL (7-17); CRP 0.7 mg/dL (<1.0); Carbon Dioxide 27 mmol/L (22-30); Chloride 108 mmol/L (98-107); Estimated Glomerular Filt Rate > 60; Glucose 96 mg/dL (65-110); Sodium 140 mmol/L (137-145)
[2021-09-16 15:04] LABS: Erythrocyte Sedimentation Rate 12 mm/hr (0-20)
[2021-09-24 20:20] LABS: HSV 1 IgM Screen Negative (Negative); HSV 2 IgM Screen Negative (Negative)
== END 2021-09-16 10:52 | disposition home or self-care (01) ==
PROVIDERS: PCP Emergency Medicine; Referring Provider Internal Medicine Hematology & Oncology; Visit Provider Emergency Medicine
DX: B00.9 Herpesviral infection, unspecified (principal); B00.1 Herpesviral vesicular dermatitis; Z12.31 Encounter for screening mammogram for malignant neoplasm of breast; D72.829 Elevated white blood cell count, unspecified
CPT/HCPCS: 36415; 76882; 77063; 77067; 80053; 85025; 85652; 86140; 86695; 86696

== ENCOUNTER 2021-10-12 07:29 | Outpatient (CLI) | payer OTHER, SELFPAY ==
--- NOTE | ~2021-10-12 | NM_ITS ---
EXAMINATION: NM hepatobiliary w pharm DATE: 10/12/2021 09:26 INDICATION: Gallbladder disease. COMPARISON: CT abdomen and pelvis 01/14/2021 TECHNIQUE: 5 mCi Tc-99m mebrofenin (Choletec) was administered intravenously. Scintigraphic images o f the abdomen were obtained for one hour. Then, 1.5 mcg sincalide (Kinevac) IV was administered, and imaging was continued for 30 minutes. FINDINGS: There is normal clearance of radiotracer from the blood pool. There is homogeneous tracer u ptake by the liver. Activity progresses to the bowel and gallbladder. Gallbladder ejection fraction (GBEF) was 83%. Note that most patients with gallbladder dysfunction have GBEF < 35%, which overlaps with the broad normal range of 10-90%. IMPRESSION: 1. Normal hepatobiliary scintigraphy. Reviewed, dictated and finalized at location A.
== END 2021-10-12 07:30 | disposition home or self-care (01) ==
PROVIDERS: PCP Emergency Medicine; Visit Provider Surgery
DX: R10.11 Right upper quadrant pain (principal)
CPT/HCPCS: 78227; A9537; J2805

== ENCOUNTER 2021-11-21 08:04 | Emergency (ER) | payer OTHER, SELFPAY ==
[2021-11-21 08:17] VITALS: BP 110/82; PULSE 96; RESP 16; TEMP 37.1; O2SAT 98
--- NOTE | 2021-11-21 08:36 | ED.URI ---
HPI - URI/Sore Throat General Chief Complaint: Upper Respiratory Infection Stated Complaint: uri Time Seen by Provider: 11/21/21 08:30 History of Present Illness HPI Narrative: Deirdre Barrios is a 41 yo female with a PMH of substance abuse who comes long-term effects of COVID. She has had COVID for 10 days and still feels fatigued has congestion and cough. She also abuses tobacco and discussed stopping smoking. Related Data Home Medications Medication Instructions Recorded Confirmed methadone 40 mg soluble tablet 44 mg PO DAILY 10/02/21 11/21/21 Allergies Allergy/AdvReac Type Severity Reaction Status Date / Time Sulfa (Sulfonamide Allergy Unknown RASH, Verified 11/21/21 08:10 Antibiotics) VOMITING Review of Systems Review of Systems: CONSTITUTIONAL: Denies fever, chills, sweats. EYES: Denies visual changes, redness, discharge. ENT: Denies rhinorrhea, has congestion, sore throat, otalgia. CARDIOVASCULAR: Denies chest pain, palpitations, edema. RESPIRATORY: Denies dyspnea, wheezing, has cough GASTROINTESTINAL: Denies abdominal pain, nausea, vomiting, diarrhea. GENITOURINARY: Denies dysuria, hematuria, abnormal discharge SKIN: Denies rash or itching. NEUROLOGIC: Denies numbness, or focal weakness. PSYCHIATRIC: Denies anxiety or depression. [facility] Past Medical History Medical History Anxiety Depression Frequent UTI Herpes simplex 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 Neuropathy Opioid use Vicodin Opioid use Vicodin Opioid use Vicodin Substance abuse On methadone Toenail fungus Surgical History Surgical History H/O: hysterectomy Hx of tonsillectomy Family History Family History Other No significant family history Social History Social History Smoking packs per day: 1 Smoking cigarettes per day: 20.0 Years smoked: 20 Smoking pack-years: 20.00 Smoking status: Current every day smoker Second hand tobacco smoke exposure: Yes Alcohol intake: never Substance use: former Substance use type: painkillers Other substance usage details: Deirdre denies using recreational drugs at this time Gender identity (if verbalized by the patient): Female Comments At time of signature, I agree with nursing past medical, surgical, social and family history. There is no relevant family history pertinent to the presenting complaint. Exam Narrative: GENERAL: This is a well-nourished, well-developed patient, in mild distress. HEAD: normocephalic, atraumatic. EYES: Sclera clear/white. Vision is grossly intact. EARS: External ears normal, . Hearing grossly intact. NOSE: External nose normal with congestion, nares without redness, no rhinorrhea. THROAT: Mucous membranes moist, NECK: Neck supple, non-tender CARDIOVASCULAR: Regular rate and rhythm without murmurs, gallops, or rubs. RESPIRATORY: Clear to auscultation. Breath sounds equal bilaterally. No wheezes, rales, or rhonchi. GASTROINTESTINAL: Abdomen soft, non-tender, SKIN: warm, intact with no suspicious lesions or rash, good texture and turgor. NEURO: awake, alert, and oriented to person, place and time. There were no obvious focal neurologic abnormalities. Steady gait EXTREMITIES: Normal range of motion. BACK: Nontender without deformity Course Course Emergency Course: Patient had COVID 10 days ago-still has congestion and cough Started on Flonase and Tessalon Perles and given work excuse for the weekend Level of Care: Express Care Visit Vital Signs Vital signs: Vital Signs Temperature 98.7 F 11/21/21 08:17 Pulse Rate 96 11/21/21 08:17 Respiratory Rate 16 11/21/21 08:17 Blood Pressure 110/82 11/21/21 08:17 Pulse Oximetry 98 11/21/21 08:17 Oxygen Delivery Room
== END 2021-11-21 08:50 | disposition home or self-care (01) ==
PROVIDERS: Emergency Provider Nurse Practitioner; PCP Emergency Medicine
DX: R05.9 Cough, unspecified (principal); U09.9 Post COVID-19 condition, unspecified; F17.210 Nicotine dependence, cigarettes, uncomplicated
CPT/HCPCS: 99213; G0463

== ENCOUNTER 2021-12-10 12:00 | Outpatient (CLI) | payer OTHER, SELFPAY ==
--- NOTE | ~2021-12-10 | XR_ITS ---
EXAMINATION: XR chest 2V DATE: 12/10/2021 12:22 INDICATION: Cough and shortness of breath TECHNIQUE: PA and lateral views of the chest are obtained. COMPARISON: 06/17/2021 FINDINGS: The lungs are free of acute opacities. No pleural effusion or pneumothorax. The cardiomedia stinal silhouette is normal. There is mild thoracic spondylosis. IMPRESSION: 1. No acute cardiopulmonary abnormality. Reviewed, dictated and finalized at location B.
[2021-12-10 12:37] LABS: Hematocrit 39.7 % (37.0-47.0); Hemoglobin 13.3 g/dL (12.0-15.0); Mean Corpuscular HGB Conc 33.5 g/dl (32-36); Mean Corpuscular Hemoglobin 30.9 pg (26-34); Mean Corpuscular Volume 92.1 fl (80-100); Mean Platelet Volume 9.5 fl (7.4-10.4); Platelet Count Result 351 k/mm3 (150-375); Red Blood Count 4.31 M/mm3 (4.2-5.4); Red Cell Distribution Width 13.7 % (11.5-14.5); White Blood Count 17.5 K/mm3 (4.5-10.0)
[2021-12-10 12:39] LABS: Appearance Urine Clear (Clear); Bilirubin Urine Negative (Negative); Blood Urine Negative (Negative); Color Urine Yellow (Yellow); Glucose Urine UA Negative (Negative); Ketones Urine Negative (Negative); Leukocyte Esterase Ur Negative LEU/UL (NEGATIVE); Nitrate Urine Negative (Negative); Protein Urine Negative (Negative); Specific Grav Ur 1.015 (1.001-1.035); Urobilinogen Urine 0.2 mg/dL (<2.0)
[2021-12-10 12:44] LABS: Add Urine Microscopic? NO
[2021-12-10 13:02] LABS: Alanine Aminotransferase 50 U/L (6-35); Albumin Level 4.6 g/dL (3.5-5.1); Alkaline Phosphatase 112 U/L (38-126); Anion Gap 15 mmol/L (8-16); Aspartate Amino Transferase 29 U/L (14-36); Bilirubin,Total 0.4 mg/dL (0.2-1.3); Blood Urea Nitrogen 17 mg/dL (7-17); Carbon Dioxide 24 mmol/L (22-30); Chloride 102 mmol/L (98-107); Estimated Glomerular Filt Rate > 60; Glucose 94 mg/dL (65-110); Potassium 3.8 mmol/L (3.4-5.0); Sodium 141 mmol/L (137-145)
== END 2021-12-10 12:01 | disposition home or self-care (01) ==
PROVIDERS: PCP Emergency Medicine; Visit Provider Emergency Medicine
DX: J40 Bronchitis, not specified as acute or chronic (principal); R06.02 Shortness of breath; R05.9 Cough, unspecified; R06.2 Wheezing; J01.90 Acute sinusitis, unspecified; R30.0 Dysuria
CPT/HCPCS: 36415; 71046; 80053; 81003; 85027; 87086

== ENCOUNTER 2021-12-30 09:24 | Outpatient (CLI) | payer OTHER, SELFPAY ==
[2021-12-30 10:05] LABS: Basophils Percent Auto 0.4 % (0.2-1.2); Eosinophils Absolute Auto 0.3 K/mm3 (0-0.3); Hemoglobin 13.2 g/dL (12.0-15.0); Immature Granulocyte Absolute 0.02 K/mm3 (0.00-0.031); Immature Granulocyte Percent A 0.2 % (0-0.5); Lymphocytes Percent Auto 43.4 % (18.3-44.2); Mean Corpuscular Hemoglobin 30.3 pg (26-34); Mean Platelet Volume 9.5 fl (7.4-10.4); Monocytes Absolute Auto 0.8 K/mm3 (0.1-0.6); Monocytes Percent Auto 9.4 % (2.6-8.5); Neutrophils Absolute Auto 3.5 K/mm3 (1.3-6.7); Neutrophils Percent Auto 42.6 % (45.5-73.1); Platelet Count Result 281 k/mm3 (150-375); Red Blood Count 4.35 M/mm3 (4.2-5.4); White Blood Count 8.3 K/mm3 (4.5-10.0)
[2021-12-30 11:56] LABS: Erythrocyte Sedimentation Rate 17 mm/hr (0-20)
[2021-12-30 13:38] LABS: Alanine Aminotransferase 70 U/L (6-35); Albumin Level 4.4 g/dL (3.5-5.1); Alkaline Phosphatase 112 U/L (38-126); Anion Gap 12 mmol/L (8-16); Aspartate Amino Transferase 38 U/L (14-36); Bilirubin,Total 0.8 mg/dL (0.2-1.3); Blood Urea Nitrogen 16 mg/dL (7-17); CRP 0.9 mg/dL (<1.0); Calcium 9.1 mg/dL (8.4-10.2); Carbon Dioxide 28 mmol/L (22-30); Chloride 102 mmol/L (98-107); Estimated Glomerular Filt Rate > 60; Glucose 100 mg/dL (65-110); Potassium 3.9 mmol/L (3.4-5.0); Sodium 142 mmol/L (137-145)
== END 2021-12-30 09:25 | disposition home or self-care (01) ==
LOC: ANHLAB 09:26
PROVIDERS: PCP Surgery; Visit Provider Internal Medicine Hematology & Oncology
DX: D72.829 Elevated white blood cell count, unspecified (principal)
CPT/HCPCS: 36415; 80053; 85025; 85652; 86140; 88184

== ENCOUNTER 2022-03-07 11:06 | Emergency (ER) | payer OTHER, SELFPAY ==
[2022-03-07 11:59] VITALS: BP 120/74; PULSE 61; RESP 18; TEMP 36.8; O2SAT 100
--- NOTE | 2022-03-07 12:58 | ED.URI ---
HPI - URI/Sore Throat General Chief Complaint: Upper Respiratory Infection Stated Complaint: Headache, Sinus, Chest Pain Time Seen by Provider: 03/07/22 12:58 Source: patient Mode of arrival: ambulatory Limitations: no limitations History of Present Illness HPI Narrative: 41-year-old female presents with complaint of nasal congestion, sinus pressure, pain to bilateral ears, cough for 4 days. Afebrile. Taking ibuprofen to treat pain. Not taking any medications to treat sinus congestion. Denies nausea vomiting diarrhea. No chest pain or shortness of breath. All systems reviewed and negative except as noted above. Related Data Home Medications Medication Instructions Recorded Confirmed mirtazapine 15 mg tablet mg 03/07/22 sertraline 100 mg tablet mg 03/07/22 Allergies Allergy/AdvReac Type Severity Reaction Status Date / Time Sulfa (Sulfonamide Allergy Unknown RASH, Verified 03/07/22 11:46 Antibiotics) VOMITING Review of Systems Review of Systems: CONSTITUTIONAL: Denies fever, chills, or sweats. Reports fatigue. EYES: Denies visual changes, redness, or discharge. ENT: Reports rhinorrhea, congestion, sore throat, sinus congestion and otalgia. CARDIOVASCULAR: Denies chest pain, palpitations, or edema. RESPIRATORY: reports cough. Denies dyspnea. GASTROINTESTINAL: Denies abdominal pain, nausea, vomiting, or diarrhea. GENITOURINARY: Denies dysuria or hematuria. SKIN: Denies rash or itching. MUSCULOSKELETAL: Denies back pain, joint pain, or myalgia. NEUROLOGIC: Denies headache, numbness, or weakness. PSYCHIATRIC: Denies anxiety or depression. All other systems reviewed are negative, except as documented in HPI. 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 Neuropathy Opioid use Vicodin Opioid use Vicodin Opioid use Vicodin Substance abuse On methadone Toenail fungus Surgical History Surgical History H/O: hysterectomy Hx of tonsillectomy Family History Family History Other No significant family history Social History Social History Smoking packs per day: 1 Smoking cigarettes per day: 20.0 Years smoked: 20 Smoking pack-years: 20.00 Smoking status: Current every day smoker Second hand tobacco smoke exposure: Yes Alcohol intake: never Substance use: former Substance use type: painkillers Other substance usage details: Deirdre denies using recreational drugs at this time Gender identity (if verbalized by the patient): Female Comments At time of signature, agree with nursing past medical, surgical, social and family history. There is no relevant family history pertinent to the presenting complaint. Exam Narrative: GENERAL: This is a well-nourished, well-developed patient, in no apparent distress. HEAD: normocephalic, atraumatic. EYES: PERRL. Sclera clear/white. Vision is grossly intact. EARS: External ears normal, auditory canals clear and without drainage, fluid to bilateral TMs with erythema. Left TM is retracted, bubbling. NOSE: External nose normal with Clear nasal drainage, erythema and swelling to both nares. THROAT: Mucous membranes moist, Erythema with postnasal drainage. NECK: Neck supple, non-tender without lymphadenopathy, masses or thyromegaly. CARDIOVASCULAR: Regular rate and rhythm without murmurs, gallops, or rubs. RESPIRATORY: Clear to auscultation. Breath sounds equal bilaterally. No wheezes, rales, or rhonchi. SKIN: warm, Dry, intact with no suspicious lesions or rash, good texture and turgor. NEURO: awake, alert, and oriented to person, place and time. There were no obvious focal neurologic abnormalities. E
== END 2022-03-07 13:40 | disposition home or self-care (01) ==
PROVIDERS: Emergency Provider Nurse Practitioner Family; PCP Surgery
DX: J01.90 Acute sinusitis, unspecified (principal); H65.03 Acute serous otitis media, bilateral; Z20.822 Contact with and (suspected) exposure to COVID-19; F17.210 Nicotine dependence, cigarettes, uncomplicated; F41.9 Anxiety disorder, unspecified; F32.A Depression, unspecified
CPT/HCPCS: 87426; 87804; 99213; C9803; G0463

== ENCOUNTER 2022-05-18 12:26 | Outpatient (CLI) | payer OTHER, SELFPAY ==
[2022-05-18 13:03] LABS: Hematocrit 41.5 % (37.0-47.0); Hemoglobin 14.2 g/dL (12.0-15.0); Mean Corpuscular HGB Conc 34.2 g/dl (32-36); Mean Corpuscular Hemoglobin 30.7 pg (26-34); Mean Corpuscular Volume 89.8 fl (80-100); Mean Platelet Volume 9.8 fl (7.4-10.4); Platelet Count Result 302 k/mm3 (150-375); Red Blood Count 4.62 M/mm3 (4.2-5.4); Red Cell Distribution Width 12.9 % (11.5-14.5); White Blood Count 10.2 K/mm3 (4.5-10.0)
[2022-05-18 13:21] LABS: Add Urine Microscopic? NO; Appearance Urine Clear (Clear); Bilirubin Urine Negative (Negative); Blood Urine Negative (Negative); Color Urine Yellow (Yellow); Glucose Urine UA Negative (Negative); Ketones Urine Negative (Negative); Leukocyte Esterase Ur Negative LEU/UL (NEGATIVE); Nitrate Urine Negative (Negative); Protein Urine Negative (Negative); Specific Grav Ur 1.025 (1.001-1.035); Urobilinogen Urine 0.2 mg/dL (<2.0)
[2022-05-18 13:22] LABS: Alanine Aminotransferase 54 U/L (6-35); Albumin Level 4.3 g/dL (3.5-5.1); Alkaline Phosphatase 105 U/L (38-126); Amylase 76 U/L (30-110); Anion Gap 3 mmol/L (8-16); Aspartate Amino Transferase 44 U/L (14-36); Bilirubin,Total 0.4 mg/dL (0.2-1.3); Blood Urea Nitrogen 14 mg/dL (7-17); Calcium 8.8 mg/dL (8.4-10.2); Carbon Dioxide 31 mmol/L (22-30); Chloride 105 mmol/L (98-107); Cholesterol 130 mg/dL (0-200); Estimated Glomerular Filt Rate > 60; Glucose 86 mg/dL (65-110); HDL Direct 26 mg/dL; Lipase 103 U/L (23-300); Potassium 4.3 mmol/L (3.4-5.0); Sodium 139 mmol/L (137-145); Triglycerides 160 mg/dL (<150)
[2022-05-18 13:33] LABS: LDL Cholesterol Direct 77 mg/dL
[2022-05-18 13:38] LABS: Creatinine Urine 98.9 mg/dL
[2022-05-18 13:39] LABS: Influenza A QL RT-PCR Negative (Negative); Influenza B QL RT-PCR Negative (Negative); SARS-CoV-2 RNA PCR Negative
[2022-05-18 13:45] LABS: Free T4 Free Thyroxine 1.06 ng/mL (0.78-2.19)
[2022-05-18 13:49] LABS: MALB Creatinine Ratio < 6.1 mg/g (0-30); Microalbumin Urine Random < 6.0 mg/L (0-16.7)
== END 2022-05-18 12:27 | disposition home or self-care (01) ==
PROVIDERS: Visit Provider Emergency Medicine
DX: D72.829 Elevated white blood cell count, unspecified (principal); R11.2 Nausea with vomiting, unspecified; R19.7 Diarrhea, unspecified
CPT/HCPCS: 36415; 80053; 80061; 81003; 82043; 82150; 83036; 83690; 84439; 84443; 85027; 87086; 87088; 87636

== ENCOUNTER 2022-06-13 13:50 | Emergency (ER) | payer OTHER, SELFPAY ==
[2022-06-13] VITALS (20 sets, daily range): BP systolic 114–138; BP diastolic 70–94; PULSE 66–78; RESP 15–18; TEMP 36.4–36.7; O2SAT 95–98
--- NOTE | ~2022-06-13 | CT_ITS ---
EXAMINATION: CT abdomen pelvis w con DATE: 06/13/2022 15:26 INDICATION: Abdominal pain with vomiting TECHNIQUE: Computed tomography (CT) of the abdomen and pelvis was performed with 100 mL Omnipaque-350 intravenous contrast. Automated exposure control and iterative reconstruction technique were employe d. The dose-length product was 465.27 mGy-cm. COMPARISON: 01/14/2021. FINDINGS: Lower thorax: Unremarkable Liver: Enlarged. Diffuse fatty infiltration. Biliary/Gallbladder: Gallbladder is normal. Prominent common bile duct measuring 7 mm. Pancreas: Pancreatic atrophy. Spleen: Normal. Adrenals:No mass. Kidneys: Punctate right lower pole calcification. No mass, obstructing stone, or hydronephrosis. GI tract: Small hiatal hernia. Distal esophageal and gastric wall edema, moderate in the gastric antr um. No small or large bowel dilation. Normal appendix. Mesentery/Peritoneum: No ascites, mass, or free air. Retroperitoneum: No mass. Atherosclerotic abdominal aortic and/or arterial calcifications. Pelvis: Absent uterus. Partially filled urinary bladder. Soft Tissues: Small uncomplicated fat-containing umbilical hernia. Bones: No acute osseous finding. IMPRESSION: Hepatomegaly with steatosis. Esophagitis with gastritis, moderate in the gastric antrum. Mildly promi nent common bile duct, without visible stone or mass, correlate with symptoms of right upper quadrant pain and biliary laboratory abnormalities. Normal-appearing gallbladder. Reviewed, dictated and finalized at location K. IMPRESSION: Hepatomegaly with steatosis. Esophagitis with gastritis, moderate in the gastri c antrum. Mildly prominent common bile duct, without visible stone or mass, cor relate with symptoms of right upper quadrant pain and biliary laboratory abnorm alities. Normal-appearing gallbladder.
[2022-06-13 14:14] LABS: Appearance Urine Clear (Clear); Bilirubin Urine Negative (Negative); Blood Urine Negative (Negative); Color Urine Yellow (Yellow); Glucose Urine UA Negative (Negative); Ketones Urine Negative (Negative); Leukocyte Esterase Ur Negative LEU/UL (Negative); Nitrate Urine Negative (Negative); Protein Urine Negative (Negative); Specific Grav Ur 1.021 (1.001-1.035); Urobilinogen Urine 0.2 mg/dL (<2.0); pH Urine 5.5 (5.0-9.0)
[2022-06-13 14:21] LABS: Add Urine Microscopic? NO
[2022-06-13 14:29] LABS: Basophils Absolute Auto 0.1 K/mm3 (0.0-0.1); Basophils Percent Auto 0.5 % (0.2-1.2); Eosinophils Absolute Auto 0.4 K/mm3 (0-0.3); Eosinophils Percent Auto 3.2 % (0-4.4); Hematocrit 41.6 % (37.0-47.0); Hemoglobin 14.3 g/dL (12.0-15.0); Immature Granulocyte Absolute 0.05 K/mm3 (0.00-0.031); Immature Granulocyte Percent A 0.4 % (0-0.5); Lymphocytes Absolute Auto 5.29 K/mm3 (0.9-3.2); Lymphocytes Percent Auto 41.4 % (18.3-44.2); Mean Corpuscular HGB Conc 34.4 g/dl (32-36); Mean Corpuscular Hemoglobin 30.3 pg (26-34); Mean Corpuscular Volume 88.1 fl (80-100); Mean Platelet Volume 9.4 fl (7.4-10.4); Monocytes Absolute Auto 0.8 K/mm3 (0.1-0.6); Neutrophils Absolute Auto 6.2 K/mm3 (1.3-6.7); Neutrophils Percent Auto 48.5 % (45.5-73.1); Platelet Count Result 329 k/mm3 (150-375); Red Blood Count 4.72 M/mm3 (4.2-5.4); White Blood Count 12.8 K/mm3 (4.5-10.0)
[2022-06-13] MEDS: ONDANSETRON INJ 4 MG/2 ML VIAL IV PUSH (14:29)
--- NOTE | 2022-06-13 14:33 | ED.NAVMDI ---
HPI - Nausea/Vomiting/Diarrhea General Chief complaint: Nausea/Vomiting/Diarrhea Stated complaint: vomiting Time Seen by Provider: 06/13/22 14:03 Source: patient and family Mode of arrival: ambulatory Limitations: no limitations History of Present Illness HPI Narrative: 42 years old white female presents with intermittent nausea and vomiting 2-4 time every 4 to 5 days, for the last 4 weeks. Intermittent right abdominal pain which lasts for few hours up to 1 day. Patient denies any aggravating or relieving factors. 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[facility] [place] history of anxiety and depression Related Data Home Medications Medication Instructions Recorded Confirmed mirtazapine 15 mg tablet mg 03/07/22 sertraline 100 mg tablet mg 03/07/22 Allergies Allergy/AdvReac Type Severity Reaction Status Date / Time Sulfa (Sulfonamide Allergy Unknown RASH, Verified 03/07/22 11:46 Antibiotics) VOMITING Review of Systems Review of Systems: All systems reviewed & are unremarkable except as noted in HPI and below PMFSH Past Medical History Medical History Anxiety Depression Frequent UTI Herpes simplex 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 Neuropathy Opioid use Vicodin Opioid use Vicodin Opioid use Vicodin Substance abuse On methadone Toenail fungus Surgical History Surgical History H/O: hysterectomy Hx of tonsillectomy Family History Family History Other No significant family history Social History Social History Smoking packs per day: 1 Smoking cigarettes per day: 20.0 Years smoked: 20 Smoking pack-years: 20.00 Smoking status: Current every day smoker Second hand tobacco smoke exposure: Yes Alcohol intake: never Substance use: former Substance use type: painkillers Other substance usage details: Deirdre denies using recreational drugs at this time Living arrangements: with family Occupation/Education: occupation Gender identity (if verbalized by the patient): Female Exam Narrative: General appearance: Well-developed, well-nourished Skin: Normal color Head: Normocephalic, nontraumatic Eyes: Clear conjunctiva ENT: Oropharynx normal, ears normal, nose normal Neck: Supple, nontender Chest and respiratory: Airway patent, no respiratory distress, no accessory muscle use Heart: Regular rate/rhythm Abdomen: Soft, nontender, no organomegaly, quiet bowel sounds Vascular: Normal peripheral pulses, normal capillary refill. Musculoskeletal: Normal range of motion, nontender back Neurologic: Alert and oriented ?3, PRODUCT SUPPORT ANALYST is normal as tested, no gross motor deficit Course Reevaluation(s) Reevaluation #1: Patient feeling much better, currently is asymptomatic and ready to go home. Date: 06/13/22 Time: 16:33 Vital Signs Vital signs: Vital Signs Temperature 36.7 C 06/13/22 13:53 Pulse Rate 71 06/13/22 13:53 Respiratory Rate 16 06/13/22 13:53 Blood Pressure 132/89 06/13/22 13:53 Pulse Oximetry 97 06/13/22 13:53 Temperature 36.7 C 06/13/22 13:53 Pulse Rate 78 06/13/22 14:05 Respiratory Rate 18 06/13/22 14:05 Blood Pressure 138/79 06/13/22 14:05 Pulse Oximetry 98 06/13/22 14:05 Oxygen Delivery Room Air 06/13/22 14:05 MDM - Nausea/Vomiting/Diarrhea MDM Narrative Medical decision making narrative: Patient presents with intermittent nausea and vomiting last for 1 to 2 days then gets better and come back again intermittently ever
[2022-06-13 14:40] LABS: Alanine Aminotransferase 55 U/L (6-35); Albumin Level 4.8 g/dL (3.5-5.1); Alkaline Phosphatase 109 U/L (38-126); Anion Gap 6 mmol/L (8-16); Aspartate Amino Transferase 38 U/L (14-36); Bilirubin,Total 0.6 mg/dL (0.2-1.3); Blood Urea Nitrogen 14 mg/dL (7-17); Calcium 10.3 mg/dL (8.4-10.2); Carbon Dioxide 29 mmol/L (22-30); Chloride 105 mmol/L (98-107); Estimated CRCL calculation 98 ml/min; Estimated Glomerular Filt Rate > 60; Glucose 107 mg/dL (65-110); Lipase 47 U/L (23-300); Potassium 4.3 mmol/L (3.4-5.0); Sodium 140 mmol/L (137-145)
== END 2022-06-13 16:43 | disposition home or self-care (01) ==
PROVIDERS: Emergency Provider Emergency Medicine
DX: K20.90 Esophagitis, unspecified without bleeding (principal); K29.70 Gastritis, unspecified, without bleeding; F17.210 Nicotine dependence, cigarettes, uncomplicated; F41.9 Anxiety disorder, unspecified; F32.A Depression, unspecified
CPT/HCPCS: 36415; 74177; 80053; 81003; 81025; 83690; 85025; 96374; 99284; J2405; Q9967

== ENCOUNTER 2022-06-22 10:56 | Emergency (ER) | payer OTHER, SELFPAY | END 2022-06-22 11:00 | disposition left against medical advice (07) | LOC: ANHED 11:13 | PROVIDERS: PCP Internal Medicine | DX: Z53.21 Procedure and treatment not carried out due to patient leaving prior to being seen by health care provider (principal) | CPT/HCPCS: 99199 ==

== ENCOUNTER 2022-06-22 14:29 | Emergency (ER) | payer OTHER, SELFPAY ==
[2022-06-22] VITALS (8 sets, daily range): BP systolic 109–122; BP diastolic 69–86; PULSE 54–73; RESP 12–22; TEMP 36.3–36.6; O2SAT 97–99
--- NOTE | ~2022-06-22 | US_ITS ---
EXAMINATION: US abdomen limited DATE: 06/22/2022 19:35 INDICATION: Right upper quadrant pain TECHNIQUE: Multiple grayscale and Doppler ultrasound images of the abdomen were obtained. COMPARISON: None available FINDINGS: The head and body of the pancreas are normal. The pancreatic tail is obscured by bowel gas. The liver demonstrates increased echogenicity, heterogenous echotexture, and decreased through trans mission. No surface nodularity. Normal hepatopetal flow in the main portal vein. The gallbladder is n ormal with no abnormal wall thickening, pericholecystic fluid or stones. The normal common bile duct measures 5 mm. Sonographic Negro sign is positive. IMPRESSION: 1. Positive sonographic Negro sign without additional findings. 2. Diffuse hepatic steatosis. Reviewed, dictated and finalized at location F.
--- NOTE | ~2022-06-22 | CT_ITS ---
EXAMINATION: CT abdomen pelvis w con INDICATION: Right lower quadrant pain TECHNIQUE: Computed tomographic images of the abdomen and pelvis were obtained after the administrati on of 100 cc of Omnipaque 350 intravenous contrast. The dose-length product (DLP) was 442.58 mGy-cm. Automated exposure control and iterative reconstruction technique were employed. COMPARISON: 06/13/2022 FINDINGS: The lung bases are clear. The heart size is normal. The liver is diffusely low in attenuati on when compared with the spleen, consistent with hepatic steatosis. The spleen, pancreas, gallbladde r, and adrenal glands are normal. The kidneys are unremarkable. No pathologically enlarged abdominal or pelvic lymph nodes are identified. No free intraperitoneal gas or evidence of bowel obstruction. A large volume of colonic stool is present. The appendix is normal. IMPRESSION: 1. No CT correlate for the patient's symptoms. 2. Diffuse hepatic steatosis. Reviewed, dictated and finalized at location F.
[2022-06-22 15:03] LABS: Appearance Urine Clear (Clear); Bacteria Urine None Seen /hpf; Bilirubin Urine Negative (Negative); Blood Urine Negative (Negative); Color Urine Yellow (Yellow); Glucose Urine UA Negative (Negative); Ketones Urine Trace mg/dL (Negative); Leukocyte Esterase Ur Trace LEU/UL (Negative); Nitrate Urine Negative (Negative); Non Pathogenic Casts 0-2; Protein Urine Negative (Negative); RBC Urine 0-2 /hpf (0-2); Squamous Epithelial Cell Urine Occasional /hpf (Few); WBC Urine 0-5 /hpf
[2022-06-22 15:09] LABS: Add Urine Microscopic? YES; Alanine Aminotransferase 53 U/L (6-35); Albumin Level 4.2 g/dL (3.5-5.1); Alkaline Phosphatase 140 U/L (38-126); Anion Gap 5 mmol/L (8-16); Aspartate Amino Transferase 39 U/L (14-36); Bilirubin,Total 0.6 mg/dL (0.2-1.3); Blood Urea Nitrogen 12 mg/dL (7-17); Calcium 9.4 mg/dL (8.4-10.2); Carbon Dioxide 32 mmol/L (22-30); Chloride 103 mmol/L (98-107); Estimated CRCL calculation 96 ml/min; Estimated Glomerular Filt Rate > 60; Glucose 120 mg/dL (65-110); Lipase 34 U/L (23-300); Potassium 3.9 mmol/L (3.4-5.0); Sodium 140 mmol/L (137-145)
[2022-06-22 15:15] LABS: Basophils Absolute Auto 0.1 K/mm3 (0.0-0.1); Basophils Percent Auto 0.3 % (0.2-1.2); Eosinophils Absolute Auto 0.4 K/mm3 (0-0.3); Hematocrit 39.2 % (37.0-47.0); Hemoglobin 13.1 g/dL (12.0-15.0); Immature Granulocyte Absolute 0.13 K/mm3 (0.00-0.031); Immature Granulocyte Percent A 0.7 % (0-0.5); Lymphocytes Absolute Auto 3.31 K/mm3 (0.9-3.2); Lymphocytes Percent Auto 18.5 % (18.3-44.2); Mean Corpuscular HGB Conc 33.4 g/dl (32-36); Mean Corpuscular Hemoglobin 30.8 pg (26-34); Mean Platelet Volume 10.1 fl (7.4-10.4); Monocytes Absolute Auto 1.7 K/mm3 (0.1-0.6); Monocytes Percent Auto 9.4 % (2.6-8.5); Neutrophils Absolute Auto 12.4 K/mm3 (1.3-6.7); Neutrophils Percent Auto 69.1 % (45.5-73.1); Platelet Count Result 284 k/mm3 (150-375); Red Blood Count 4.26 M/mm3 (4.2-5.4); White Blood Count 17.9 K/mm3 (4.5-10.0)
--- NOTE | 2022-06-22 17:37 | ED.ABDPAIN ---
HPI - Abdominal Pain General Chief Complaint: Abdominal Pain Stated Complaint: abd pain (seen earlier today) Time Seen by Provider: 06/22/22 17:30 History of Present Illness HPI narrative: Patient is a 42-year-old female here for evaluation of right upper quadrant abdominal pain, nausea, vomiting for the past week. Patient was seen here upon symptom onset, had a reassuring work-up including a CT of her abdomen and pelvis, was diagnosed with esophagitis and was sent home with antacids. Patient states that her symptoms improved for a day or two but slowly returned, over the past several days she has been unable to tolerate any p.o. and has had numerous episodes of vomiting nonbloody/nonbilious emesis. She states that her pain has intensified in her right upper quadrant and is now also in her back. Denies any fevers, chills, diarrhea, constipation, dysuria, urgency or frequency. Denies any surgical history. Related Data Home Medications Medication Instructions Recorded Confirmed mirtazapine 15 mg tablet mg 03/07/22 sertraline 100 mg tablet mg 03/07/22 Allergies Allergy/AdvReac Type Severity Reaction Status Date / Time Sulfa (Sulfonamide Allergy Unknown RASH, Verified 06/22/22 18:13 Antibiotics) VOMITING Review of Systems Review of Systems: Gen.: Denies fevers or chills Eyes: Denies eye pain or visual change ENT: Denies congestion Respiratory: Denies shortness of breath or cough CV: Denies chest pain or palpitations G reports abdominal pain, nausea, vomiting denies burning, urgency, frequency or hematuria Musculoskeletal: Denies back pain or muscle pain Neuro: Denies numbness, tingling, weakness or focal weakness Skin: Denies rash Except as documented, all other systems reviewed and negative [facility] Past Medical History Medical History Anxiety Depression Frequent UTI Herpes simplex 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 Neuropathy Opioid use Vicodin Opioid use Vicodin Opioid use Vicodin Substance abuse On methadone Toenail fungus Surgical History Surgical History H/O: hysterectomy Hx of tonsillectomy Family History Family History Other No significant family history Social History Social History Smoking packs per day: 1 Smoking cigarettes per day: 20.0 Years smoked: 20 Smoking pack-years: 20.00 Smoking status: Current every day smoker Second hand tobacco smoke exposure: Yes Alcohol intake: never Substance use: former Substance use type: painkillers Other substance usage details: Deirdre denies using recreational drugs at this time Living arrangements: with family Occupation/Education: occupation Gender identity (if verbalized by the patient): Female Exam Narrative: APPEARANCE: Well appearing, no pain in distress, well-nourished. Head: Normocephalic and atraumatic. EYES: PERRLA/EOMI, conjunctivae clear NOSE: No nasal drainage EARS: External ear normal in appearance THROAT: Oropharynx is clear. Mucous membranes are moist. NECK: Supple. No adenopathy, no masses. RESPIRATORY: Airway patent, respirations nonlabored. Clear to auscultation bilaterally, no rales, rhonchi, wheezing. CARDIOVASCULAR: Regular rate and rhythm without murmurs, rubs, or gallops. ABDOMINAL: Tender to palpation in the right upper quadrant. Normoactive bowel sounds. Soft, nondistended. No rebound tenderness or guarding. MUSCULOSKELETAL: Extremities are warm and well-perfused. Moves all extremities well. No edema. NEURO: Normal speech. No focal neurologic deficits. SKIN: Skin is warm and dry. No rashes. PSYCHIATRIC: Normal affect/mood.. Course Vital Signs Vital signs: Vital Signs Temperature 97.4 F L 06/22/22 14:37 Pulse Rate 73 0
[2022-06-22] MEDS: ONDANSETRON INJ 4 MG/2 ML VIAL IV PUSH ×2 (17:57→21:10)
[2022-06-22] MEDS: LACTATED RINGERS 1,000 ML 999 ML IV CONT (17:57)
[2022-06-22] MEDS: FAMOTIDINE 20 MG/2 ML VIAL IV PUSH (18:01)
[2022-06-22 18:07] LABS: Lactic Acid Reflex 0.7 mmol/L (0.7-2.0)
[2022-06-22 18:55] LABS: Pregnancy On Board Control Positive; Urine Pregnancy Test Negative
--- NOTE | 2022-06-22 19:18 | PC.NURSE ---
RN assumed care. Received report from Cat RN
== END 2022-06-22 21:45 | disposition home or self-care (01) ==
PROVIDERS: Emergency Medicine; Emergency Provider Physician Assistant; PCP Internal Medicine
DX: K29.70 Gastritis, unspecified, without bleeding (principal); F41.9 Anxiety disorder, unspecified; F32.A Depression, unspecified; F17.210 Nicotine dependence, cigarettes, uncomplicated
CPT/HCPCS: 36415; 74177; 76705; 80053; 81001; 81025; 83605; 83690; 85025; 96361; 96374; 96375; 96376; 99284; J0131; J2405; J7120; Q9967

== ENCOUNTER 2022-09-13 10:38 | Emergency (ER) | payer OTHER, SELFPAY ==
[2022-09-13 11:11] VITALS: BP 151/84; PULSE 70; RESP 18; TEMP 36.9; O2SAT 100
--- NOTE | 2022-09-13 11:33 | ED.FEMALEGU ---
HPI - Female Genitourinary General Chief complaint: Urogenital-Female Stated complaint: UTI Time Seen by Provider: 09/13/22 11:34 Source: patient and RN notes reviewed Mode of arrival: ambulatory Limitations: no limitations History of Present Illness HPI Narrative: 42 y/o female presented for concern for std. Endorses vaginal pain and burning constantly for 3 days, and suprapubic pressure with urinating. Denies vaginal discharge, rash/bumps/lesions to vaginal area, hematuria, flank pain, n/v/d/f/c. Patient was tested and treated for gonorrhea about 2 months ago at a clinic, but states she has since had sexual relations with the same partner and is unsure if he was treated. Patient does not have an OBGyn Related Data Home Medications Medication Instructions Recorded Confirmed mirtazapine 15 mg tablet 15 mg PO DAILY 03/07/22 09/13/22 sertraline 100 mg tablet 100 mg PO DAILY 03/07/22 09/13/22 Allergies Allergy/AdvReac Type Severity Reaction Status Date / Time Sulfa (Sulfonamide Allergy Unknown RASH, Verified 09/13/22 10:52 Antibiotics) VOMITING Review of Systems Review of Systems: CONSTITUTIONAL: Denies body aches, fever, chills, or sweats. CARDIOVASCULAR: Denies chest pain, palpitations, or edema. RESPIRATORY: Denies cough or dyspnea. GASTROINTESTINAL: Denies abdominal pain, nausea, vomiting, or diarrhea. GENITOURINARY: per HPI SKIN: Denies rash, itching, or wounds. MUSCULOSKELETAL: Denies back pain or myalgia. PMFSH Past Medical History Medical History Anxiety Depression Frequent UTI Herpes simplex 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 Neuropathy Opioid use Vicodin Opioid use Vicodin Opioid use Vicodin Substance abuse On methadone Toenail fungus Surgical History Surgical History H/O: hysterectomy Hx of tonsillectomy Family History Family History Other No significant family history Social History Social History Smoking packs per day: 1 Smoking cigarettes per day: 20.0 Years smoked: 20 Smoking pack-years: 20.00 Smoking status: Current every day smoker Second hand tobacco smoke exposure: Yes Alcohol intake: never Substance use: former Substance use type: painkillers Other substance usage details: Deirdre denies using recreational drugs at this time Living arrangements: with family Occupation/Education: occupation Gender identity (if verbalized by the patient): Female Comments At time of signature, I have reviewed and agree with nursing past medical, surgical, social and family history unless otherwise noted. Please see nursing chart for further information. There is no relevant family history pertinent to the presenting complaint Exam Narrative: GENERAL: Well-appearing and in no acute distress. ENT: Mucous membranes pink and moist. NECK: Normal AROM. Supple. CHEST: No respiratory distress. Clear to auscultation. HEART: Regular rate and rhythm. ABDOMEN: Soft, nondistended, normal active bowel sounds. Suprapubic tenderness. No CVA tenderness : Speculum Exam and manual not tolerated by patient due to pain upon insertion of speculum, no apparent foreign body, laceration or lesions noted. No swelling. No apparent vaginal discharge. Chaperoned by Sandy HART SKIN: Warm, dry, no rash. NEURO: No focal deficits. Alert and oriented x3. Gait steady. Course Course Emergency Course: Patient is aware of diagnosis, understands and agrees to treatment plan. Anticipatory guidance given. Patient agrees to follow-up as directed and is aware of reasons to seek care at the emergency department. Portions of this record may have been created with voice recognition software Level of Care: [facility] Care Visit
[2022-09-13] MEDS: cefTRIAXone 500 MG, LIDOCAINE HCL 1% LOCAL INJ 1 ML IM (12:02)
== END 2022-09-13 12:37 | disposition home or self-care (01) ==
PROVIDERS: Emergency Provider Nurse Practitioner Family; PCP Emergency Medicine
DX: Z20.2 Contact with and (suspected) exposure to infections with a predominantly sexual mode of transmission (principal); F41.9 Anxiety disorder, unspecified; F32.A Depression, unspecified; F17.210 Nicotine dependence, cigarettes, uncomplicated
CPT/HCPCS: 81003; 81025; 87491; 87591; 87661; 96372; 99213; G0463; J0696

== ENCOUNTER 2022-10-05 19:35 | Emergency (ER) | payer OTHER, SELFPAY ==
[2022-10-05 19:39] VITALS: BP 126/83; PULSE 73; RESP 16; TEMP 36.6; O2SAT 97
--- NOTE | 2022-10-05 19:44 | ED.FEMALEGU ---
HPI - Female Genitourinary General Chief complaint: Upper Respiratory Infection Stated complaint: UTI Time Seen by Provider: 10/05/22 19:44 Source: patient, RN notes reviewed and old records reviewed Mode of arrival: ambulatory Limitations: no limitations History of Present Illness HPI Narrative: 42-year-old female presents to the [facility] wanting to be tested for STDs. States that she recently caught her partner with another per person. Denies any symptoms. Patient was seen a month ago and was tested for chlamydia, gonorrhea and Trichomonas, all were negative at that time. Related Data Home Medications Medication Instructions Recorded Confirmed mirtazapine 15 mg tablet 15 mg PO DAILY 03/07/22 10/05/22 sertraline 100 mg tablet 100 mg PO DAILY 03/07/22 10/05/22 Allergies Allergy/AdvReac Type Severity Reaction Status Date / Time Sulfa (Sulfonamide Allergy Unknown RASH, Verified 09/13/22 10:52 Antibiotics) VOMITING Review of Systems Review of Systems: All systems reviewed & are unremarkable except as noted in HPI and below Constitutional: Constitutional: Reports no additional constitutional complaints Eyes: Eyes: Reports no additional eye complaints ENT: Reports system reviewed and no additional complaints, except as documented Cardiovascular: Cardiovascular: Reports no additional cardiovascular complaints, Denies chest pain and Denies dyspnea Respiratory: Respiratory: Reports no additional respiratory complaints, Denies chest congestion, Denies cough and Denies dyspnea Gastrointestinal: Gastrointestinal: Reports no additional gastrointestinal complaints, Denies abdominal pain, Denies nausea and Denies vomiting Musculoskeletal: Musculoskeletal: Reports no additional musculoskeletal complaints Integumentary/Breasts: Skin/Breast: Reports system reviewed and no additional complaints, except as docu Neurologic: Reports system reviewed and no additional complaints, except as documented Psychiatric: Psychiatric: Reports no additional psychiatric complaints Allergic/Immunologic: Allergic/Immunologic: Reports no additional allergic/immunologic complaints PMFSH Past Medical History Medical History Anxiety Depression Frequent UTI Herpes simplex 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 Neuropathy Opioid use Vicodin Opioid use Vicodin Opioid use Vicodin Substance abuse On methadone Toenail fungus Surgical History Surgical History H/O: hysterectomy Hx of tonsillectomy Family History Family History Other No significant family history Social History Social History Smoking packs per day: 1 Smoking cigarettes per day: 20.0 Years smoked: 20 Smoking pack-years: 20.00 Smoking status: Current every day smoker Second hand tobacco smoke exposure: Yes Alcohol intake: never Substance use: former Substance use type: painkillers Other substance usage details: Deirdre denies using recreational drugs at this time Living arrangements: with family Occupation/Education: occupation Gender identity (if verbalized by the patient): Female Comments At the time of my signature, I reviewed and agree with the nursing past medical, surgical, social, and family history. There is no relevant family history pertinent to the patient complaint. Exam Const: General: cooperative, healthy appearing, comfortable, no acute distress, well developed, alert and well nourished Nutritional Appearance: well nourished Orientation/consciousness: patient oriented x3 Limitations: no limitations HENMT: Head: normal to inspection Ears: hearing grossly normal bilaterally and external ears normal Face/Nose/Sinus: Normal external nose present, Normal nares present, Normal na
== END 2022-10-05 19:55 | disposition home or self-care (01) ==
PROVIDERS: Emergency Provider Nurse Practitioner; PCP Emergency Medicine
DX: Z11.3 Encounter for screening for infections with a predominantly sexual mode of transmission (principal); F17.210 Nicotine dependence, cigarettes, uncomplicated
CPT/HCPCS: 81003; 87491; 87591; 87661; 99214; G0463

== ENCOUNTER 2022-10-30 10:43 | Emergency (ER) | payer SELFPAY ==
[2022-10-30 10:50] VITALS: BP 138/75; PULSE 83; RESP 14; TEMP 36.5; O2SAT 100
--- NOTE | 2022-10-30 10:51 | ED.GENADULT ---
HPI - General Adult General Chief complaint: Ear Stated complaint: Left Ear Irritation Time Seen by Provider: 10/30/22 10:52 Source: patient Mode of arrival: ambulatory Limitations: no limitations History of Present Illness HPI narrative: 2-year-old female patient presents to the [facility] with complaints of left ear pain, congestion mild nonproductive cough. Patient states the ear pain has gotten significantly more painful the last 24 hours. Denies fevers, body aches or chills. Related Data Home Medications Medication Instructions Recorded Confirmed mirtazapine 15 mg tablet 15 mg PO DAILY 03/07/22 10/30/22 sertraline 100 mg tablet 100 mg PO DAILY 03/07/22 10/30/22 Allergies Allergy/AdvReac Type Severity Reaction Status Date / Time Sulfa (Sulfonamide Allergy Unknown RASH, Verified 10/30/22 10:48 Antibiotics) VOMITING Review of Systems Review of Systems: CONSTITUTIONAL: Denies fever, chills, or sweats. EYES: Denies visual changes, redness, or discharge. ENT: Denies rhinorrhea, positive congestion, sore throat, positive left otalgia. CARDIOVASCULAR: Denies chest pain, palpitations, or edema. RESPIRATORY: Positive cough or dyspnea. GASTROINTESTINAL: Denies abdominal pain, nausea, vomiting, or diarrhea. GENITOURINARY: Denies dysuria or hematuria. SKIN: Denies rash or itching. MUSCULOSKELETAL: Denies back pain, joint pain, or myalgia. NEUROLOGIC: Denies headache, numbness, or weakness. PSYCHIATRIC: Denies anxiety or depression. 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 Neuropathy Opioid use Vicodin Opioid use Vicodin Opioid use Vicodin Substance abuse On methadone Toenail fungus Surgical History Surgical History H/O: hysterectomy Hx of tonsillectomy Family History Family History Other No significant family history Social History Social History Smoking packs per day: 1 Smoking cigarettes per day: 20.0 Years smoked: 20 Smoking pack-years: 20.00 Smoking status: Current every day smoker Second hand tobacco smoke exposure: Yes Alcohol intake: never Substance use: former Substance use type: painkillers Other substance usage details: Deirdre denies using recreational drugs at this time Living arrangements: with family Occupation/Education: occupation Gender identity (if verbalized by the patient): Female Comments At the time of my signature I agree with nursing past medical history, surgical, social, and family history. There is no relevant family history pertinent to the presenting complaint. Exam Narrative: GENERAL: Well-appearing, well-nourished, and in no acute distress. HEAD: Normocephalic, atraumatic. EYES: PERRLA and EOMI. ENT: Nares clear, no rhinorrhea or epistaxis. Mucous membranes moist. Posterior pharynx with positive postnasal drip present. The bilateral TMs appear to have erythema and fluid behind them. The left canal appears to have some type of wound noted with some dry blood in surrounding erythema close to the opening of the canal. NECK: Supple. No lymphadenopathy CHEST: Clear to auscultation. No respiratory distress. HEART: Regular rate and rhythm. No murmur heard. Normal peripheral pulses. ABDOMEN: Soft, nontender, nondistended, normal active bowel sounds. EXTREMITIES: Normal range of motion. No edema. SKIN: Warm, dry, no rash. NEURO: No focal deficits. Alert and oriented x3. Course Course Level of Care: Express Care Visit Vital Signs Vital signs: Vital Signs Temperature 36.5 C 10/30/22 10:50 Pulse Rate 83 10/30/22 10:50 Respiratory Rate 14 10/30/22 10:50 Blood Pressure 138/75
== END 2022-10-30 11:17 | disposition home or self-care (01) ==
PROVIDERS: Emergency Provider Nurse Practitioner Family
DX: H66.93 Otitis media, unspecified, bilateral (principal); H60.92 Unspecified otitis externa, left ear; F17.210 Nicotine dependence, cigarettes, uncomplicated; G62.9 Polyneuropathy, unspecified; F41.9 Anxiety disorder, unspecified; F32.A Depression, unspecified
CPT/HCPCS: 99213; G0463

== ENCOUNTER 2022-11-18 19:36 | Emergency (ER) | payer SELFPAY ==
--- NOTE | 2022-11-18 19:42 | ED.URI ---
HPI - URI/Sore Throat General Chief Complaint: Upper Respiratory Infection Stated Complaint: COVID+ Time Seen by Provider: 11/18/22 20:09 Source: patient Mode of arrival: ambulatory Limitations: no limitations History of Present Illness HPI Narrative: Patient is a 42-year-old female who presents with headache, body ache, nonproductive cough, hot cold chills since yesterday. Patient tested positive at home yesterday and this morning. Patient states there was 17 cases of COVID at work. Patient has been taking ibuprofen and Excedrin. Requesting work for note. Related Data Home Medications Medication Instructions Recorded Confirmed methadone 5 mg tablet 35 mg PO DAILY 11/18/22 11/18/22 mirtazapine 30 mg tablet mg 11/18/22 sertraline 100 mg tablet mg 11/18/22 Allergies Allergy/AdvReac Type Severity Reaction Status Date / Time Sulfa (Sulfonamide Allergy Unknown RASH, Verified 11/18/22 19:53 Antibiotics) VOMITING Review of Systems Review of Systems: All systems reviewed & are unremarkable except as noted in HPI and below Constitutional: Constitutional: Reports body ache(s), Reports chills, Denies fatigue, Reports fever(s), Denies headache(s), Denies malaise and Denies weakness Eyes: Eyes: Denies blurry vision, Denies itchy eyes and Denies loss of vision ENT: Denies otalgia, Reports headache(s), Denies nasal congestion, Denies sinus pain and Denies sore throat Cardiovascular: Cardiovascular: Denies chest pain, Denies irregular heart rhythm and Denies dyspnea Respiratory: Respiratory: Reports cough and Denies dyspnea Gastrointestinal: Gastrointestinal: Denies abdominal pain, Denies diarrhea, Denies nausea and Denies vomiting Musculoskeletal: Musculoskeletal: Denies back pain, Denies myalgias and Denies arthralgias Integumentary/Breasts: Skin/Breast: Denies pruritus and Denies rash Neurologic: Reports headache(s), Denies loss of vision and Denies weakness Psychiatric: Psychiatric: Reports no additional psychiatric complaints Endocrine: Endocrine: Denies fatigue Allergic/Immunologic: Allergic/Immunologic: Denies itchy eyes PMFSH Past Medical History Medical History Anxiety Depression Frequent UTI Herpes simplex 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 Neuropathy Opioid use Vicodin Opioid use Vicodin Opioid use Vicodin Substance abuse On methadone Toenail fungus Surgical History Surgical History H/O: hysterectomy Hx of tonsillectomy Family History Family History Other No significant family history Social History Social History Smoking packs per day: 1 Smoking cigarettes per day: 20.0 Years smoked: 20 Smoking pack-years: 20.00 Smoking status: Current every day smoker Second hand tobacco smoke exposure: Yes Alcohol intake: never Substance use: former Substance use type: painkillers Other substance usage details: Deirdre denies using recreational drugs at this time Living arrangements: with family Occupation/Education: occupation Gender identity (if verbalized by the patient): Female Comments At time of signature, agree with nursing past medical, surgical, social and family history. There is no relevant family history pertinent to the presenting complaint. Exam Const: General: cooperative, healthy appearing, comfortable, no acute distress and well nourished Nutritional Appearance: well nourished Orientation/consciousness: patient oriented x3 Limitations: no limitations HENMT: Head: normal to inspection, normocephalic and atraumatic Ears: hearing grossly normal bilaterally, external ears normal, TM's normal bilaterally, EAC's normal and no periauricular adenopathy Face/Nose/Sinus: Normal external nose present, Abnor
[2022-11-18 19:54] VITALS: BP 116/77; PULSE 85; RESP 16; TEMP 36.9; O2SAT 98
== END 2022-11-18 20:36 | disposition home or self-care (01) ==
PROVIDERS: Emergency Provider Nurse Practitioner Family
DX: U07.1 COVID-19 (principal); F17.210 Nicotine dependence, cigarettes, uncomplicated
CPT/HCPCS: 99213; G0463

== ENCOUNTER 2023-04-23 12:09 | Emergency (ER) | payer OTHER, SELFPAY ==
[2023-04-23 12:27] VITALS: BP 120/74; PULSE 93; RESP 16; TEMP 37.2; O2SAT 99
--- NOTE | 2023-04-23 13:08 | ED.FEMALEGU ---
HPI - Female Genitourinary General Chief complaint: Urogenital-Female Stated complaint: urinary issue Time Seen by Provider: 04/23/23 13:08 Source: patient, RN notes reviewed and old records reviewed Mode of arrival: ambulatory Limitations: no limitations History of Present Illness HPI Narrative: 42-year-old female presents to the [facility] with urgency, frequency, burning with urination that started last night. Reports suprapubic pressure without significant abdominal pain. Denies nausea or vomiting. Denies CVA tenderness. Denies fevers Onset (ago): day(s) (1) Related Data Home Medications Medication Instructions Recorded Confirmed sertraline 100 mg tablet 100 mg PO DAILY 11/18/22 04/23/23 Allergies Allergy/AdvReac Type Severity Reaction Status Date / Time Sulfa (Sulfonamide Allergy Unknown RASH, Verified 04/23/23 12:13 Antibiotics) VOMITING Review of Systems Review of Systems: All systems reviewed & are unremarkable except as noted in HPI and below Constitutional: Constitutional: Reports no additional constitutional complaints Eyes: Eyes: Reports no additional eye complaints ENT: Reports system reviewed and no additional complaints, except as documented Cardiovascular: Cardiovascular: Reports no additional cardiovascular complaints, Denies chest pain and Denies dyspnea Respiratory: Respiratory: Reports no additional respiratory complaints, Denies chest congestion, Denies cough and Denies dyspnea Gastrointestinal: Gastrointestinal: Reports no additional gastrointestinal complaints, Denies abdominal pain, Denies nausea and Denies vomiting Genitourinary: Genitourinary: Reports as per HPI Musculoskeletal: Musculoskeletal: Reports no additional musculoskeletal complaints Integumentary/Breasts: Skin/Breast: Reports system reviewed and no additional complaints, except as docu Neurologic: Reports system reviewed and no additional complaints, except as documented Psychiatric: Psychiatric: Reports no additional psychiatric complaints Allergic/Immunologic: Allergic/Immunologic: Reports no additional allergic/immunologic complaints PMFSH Past Medical History Medical History Anxiety Depression Frequent UTI Herpes simplex 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 Neuropathy Opioid use Vicodin Opioid use Vicodin Opioid use Vicodin Substance abuse On methadone Toenail fungus Surgical History Surgical History H/O: hysterectomy Hx of tonsillectomy Family History Family History Other No significant family history Social History Social History Smoking packs per day: 1 Smoking cigarettes per day: 20.0 Years smoked: 20 Smoking pack-years: 20.00 Smoking status: Current every day smoker Second hand tobacco smoke exposure: Yes Alcohol intake: never Substance use: former Substance use type: painkillers Other substance usage details: Deirdre denies using recreational drugs at this time Living arrangements: with family Occupation/Education: occupation Gender identity (if verbalized by the patient): Female Comments At the time of my signature, I reviewed and agree with the nursing past medical, surgical, social, and family history. There is no relevant family history pertinent to the patient complaint. Exam Const: General: cooperative, healthy appearing, comfortable, no acute distress, well developed, alert and well nourished Nutritional Appearance: well nourished Orientation/consciousness: patient oriented x3 Limitations: no limitations HENMT: Head: normal to inspection Ears: hearing grossly normal bilaterally and external ears normal Face/Nose/Sinus: Normal external nose present, Normal nares present, Normal nasal mucous membrane
== END 2023-04-23 13:17 | disposition home or self-care (01) ==
PROVIDERS: Emergency Provider Nurse Practitioner
DX: N39.0 Urinary tract infection, site not specified (principal); B96.4 Proteus (mirabilis) (morganii) as the cause of diseases classified elsewhere; F41.9 Anxiety disorder, unspecified; F32.A Depression, unspecified; G62.9 Polyneuropathy, unspecified; F17.210 Nicotine dependence, cigarettes, uncomplicated
CPT/HCPCS: 81003; 87077; 87086; 87186; 99213; G0463

== ENCOUNTER 2023-05-01 14:41 | Emergency (ER) | payer OTHER, SELFPAY ==
[2023-05-01 14:54] VITALS: BP 117/85; PULSE 79; RESP 18; TEMP 36.6; O2SAT 98
--- NOTE | 2023-05-01 16:17 | ED.DENTAL ---
HPI - Dental/Oral General Chief complaint: Dental/Oral Stated complaint: Dental Pain Source: patient Mode of arrival: ambulatory Limitations: no limitations History of Present Illness HPI Narrative: Patient presents for evaluation of left upper dental pain. Symptom onset 4 hours ago after breaking a tooth. She no rates her pain 8/10 in severity, without descriptive quality. No fever, chills, vomiting, had difficulty handling secretions or trismus. She does have some nausea. She took some Tylenol with mild improvement in her symptoms or after. She does smoke. Related Data Allergies Allergy/AdvReac Type Severity Reaction Status Date / Time Sulfa (Sulfonamide Allergy Unknown RASH, Verified 05/01/23 15:20 Antibiotics) VOMITING Review of Systems Review of Systems: CONSTITUTIONAL: Denies fever, chills, or sweats. EYES: Denies visual changes, redness, or discharge. ENT: Reports left upper dental painn. Denies rhinorrhea, congestion, sore throat, or otalgia. CARDIOVASCULAR: Denies chest pain, palpitations, or edema. RESPIRATORY: Denies cough or dyspnea. GASTROINTESTINAL:Reports nausea. Denies abdominal pain, vomiting, or diarrhea. GENITOURINARY: Denies dysuria or hematuria. SKIN: Denies rash or itching. MUSCULOSKELETAL: Denies back pain, joint pain, or myalgia. NEUROLOGIC: Denies headache, numbness, dizziness, or weakness. PSYCHIATRIC: Denies anxiety or depression. [facility] Past Medical History Medical History Anxiety Depression Frequent UTI Herpes simplex 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 Neuropathy Opioid use Vicodin Opioid use Vicodin Opioid use Vicodin Substance abuse On methadone Toenail fungus Surgical History Surgical History H/O: hysterectomy Hx of tonsillectomy Family History Family History Other No significant family history Social History Social History Smoking packs per day: 1 Smoking cigarettes per day: 20.0 Years smoked: 20 Smoking pack-years: 20.00 Smoking status: Current every day smoker Second hand tobacco smoke exposure: Yes Alcohol intake: never Substance use: former Substance use type: painkillers Other substance usage details: Deirdre denies using recreational drugs at this time Living arrangements: with family Occupation/Education: occupation Gender identity (if verbalized by the patient): Female Exam Narrative: GENERAL: Well-appearing, well-nourished, and in no acute distress. HEAD: Normocephalic, atraumatic. EYES: PERRLA and EOMI. ENT: Nares clear, no rhinorrhea or epistaxis. Mucous membranes moist. There are several absent teeth. Tooth #12 is fractured. No visible or palpable abscess. Oropharynx without tonsillar hypertrophy exudate or other lesions. Bilateral TMs pearly bailey nonbulging NECK: Supple. No adenopathy or masses. No carotid bruits or JVD CHEST: Clear to auscultation. No respiratory distress. No wheezes rales or rhonchi HEART: Regular rate and rhythm. No murmur heard. Normal peripheral pulses. ABDOMEN: Soft, nontender, nondistended, normal active bowel sounds. EXTREMITIES: Normal range of motion. No edema. SKIN: Warm, dry, no rash. NEURO: No focal deficits. Alert and oriented x3. PSYCH: Normal mood and affect. Course Course Emergency Course: This is a 42-year-old female who presented for evaluation of left upper dental pain. Discharge with ibuprofen, penicillin, and Zofran. Advised not to smoke. Follow-up with dentist. Go to the ER for worsening symptoms. Patient in agreement with plan of care. Level of Care: Express Care Visit Vital Signs Vital signs: Vital Signs Temperature 36.6 C 05/01/23 14:54 Pulse Rate 79 05/01/23 14:
== END 2023-05-01 16:20 | disposition home or self-care (01) ==
PROVIDERS: Emergency Provider Nurse Practitioner
DX: S02.5XXA Fracture of tooth (traumatic), initial encounter for closed fracture (principal); X58.XXXA Exposure to other specified factors, initial encounter
CPT/HCPCS: 99213; G0463

== ENCOUNTER 2023-08-01 08:07 | Emergency (ER) | payer OTHER, SELFPAY ==
[2023-08-01 08:21] VITALS: BP 133/90; PULSE 81; RESP 18; TEMP 37; O2SAT 98
--- NOTE | 2023-08-01 08:22 | ED.FEMALEGU ---
HPI - Female Genitourinary General Chief complaint: Urogenital-Female Stated complaint: bladder issue Time Seen by Provider: 08/01/23 08:22 Source: patient Mode of arrival: ambulatory Limitations: no limitations History of Present Illness HPI Narrative: 43-year-old female presents with complaint of urinary frequency, urgency, dysuria starting at 1:00 a.m. Denies nausea vomiting. Afebrile. Patient also reports sinus congestion, pressure, postnasal drainage the past 2-3 weeks. Patient reports that her allergies are bothering her . Is not taking any daily antihistamine. No chest pain or shortness breath. All systems reviewed and negative except as noted above. Related Data Home Medications Medication Instructions Recorded Confirmed mirtazapine 15 mg tablet (Remeron) mg 08/01/23 08/01/23 sertraline 100 mg tablet mg 08/01/23 Allergies Allergy/AdvReac Type Severity Reaction Status Date / Time Sulfa (Sulfonamide Allergy Unknown RASH, Verified 08/01/23 08:36 Antibiotics) VOMITING Review of Systems Review of Systems: CONSTITUTIONAL: Denies fever, chills, or sweats. Reports fatigue. EYES: Denies visual changes, redness, or discharge. ENT: Reports rhinorrhea, congestion, sinus pressure. Denies sore throat, or otalgia. CARDIOVASCULAR: Denies chest pain, palpitations, or edema. RESPIRATORY: Denies cough or dyspnea. GASTROINTESTINAL: Denies abdominal pain, nausea, vomiting, or diarrhea. GENITOURINARY: reports dysuria urgency, frequency. Denies hematuria. SKIN: Denies rash or itching. MUSCULOSKELETAL: Denies back pain, joint pain, or myalgia. NEUROLOGIC: Denies headache, numbness, or weakness. PSYCHIATRIC: Denies anxiety or depression. All other systems reviewed are negative, except as documented in HPI. 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 Neuropathy Opioid use Vicodin Opioid use Vicodin Opioid use Vicodin Substance abuse On methadone Toenail fungus Surgical History Surgical History H/O: hysterectomy Hx of tonsillectomy Family History Family History (Reviewed 05/01/23 @ 16:20 by Kenyon Trevizo, [facility]) Other No significant family history Social History Social History Smoking packs per day: 1 Smoking cigarettes per day: 20.0 Years smoked: 20 Smoking pack-years: 20.00 Smoking status: Current every day smoker Second hand tobacco smoke exposure: Yes Alcohol intake: never Substance use: former Substance use type: painkillers Other substance usage details: Deirdre denies using recreational drugs at this time Living arrangements: with family Occupation/Education: occupation Gender identity (if verbalized by the patient): Female Comments At time of signature, agree with nursing past medical, surgical, social and family history. There is no relevant family history pertinent to the presenting complaint. Exam Narrative: GENERAL: This is a well-nourished, well-developed patient, in no apparent distress. HEAD: normocephalic, atraumatic. EYES: PERRL. Sclera clear/white. Vision is grossly intact. EARS: External ears normal, auditory canals clear and without drainage, Fluid bilateral TMs without perforation. Hearing grossly intact. NOSE: External nose normal with moderate congestion purulent nasal drainage, erythema and swelling to bilateral nares. THROAT: Mucous membranes moist, No erythema, postnasal drainage. NECK: Neck supple, non-tender without lymphadenopathy, masses or thyromegaly. CARDIOVASCULAR: Regular rate and rhythm without murmurs, gallops, or rubs. RESPIRATORY: Clear to auscultation. Breath sounds equal bilaterally. No wheezes, rales, or rhonch
== END 2023-08-01 08:40 | disposition home or self-care (01) ==
PROVIDERS: Emergency Provider Nurse Practitioner Family
DX: N39.0 Urinary tract infection, site not specified (principal); J01.80 Other acute sinusitis; B96.89 Other specified bacterial agents as the cause of diseases classified elsewhere; F41.8 Other specified anxiety disorders; F17.210 Nicotine dependence, cigarettes, uncomplicated
CPT/HCPCS: 81003; 87077; 87086; 87088; 87186; 99213; G0463

== ENCOUNTER 2023-08-11 09:57 | Outpatient (CLI) | payer OTHER, SELFPAY ==
--- NOTE | ~2023-08-11 | XR_ITS ---
EXAMINATION: XR thoracic spine 3V DATE: 08/11/2023 10:28 INDICATION: Chronic mid back pain. TECHNIQUE: 3 views of thoracic spine were obtained. COMPARISON: Chest 2 views 12/10/2021 FINDINGS: There is 4 degrees dextrocurvature of thoracic spine. Vertebral body heights are normal. In tervertebral disc heights are normal. There are endplate osteophytes at multiple levels. There is mul tilevel mild facet joint osteoarthritis. IMPRESSION: 1. Mild thoracic spondylosis. Reviewed, dictated and finalized at location E.
--- NOTE | ~2023-08-11 | XR_ITS ---
EXAMINATION: XR lumbar spine 2-3V DATE: 08/11/2023 10:28 INDICATION: Chronic low back pain. TECHNIQUE: 3 views of lumbar spine were obtained. COMPARISON: Lumbar spine radiographs 05/12/2014 FINDINGS: There is 6 degrees levocurvature of thoracolumbar spine. There is mild chronic anterior wed ging of L1 vertebral body. Intervertebral disc heights are normal. There are endplate osteophytes at L1-L2. There is multilevel mild facet joint osteoarthritis. IMPRESSION: 1. Mild lumbar spondylosis. Reviewed, dictated and finalized at location E. IMPRESSION: 1. Mild lumbar spondylosis.
[2023-08-11 12:58] LABS: Hematocrit 42.5 % (37.0-47.0); Hemoglobin 14.5 g/dL (12.0-15.0); Mean Corpuscular HGB Conc 34.1 g/dl (32-36); Mean Corpuscular Volume 90.8 fl (80-100); Mean Platelet Volume 10.9 fl (7.4-10.4); Platelet Count Result 310 k/mm3 (150-375); Red Blood Count 4.68 M/mm3 (4.2-5.4); Red Cell Distribution Width 13.4 % (11.5-14.5); White Blood Count 10.3 K/mm3 (4.5-10.0)
[2023-08-11 13:13] LABS: Alanine Aminotransferase 40 U/L (6-35); Albumin Level 4.8 g/dL (3.5-5.1); Alkaline Phosphatase 101 U/L (38-126); Anion Gap 13 mmol/L (4-12); Aspartate Amino Transferase 30 U/L (14-36); Bilirubin,Total 0.6 mg/dL (0.2-1.3); Blood Urea Nitrogen 12 mg/dL (7-17); Calcium 9.7 mg/dL (8.4-10.2); Carbon Dioxide 20 mmol/L (22-30); Chloride 109 mmol/L (98-107); Cholesterol 161 mg/dL (0-200); Estimated Glomerular Filt Rate > 60; Glucose 198 mg/dL (65-110); HDL Direct 44 mg/dL; Potassium 3.6 mmol/L (3.4-5.0); Sodium 142 mmol/L (137-145); Triglycerides 155 mg/dL (<150)
[2023-08-11 13:24] LABS: LDL Cholesterol Direct 108 mg/dL
[2023-08-11 13:33] LABS: Appearance Urine Clear (Clear); Bilirubin Urine Negative (Negative); Blood Urine Negative (Negative); Color Urine Yellow (Yellow); Glucose Urine UA Negative (Negative); Ketones Urine Negative (Negative); Leukocyte Esterase Ur Negative LEU/UL (Negative); Nitrate Urine Negative (Negative); Protein Urine Negative (Negative); Urobilinogen Urine 0.2 mg/dL (<2.0); pH Urine 6.5 (5.0-9.0)
[2023-08-11 13:42] LABS: Thyroid Stimulating Hormone 0.491 uIU/mL (0.465-4.680)
[2023-08-11 13:47] LABS: Add Urine Microscopic? NO; Specific Grav Ur 1.003 (1.001-1.035)
[2023-08-11 13:51] LABS: HIV 1/2 Ab P24 Ag Result Negative (Negative)
[2023-08-11 13:56] LABS: Free T4 Free Thyroxine 0.81 ng/mL (0.78-2.19)
[2023-08-11 14:11] LABS: Hepatitis B Surface Antigen Negative (Negative)
[2023-08-11 14:17] LABS: HAV RESULT Negative (Negative); Hepatitis B Core IgM Result Negative (Negative)
[2023-08-11 14:28] LABS: Hepatitis C Virus Antibody Negative (Negative)
[2023-08-11 15:02] LABS: Chlamydia trachomatis NOT DETECTED (NOT DETECTE); Neisseria gonorrhoeae PCR NOT DETECTED (NOT DETECTE)
[2023-08-11 17:11] LABS: Rapid Plasma Reagin Non-Reactive (NonReactive)
[2023-08-11 17:59] LABS: Creatinine Urine 10.1 mg/dL
[2023-08-11 20:37] LABS: Microalbumin Urine Random < 6.0 mg/L (0-16.7)
[2023-08-12 18:33] LABS: H pylori, Urea Breath NOT DETECTED (NOT DETECTED)
== END 2023-08-11 09:58 | disposition home or self-care (01) ==
PROVIDERS: PCP Emergency Medicine; Visit Provider Emergency Medicine
DX: D72.829 Elevated white blood cell count, unspecified (principal); N39.0 Urinary tract infection, site not specified; R94.5 Abnormal results of liver function studies; F32.9 Major depressive disorder, single episode, unspecified; G62.9 Polyneuropathy, unspecified; M47.894 Other spondylosis, thoracic region; M47.896 Other spondylosis, lumbar region
CPT/HCPCS: 36415; 72072; 72100; 80053; 80061; 80074; 81003; 82043; 83013; 83036; 84439; 84443; 85027; 86592; 86703; 87086; 87491; 87591; G0432

== ENCOUNTER 2023-08-15 10:36 | Emergency (ER) | payer OTHER, SELFPAY ==
[2023-08-15 10:46] VITALS: BP 145/113; PULSE 125; RESP 22; TEMP 36.9; O2SAT 100
[2023-08-15 10:51] VITALS: BP 145/113; PULSE 125; RESP 22; TEMP 36.9; O2SAT 100
--- NOTE | 2023-08-15 11:05 | ED.NAVMDI ---
HPI - Nausea/Vomiting/Diarrhea General Chief complaint: Nausea/Vomiting/Diarrhea Stated complaint: shakes,vomitting went off methadone Time Seen by Provider: 08/15/23 10:56 Source: patient and RN notes reviewed Mode of arrival: ambulatory Limitations: no limitations History of Present Illness HPI Narrative: Patient presents today complaining of nausea and muscle spasms/body shaking. Patient was on methadone for the past 10 years and stopped cold turkey 6 days ago. She is requesting antiemetic and medication for her shaking. Related Data Home Medications Medication Instructions Recorded Confirmed sertraline 100 mg tablet 100 mg DIRECTED 08/01/23 08/15/23 Allergies Allergy/AdvReac Type Severity Reaction Status Date / Time Sulfa (Sulfonamide Allergy Unknown RASH, Verified 08/01/23 08:36 Antibiotics) VOMITING Review of Systems Review of Systems: CONSTITUTIONAL: Denies body aches, fever, chills, or sweats. EYES: Denies visual changes, redness, or discharge. ENT: Denies rhinorrhea, congestion, sore throat, or otalgia. CARDIOVASCULAR: Denies chest pain, palpitations, or edema. RESPIRATORY: Denies cough or dyspnea. GASTROINTESTINAL: Denies abdominal pain, vomiting, or diarrhea.+ nausea GENITOURINARY: Denies dysuria or hematuria. SKIN: Denies rash, itching, or wounds. MUSCULOSKELETAL: Denies back pain, joint pain, or myalgia. NEUROLOGIC: Denies headache, numbness, tingling, or weakness.+ body shaking/muscle spasms PSYCH: Denies depression or anxiety. PMFSH Past Medical History Medical History Anxiety Depression Frequent UTI Herpes simplex 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 Neuropathy Opioid use Vicodin Opioid use Vicodin Opioid use Vicodin Substance abuse On methadone Toenail fungus Surgical History Surgical History H/O: hysterectomy Hx of tonsillectomy Family History Family History Other No significant family history Social History Social History Smoking packs per day: 1 Smoking cigarettes per day: 20.0 Years smoked: 20 Smoking pack-years: 20.00 Smoking status: Current every day smoker Second hand tobacco smoke exposure: Yes Alcohol intake: never Substance use: former Substance use type: painkillers Other substance usage details: Deirdre denies using recreational drugs at this time Living arrangements: with family Occupation/Education: occupation Gender identity (if verbalized by the patient): Female Comments At time of signature, I have reviewed and agree with nursing past medical, surgical, social and family history unless otherwise noted. Please see nursing chart for further information. There is no relevant family history pertinent to the presenting complaint Exam Narrative: GENERAL: Chronically ill-appearing, well-nourished. HEAD: Normocephalic, atraumatic. EYES: EOMI. No redness or drainage. Conjunctivae normal. ENT: Mucous membranes pink and moist. NECK: Normal AROM. CHEST: No respiratory distress. Clear to auscultation. HEART: Regular rate and rhythm. No murmur appreciated. Normal peripheral pulses. EXTREMITIES: Jerking movements of the extremities and trunk, somewhat continuous. SKIN: Warm, dry, no rash. Capillary refill normal. Normal skin turgor. NEURO: No focal deficits. Alert and oriented x3. Gait steady. PSYCH: Tearful, anxious Course Course Level of Care: Express Care Visit Vital Signs Vital signs: Vital Signs Temperature 98.5 F 08/15/23 10:46 Pulse Rate 125 H 08/15/23 10:46 Respiratory Rate 22 H 08/15/23 10:46 Blood Pressure 145/113 H 08/15/23 10:46 Pulse Oximetry 100 08/15/23 10:46 Oxygen Delivery Room Air 08/15/23 10:46 Te
[2023-08-15] MEDS: ONDANSETRON HCL ODT 4 MG TABLET 8 MG SUBLINGUAL (11:06)
[2023-08-15 11:09] VITALS: BP 160/100; PULSE 120
== END 2023-08-15 11:24 | disposition home or self-care (01) ==
PROVIDERS: Emergency Provider Nurse Practitioner
DX: F19.239 Other psychoactive substance dependence with withdrawal, unspecified (principal); F17.210 Nicotine dependence, cigarettes, uncomplicated; F41.9 Anxiety disorder, unspecified; F32.A Depression, unspecified
CPT/HCPCS: 99213; A9270; G0463

== ENCOUNTER 2023-08-21 10:58 | Emergency (ER) | payer OTHER, SELFPAY ==
[2023-08-21] VITALS (7 sets, daily range): BP systolic 124–168; BP diastolic 91–117; PULSE 80–125; RESP 17–20; TEMP 37.1; O2SAT 95–100
--- NOTE | ~2023-08-21 | XR_ITS ---
EXAMINATION: XR chest 1V portable DATE: 08/21/2023 12:16 INDICATION: Infection. TECHNIQUE: A single frontal view of the chest was obtained. COMPARISON: Chest 2 views 12/10/2021 FINDINGS: There is mild scarring at right lung apex. No pleural effusion or pneumothorax. The heart s ize is normal. IMPRESSION: 1. Mild scarring at right lung apex. Reviewed, dictated and finalized at location E.
--- NOTE | ~2023-08-21 | CT_ITS ---
EXAMINATION: CT brain wo con DATE: 08/21/2023 12:47 INDICATION: Tremor. Seizure-like activity. TECHNIQUE: Computed tomography (CT) of the head was performed without intravenous contrast. The mA wa s adjusted according to patient size. Iterative reconstruction technique was employed. The dose-lengt h product was 605.33 mGy-cm. COMPARISON: Head CT 10/15/2020 FINDINGS: There is no intracranial hemorrhage, acute infarction, or abnormal intracranial mass lesion . The ventricles are normal in size. There is mild mucosal thickening in the paranasal sinuses. There are small bilateral mastoid effusions. The orbits are normal. IMPRESSION: 1. Normal brain. Reviewed, dictated and finalized at location E. IMPRESSION: 1. Normal brain.
--- NOTE | 2023-08-21 10:59 | ECG_ITS ---
SEE SCANNED COPY FOR CONFIRMED REPORT MTDD
[2023-08-21 11:29] LABS: Basophils Absolute Auto 0.1 K/mm3 (0.0-0.1); Basophils Percent Auto 0.6 % (0.2-1.2); Eosinophils Absolute Auto 0.4 K/mm3 (0-0.3); Eosinophils Percent Auto 2.2 % (0-4.4); Hematocrit 44.1 % (37.0-47.0); Hemoglobin 15.5 g/dL (12.0-15.0); Immature Granulocyte Absolute 0.11 K/mm3 (0.00-0.031); Immature Granulocyte Percent A 0.6 % (0-0.5); Lymphocytes Absolute Auto 6.81 K/mm3 (0.9-3.2); Lymphocytes Percent Auto 36.1 % (18.3-44.2); Mean Corpuscular HGB Conc 35.1 g/dl (32-36); Mean Corpuscular Hemoglobin 31.2 pg (26-34); Mean Corpuscular Volume 88.7 fl (80-100); Mean Platelet Volume 9.6 fl (7.4-10.4); Monocytes Absolute Auto 1.3 K/mm3 (0.1-0.6); Monocytes Percent Auto 6.7 % (2.6-8.5); Neutrophils Absolute Auto 10.2 K/mm3 (1.3-6.7); Neutrophils Percent Auto 53.8 % (45.5-73.1); Platelet Count Result 471 k/mm3 (150-375); Red Blood Count 4.97 M/mm3 (4.2-5.4); Red Cell Distribution Width 13.2 % (11.5-14.5); White Blood Count 18.9 K/mm3 (4.5-10.0)
--- NOTE | 2023-08-21 11:32 | PC.NURSE ---
Pt reports stopping methadone 2 weeks ago, being clean and not wanting to take it anymore. Reports started feeling anxious last night, took an old prescription for ativan - approx 4+ years old and using marijuana.
[2023-08-21 11:41] LABS: Acetaminophen < 10 ug/mL (10-30); Alanine Aminotransferase 21 U/L (6-35); Alkaline Phosphatase 127 U/L (38-126); Anion Gap 10 mmol/L (4-12); Aspartate Amino Transferase 21 U/L (14-36); Bilirubin,Total 0.6 mg/dL (0.2-1.3); Blood Urea Nitrogen 11 mg/dL (7-17); Calcium 9.7 mg/dL (8.4-10.2); Carbon Dioxide 22 mmol/L (22-30); Chloride 111 mmol/L (98-107); Estimated CRCL calculation 88 ml/min; Estimated Glomerular Filt Rate > 60; Ethanol < 10 mg/dL (<10); Glucose 117 mg/dL (65-110); Potassium 3.9 mmol/L (3.4-5.0); Salicylate < 1.0 mg/dL (2-20); Sodium 143 mmol/L (137-145)
[2023-08-21] MEDS: SODIUM CHLORIDE 0.9% IV 1,000 ML 999 ML IV CONT (11:48)
--- NOTE | 2023-08-21 12:00 | ED.GENADULT ---
HPI - General Adult General Chief complaint: Seizure Stated complaint: seizure Time Seen by Provider: 08/21/23 11:21 History of Present Illness HPI narrative: Patient is a 43-year-old female who presents emergency department this morning due to tremors and concern for panic attack. Patient was initially driving to the emergency department for concern for a panic attack. Patient does have a history of anxiety and does take Ativan. Patient took 0.5 mg of oral Ativan yesterday for anxiety which she states did help her symptoms. Today while driving into the emergency department, patient started to shake and tremor and fat that she might be seizing. Patient does not have any history of seizure disorder. In the emergency department, patient does have intermittent tremors in which she remains alert throughout the entire episode. Patient has never postictal, is currently answering all my questions appropriately and is alert oriented to person, place, time and situation. No additional symptoms or concerns at this time. Related Data Allergies Allergy/AdvReac Type Severity Reaction Status Date / Time Sulfa (Sulfonamide Allergy Nausea and Verified 08/21/23 11:10 Antibiotics) Vomiting Review of Systems Review of Systems: All systems are reviewed and are negative unless stated otherwise in the HPI. Exam Narrative: General: Alert, awake, afebrile, anxious and restless. HEENT: PERRL, no rhinorrhea, no post nasal drip, oropharynx clear. Cardiovascular: Regular rate and rhythm, no murmurs, rubs or gallops, no peripheral edema. Respiratory: Clear to auscultation bilaterally, no tachypnea, no wheezing, no rhonchi, no rubs, no respiratory distress. Abdomen: Soft, nontender, nondistended, no rebound, no guarding, no peritoneal signs. Musculoskeletal: No joint swelling or deformity, normal muscle tone. Skin: No rashes or petechia, no signs of infection. Neurological: Alert and oriented to person, place, and time. Follows all commands. Moving all extremities spontaneously. No focal deficits, speech is clear and fluent. Course Vital Signs Vital signs: Vital Signs Temperature 98.7 F 08/21/23 11:01 Pulse Rate 125 H 08/21/23 11:01 Respiratory Rate 20 08/21/23 11:01 Blood Pressure 168/101 H 08/21/23 11:01 Pulse Oximetry 98 08/21/23 11:01 Oxygen Delivery Room Air 08/21/23 11:01 Temperature 98.7 F 08/21/23 11:01 Pulse Rate 88 08/21/23 14:22 Respiratory Rate 20 08/21/23 14:22 Blood Pressure 131/91 H 08/21/23 14:22 Pulse Oximetry 97 08/21/23 12:52 Oxygen Delivery Room Air 08/21/23 11:13 Medical Decision Making MDM Narrative Medical decision making narrative: The patient was evaluated by myself in the emergency department. History is obtained from patient who is an independent historian and physical exam was performed. External medical records were reviewed at this time. IV was established and pertinent tests were ordered. Patient was administered 1mg of IV Ativan for anxiety. EKG was obtained which revealed sinus tachycardia rate of 100 beats per minute. No ST changes, T wave inversions or evidence of acute ischemia. EKG was independently interpreted by me and is currently pending official cardiology read. Laboratory results obtained revealing no acute process. Urinalysis was unremarkable. Imaging studies obtained included CT brain without IV contrast which was independently interpreted by me revealing no acute process, which is pending final radiology interpretation. Patient is currently medically cleared to be evaluated by our crisis team. Although patient denied any suicidal or homicidal ideations, she did answer yes to all of these suicidal questionnaire in triage. Differential diagnosis considerations include acute anxiety reaction, panic attack, and pseudoseizures. Comorbidities impacting this visit include history of anxiety. I have evaluated and discussed social determin
[2023-08-21] MEDS: LORazepam INJ (*CRX) 2 MG/ML VIAL 1 MG IV PUSH (12:03)
[2023-08-21 12:11] LABS: Thyroid Stimulating Hormone 0.412 uIU/mL (0.465-4.680)
[2023-08-21 12:16] LABS: Influenza A QL RT-PCR Negative (Negative); Influenza B QL RT-PCR Negative (Negative); RSV RNA, RT-PCR Negative (Negative); SARS-CoV-2 RNA PCR Negative (Negative)
--- NOTE | 2023-08-21 12:16 | PC.NURSE ---
Pt is now able to lay still, reports feeling better.
[2023-08-21 12:22] LABS: Creatine Kinase 34 U/L (30-135)
[2023-08-21 12:57] LABS: Appearance Urine Clear (Clear); Bilirubin Urine Negative (Negative); Blood Urine Negative (Negative); Color Urine Yellow (Yellow); Glucose Urine UA Negative (Negative); Ketones Urine Negative (Negative); Leukocyte Esterase Ur Negative LEU/UL (Negative); Nitrate Urine Negative (Negative); Protein Urine Negative (Negative); Specific Grav Ur 1.019 (1.001-1.035); Urobilinogen Urine 0.2 mg/dL (<2.0)
[2023-08-21 13:05] LABS: Add Urine Microscopic? NO
[2023-08-21 13:13] LABS: Amphetamine Screen Urine Negative (Negative); Barbiturate Screen Urine Negative (Negative); Benzodiazepines Screen Urine Negative (Negative); Cannabinoid Screen Urine Negative (Negative); Cocaine Screen Urine Negative (Negative); Methadone Screen Urine Negative (Negative); Opiate Screen Urine Negative (Negative); Phencyclidine Screen Urine Negative (Negative)
--- NOTE | 2023-08-21 13:53 | PC.NURSE ---
declared pt medically clear. Crisis contacted for mental health evaluation.
== END 2023-08-21 15:43 | disposition home or self-care (01) ==
PROVIDERS: Emergency Provider Emergency Medicine; PCP Emergency Medicine
DX: F41.1 Generalized anxiety disorder (principal); Z20.822 Contact with and (suspected) exposure to COVID-19
CPT/HCPCS: 36415; 70450; 71045; 80053; 80307; 81003; 82550; 84443; 85025; 87637; 93005; 96361; 96374; 99284; J2060; J7030

== ENCOUNTER 2023-10-09 11:54 | Emergency (ER) | payer OTHER, SELFPAY ==
--- NOTE | ~2023-10-09 | CT_ITS ---
Noncontrast CT scan of the thoracolumbar spine CLINICAL HISTORY: Back pain TECHNIQUE: Axial noncontrast imaging of the thoracolumbar spine was performed. Sagittal and coronal r eformatted images were constructed. Dose reduction technique was used on this scan by utilizing autom ated exposure control and iterative reconstruction technique. The dose-length product (DLP) was 757.7 2 mGy-cm. FINDINGS: No fracture or subluxation seen in the thoracic spine. Vertebral bodies maintain normal hei ght and alignment. Intervertebral disc spaces are relatively well-preserved with minimal scattered de generative disc changes. No significant disc bulge or herniation seen at any thoracic level. No spinal canal stenosis or cord compression identified. Neural foramina appear preserved. Paravertebral soft tissues are unremarkable. There is probable minimal chronic anterior wedging deformity of L1. No other fracture or sublocation seen in the lumbar spine. Intervertebral disc spaces are well preserved. There is probable disc bulge with associated mild to moderate right neural foraminal narrowing at L5- S1. No other disc bulge or herniation seen. No spinal canal stenosis seen in the lumbar spine. No oth er neural foraminal narrowing evident. Paravertebral soft tissues are unremarkable. Impression: Probable minimal chronic anterior wedging deformity of L1. No acute abnormality evident. Mild degenerative spondylosis at L5-S1, as detailed above. Reviewed, dictated and finalized at [facility]. Impression: Probable minimal chronic anterior wedging deformity of L1. No acute abnormality evident. Mild degenerative spondylosis at L5-S1, as detailed above.
[2023-10-09 12:09] VITALS: BP 134/99; PULSE 119; RESP 18; TEMP 36.3; O2SAT 97
--- NOTE | 2023-10-09 16:41 | ED.BACK ---
HPI - Back Pain/Injury General Chief Complaint: Back Pain/Injury Stated Complaint: back pain Time Seen by Provider: 10/09/23 15:12 History of Present Illness HPI Narrative: 43-year-old female presents to the emergency department for acute on chronic back pain. Patient states she always has back issues . States yesterday she was picking up a chair at work and felt a pop in her back. Since then she has been having pain throughout her upper and mid back and tingling in all of her extremities. No focal numbness. She denies saddle anesthesia, urinary or bowel incontinence. She does report difficulty emptying her bladder and attributes this to difficulty relaxing her pelvic floor due to pain. She denies pain radiating down her legs or arms. She denies abdominal pain, fever, vomiting. Denies history of cancer, use of immunosuppressants, IV drug use, surgeries or procedures performed on her back. Denies dysuria or hematuria. 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 Neuropathy Opioid use Vicodin Opioid use Vicodin Opioid use Vicodin Substance abuse On methadone Toenail fungus Surgical History Surgical History H/O: hysterectomy Hx of tonsillectomy Family History Family History Other No significant family history Social History Social History Smoking packs per day: 1 Smoking cigarettes per day: 20.0 Years smoked: 20 Smoking pack-years: 20.00 Smoking status: Current every day smoker Second hand tobacco smoke exposure: Yes Alcohol intake: never Substance use: former Substance use type: painkillers Other substance usage details: Deirdre denies using recreational drugs at this time Living arrangements: with family Occupation/Education: occupation Gender identity (if verbalized by the patient): Female Exam Narrative: GENERAL: Well-appearing, well-nourished, and in no acute distress. HEAD: Normocephalic, atraumatic. EYES: PERRLA and EOMI. ENT: Nares clear, no rhinorrhea or epistaxis. Mucous membranes moist. NECK: Minimal tenderness throughout her neck including her cervical spine and paraspinous muscles. No step-offs, crepitus or deformities. BACK: Diffuse tenderness throughout her thoracic spine without crepitus, step-offs or deformities. Tenderness throughout the paraspinous muscles. No tenderness to the lumbar spine or paraspinous muscles. No crepitus, step-offs or deformities CHEST: Clear to auscultation. No respiratory distress. HEART: Regular rate and rhythm. No murmur heard. Normal peripheral pulses. ABDOMEN: Soft, nontender, nondistended, normal active bowel sounds. no CVA tenderness. EXTREMITIES: Normal range of motion. No edema. SKIN: Warm, dry, no rash. NEURO: No focal deficits. Alert and oriented x3 . strength out of 5 in BUE and BLE. Sensation intact throughout. No saddle anesthesia. Course Vital Signs Vital signs: Vital Signs Temperature 97.4 F L 10/09/23 12:09 Pulse Rate 119 H 10/09/23 12:09 Respiratory Rate 18 10/09/23 12:09 Blood Pressure 134/99 H 10/09/23 12:09 Pulse Oximetry 97 10/09/23 12:09 Temperature 97.4 F L 10/09/23 12:09 Pulse Rate 119 H 10/09/23 12:09 Respiratory
[2023-10-09 16:53] LABS: Appearance Urine Clear (Clear); Bacteria Urine Rare /hpf; Bilirubin Urine Negative (Negative); Blood Urine Negative (Negative); Color Urine Yellow (Yellow); Glucose Urine UA Negative (Negative); Ketones Urine Negative (Negative); Leukocyte Esterase Ur Trace LEU/UL (Negative); Nitrate Urine Negative (Negative); Non Pathogenic Casts 0-2; Protein Urine Negative (Negative); RBC Urine 0-2 /hpf (0-2); Specific Grav Ur 1.019 (1.001-1.035); Squamous Epithelial Cell Urine Few /hpf (Few); pH Urine 5.5 (5.0-9.0)
[2023-10-09 16:54] LABS: Add Urine Microscopic? YES
[2023-10-09] MEDS: KETOROLAC 30 MG/ML VIAL (*BKC) IM (17:10)
[2023-10-09] MEDS: CYCLOBENZAPRINE HCL 10 MG TABLET PO (17:10)
[2023-10-09] MEDS: ONDANSETRON HCL ODT 4 MG TABLET PO (17:12)
--- NOTE | 2023-10-09 17:17 | PC.NURSE ---
Pt signed AMA at [id number].
== END 2023-10-09 17:17 | disposition left against medical advice (07) ==
PROVIDERS: Emergency Provider Physician Assistant; PCP Emergency Medicine
DX: M54.6 Pain in thoracic spine (principal); M54.2 Cervicalgia; F41.9 Anxiety disorder, unspecified; F32.A Depression, unspecified; F17.210 Nicotine dependence, cigarettes, uncomplicated; Z87.440 Personal history of urinary (tract) infections; Z90.710 Acquired absence of both cervix and uterus; Z79.899 Other long term (current) drug therapy
CPT/HCPCS: 72128; 72131; 81001; 87086; 96372; 99284; A9270; J1885

== ENCOUNTER 2023-10-09 19:37 | Emergency (ER) | payer OTHER, SELFPAY ==
--- NOTE | ~2023-10-09 | CT_ITS ---
Noncontrast CT scan of the cervical spine Technique: Multiple contiguous axial [address] images of the cervical spine were obtained and rec onstructed in 2D sagittal and coronal planes on the acquisition scanner. Dose reduction technique was used on this scan by utilizing automated exposure control, adjustment of the mA and/or kV according to patient size. The dose-length product (DLP) was 351.61 mGy-cm. Clinical History: Pain Findings: No fractures or dislocations. Unremarkable visualized bony structures. The intervertebral disc spaces are preserved. No prevertebral soft tissue swelling. Impression: No fracture or subluxation of the cervical spine. No significant degenerative change evident. Consider follow-up MR for further evaluation of discogeni c disease, as indicated. Reviewed, dictated and finalized at location . Impression: No fracture or subluxation of the cervical spine. No significant degenerative change evident. Consider follow-up MR for further e valuation of discogenic disease, as indicated.
[2023-10-09 19:39] VITALS: BP 127/89; PULSE 102; RESP 20; TEMP 36.7; O2SAT 96
--- NOTE | 2023-10-09 22:51 | PC.NURSE ---
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 patient states that she was here earlier today and was prescribed muscle relaxers and pain medications and wasn't able to pick her prescriptions up.
[2023-10-09] MEDS: dexAMETHasone SOD PHOS INJ 10 MG/ML 1 ML VIAL IM (22:56)
[2023-10-09] MEDS: ONDANSETRON HCL ODT 4 MG TABLET PO (22:56)
[2023-10-09 23:02] VITALS: BP 126/85; PULSE 74; RESP 18; O2SAT 97
--- NOTE | 2023-10-10 00:16 | ED.BACK ---
HPI - Back Pain/Injury General Chief Complaint: Back Pain/Injury Stated Complaint: Back pain Time Seen by Provider: 10/09/23 22:42 History of Present Illness HPI Narrative: 43-year-old female presents to the emergency department for the 2nd time today for back pain and neck pain. Patient was evaluated by myself earlier in the day for diffuse neck pain and back pain after she picked up a chair from off of the floor. She is reporting paresthesias in all of her extremities. Denies focal numbness or weakness, saddle anesthesia, bowel or bladder incontinence or retention, IV drug use, fever, these of immunosuppressants or history of immunocompromise, history of cancer. CT thoracic and lumbar spine were ordered in triage earlier which showed probable minimal chronic anterior wedging deformity of L1, otherwise no acute abnormality detected. The patient has no pain whatsoever to her lumbar spine. At that time the patient was reporting urinary retention and I have recommended we obtain a postvoid bladder scan and CT cervical spine given she had acute tenderness to this region with reported paresthesias in her upper extremities. She left against medical advice at that time. She presents now because she wants to get better . Denies injury or trauma since she was seen a few hours ago. Denies any new neurologic dysfunction or deficit. Related Data Home Medications Medication Instructions Recorded Confirmed sertraline 100 mg tablet 100 mg DIRECTED 08/01/23 08/15/23 Allergies Allergy/AdvReac Type Severity Reaction Status Date / Time Sulfa (Sulfonamide Allergy Unknown RASH, Verified 10/09/23 19:42 Antibiotics) VOMITING Review of Systems Review of Systems: All systems reviewed & are unremarkable except as noted in HPI and below PMFSH Past Medical History Medical History Anxiety Depression Frequent UTI Herpes simplex 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 Neuropathy Opioid use Vicodin Opioid use Vicodin Opioid use Vicodin Substance abuse On methadone Toenail fungus Surgical History Surgical History H/O: hysterectomy Hx of tonsillectomy Family History Family History Other No significant family history Social History Social History Smoking packs per day: 1 Smoking cigarettes per day: 20.0 Years smoked: 20 Smoking pack-years: 20.00 Smoking status: Current every day smoker Second hand tobacco smoke exposure: Yes Alcohol intake: never Substance use: former Substance use type: painkillers Other substance usage details: Deirdre denies using recreational drugs at this time Living arrangements: with family Occupation/Education: occupation Gender identity (if verbalized by the patient): Female Exam Narrative: GENERAL: Well-appearing, well-nourished, and in no acute distress. HEAD: Normocephalic, atraumatic. EYES: PERRLA and EOMI. ENT: Nares clear, no rhinorrhea or epistaxis. Mucous membranes moist. NECK: Tenderness to the cervical spine without crepitus, step-offs or deformities. BACK: Tenderness to the thoracic spine without crepitus, step-offs or deformities. No tenderness to the lumbar spine. CHEST: Clear to auscultation. No respiratory distress. HEART: Regular rate and rhythm. No murmur heard. Normal peripheral pulses. ABDOMEN: Soft, nontender, nondistended, normal active bowel sounds. EXTREMITIES: Normal range of motion. No edema. SKIN: Warm, dry, no rash. NEURO: No focal deficits. Alert and oriented x3 . Strength 5/5 in BUE and BLE. Sensation intact throughout. No saddle anesthesia. Course Vital Signs Vital signs: Vital Signs Temperature 98.0 F 10/09/23 19:39 Pulse Rate 102 H 10/09/23 19:39 Respira
[2023-10-10 00:20] VITALS: BP 110/77; PULSE 72; RESP 18; O2SAT 98
== END 2023-10-10 01:34 | disposition home or self-care (01) ==
PROVIDERS: Emergency Provider Physician Assistant; PCP Emergency Medicine
DX: M54.2 Cervicalgia (principal); M54.6 Pain in thoracic spine; Z87.440 Personal history of urinary (tract) infections; G62.9 Polyneuropathy, unspecified; Z90.710 Acquired absence of both cervix and uterus; F41.9 Anxiety disorder, unspecified; F32.A Depression, unspecified; F17.210 Nicotine dependence, cigarettes, uncomplicated; Z79.899 Other long term (current) drug therapy
CPT/HCPCS: 72125; 72128; 72131; 81001; 87086; 96372; 99284; A9270; J1100; J1885

== ENCOUNTER 2023-12-01 09:26 | Emergency (ER) | payer OTHER, SELFPAY ==
--- NOTE | 2023-12-01 09:57 | PC.NURSE ---
pt andrew, im going somewhere else. ambulated out of ED with steady gait.
== END 2023-12-01 09:30 | disposition left against medical advice (07) ==
LOC: ANHED 10:02
PROVIDERS: PCP Emergency Medicine
DX: Z53.21 Procedure and treatment not carried out due to patient leaving prior to being seen by health care provider (principal)
CPT/HCPCS: 99199

== ENCOUNTER 2024-02-02 09:52 | Outpatient (CLI) | payer OTHER, SELFPAY ==
[2024-02-02 10:33] LABS: Hematocrit 42.8 % (37.0-47.0); Hemoglobin 14.6 g/dL (12.0-15.0); Mean Corpuscular HGB Conc 34.1 g/dl (32-36); Mean Corpuscular Hemoglobin 31.4 pg (26-34); Mean Platelet Volume 9.8 fl (7.4-10.4); Platelet Count Result 362 k/mm3 (150-375); Red Blood Count 4.65 M/mm3 (4.2-5.4); Red Cell Distribution Width 12.9 % (11.5-14.5); White Blood Count 12.4 K/mm3 (4.5-10.0)
[2024-02-02 10:45] LABS: Alanine Aminotransferase 24 U/L (6-35); Albumin Level 4.5 g/dL (3.5-5.1); Alkaline Phosphatase 96 U/L (38-126); Anion Gap 9 mmol/L (4-12); Aspartate Amino Transferase 25 U/L (14-36); Bilirubin,Total 0.7 mg/dL (0.2-1.3); Blood Urea Nitrogen 15 mg/dL (7-17); Calcium 9.6 mg/dL (8.4-10.2); Carbon Dioxide 28 mmol/L (22-30); Chloride 104 mmol/L (98-107); Estimated Glomerular Filt Rate > 60; Glucose 112 mg/dL (65-110); Potassium 4.4 mmol/L (3.4-5.0); Sodium 141 mmol/L (137-145)
== END 2024-02-02 09:53 | disposition home or self-care (01) ==
LOC: ANHLAB 09:57
PROVIDERS: PCP Emergency Medicine; Visit Provider Emergency Medicine
DX: Z00.00 Encounter for general adult medical examination without abnormal findings (principal); R94.5 Abnormal results of liver function studies
CPT/HCPCS: 36415; 80053; 84439; 84443; 85027

== ENCOUNTER 2024-02-02 10:44 | Emergency (ER) | payer OTHER, SELFPAY ==
[2024-02-02 10:54] VITALS: BP 136/97; PULSE 81; RESP 16; TEMP 37; O2SAT 100
[2024-02-02 11:20] VITALS: BP 127/87; PULSE 72; RESP 16; TEMP 36.8; O2SAT 98
[2024-02-02] MEDS: METOCLOPRAMIDE HCL INJ 10 MG/2 ML VIAL IM (11:28)
--- NOTE | 2024-02-02 18:08 | ED_ITS ---
HPI - Weakness General Chief complaint: Weakness Stated complaint: weakness, headache Time Seen by Provider: 02/02/24 11:02 History of Present Illness HPI Narrative: Patient with history of migraines presents here with 1 episode of bright light to her right eye and difficulty seeing, with headache and pressure, her vision has returned completely and her headache is resolving however she just feels exhausted today. Had some blood work done this morning. Related Data Home Medications Medication Instructions Recorded Confirmed sertraline 100 mg tablet 100 mg DIRECTED 08/01/23 08/15/23 Allergies Allergy/AdvReac Type Severity Reaction Status Date / Time Sulfa (Sulfonamide Allergy Unknown RASH, Verified 02/02/24 11:26 Antibiotics) VOMITING Review of Systems Review of Systems: All systems reviewed & are unremarkable except as noted in HPI and below PMFSH Past Medical History Medical History Anxiety Depression Frequent UTI Herpes simplex 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 Neuropathy Opioid use Vicodin Opioid use Vicodin Opioid use Vicodin Substance abuse On methadone Toenail fungus Surgical History Surgical History H/O: hysterectomy Hx of tonsillectomy Family History Family History Other No significant family history Social History Social History Smoking packs per day: 1 Smoking cigarettes per day: 20.0 Years smoked: 20 Smoking pack-years: 20.00 Smoking status: Current every day smoker Second hand tobacco smoke exposure: Yes Alcohol intake: never Substance use: former Substance use type: painkillers Other substance usage details: Deirdre denies using recreational drugs at this time Living arrangements: with family Occupation/Education: occupation Gender identity (if verbalized by the patient): Female Exam Narrative: EXAMINATION OF ORGAN SYSTEMS/BODY AREAS: Constitutional: Vital signs per nursing GENERAL:[No acute distress, non-toxic appearing.] HEAD: Normal with no signs of head trauma. EYES: EOMI, conjunctiva normal, PERRL ENT: Hearing grossly intact LUNGS: Nonlabored breathing. HEART: [Regular rate and rhythm] ABD: [Soft], [nontender to palpation] EXT: Normal range of motion SKIN: [No rashes or lesions.] NEURO: [Alert and oriented x 3. No gross focal sensory or strength deficits. Clear speech, normal gait] PSYCH: Normal affect Course Vital Signs Vital signs: Vital Signs Temperature 98.6 F 02/02/24 10:54 Pulse Rate 81 02/02/24 10:54 Respiratory Rate 16 02/02/24 10:54 Blood Pressure 136/97 H 02/02/24 10:54 Pulse Oximetry 100 02/02/24 10:54 Oxygen Delivery Room Air 02/02/24 10:54 Temperature 98.2 F 02/02/24 11:20 Pulse Rate 72 02/02/24 11:20 Respiratory Rate 16 02/02/24 11:20 Blood Pressure 127/87 02/02/24 11:20 Pulse Oximetry 98 02/02/24 11:20 Oxygen Delivery Room Air 02/02/24 11:20 MDM - Weakness MDM Narrative Medical decision making narrative: 43-year-old female presents to the emergency department for headache and fatigue . Patient is hemodynamically stable. No focal neurological or cranial nerve deficits on exam. No meningeal signs. The headache was gradual in onset, it is not exertional and does not appear consistent with subarachnoid hemorrhage or intracranial bleeding. No trauma. Per her description of her vision symptoms, I suspect most likely retinal migraine given her history of migraines. Patient is given Reglan. On reevaluation, the patient feels significantly better with the headache resolved. She had labs done this morning that were baseline/improved from her prior labs. No neurological deficits. Patient is comfortable going home for outpatient follow-up with primary care physician and/or neurology and provided with strict return precautions, especially for worsening headaches, neck pain/stiffness, fever or weakness, numbness/tingling or persistent vomiting Discharge Plan Discharge Clinical Impression: Ocular migraine Patient Disposition: Home, Self-Care Condition: Stable Instructions: Fatigue (ED), Ocular Migraine (ED) Additional Instructions: Please follow up with your doctor; you can always return for any further issues. Prescriptions: No Action hydroxyzine HCl 25 mg tablet 25 mg PO TID PRN (Reason: anxiety) Qty: 20 0RF cyclobenzaprine 10 mg tablet 10 mg PO TID PRN (Reason: muscle spasm) Qty: 20 0RF ondansetron 8 mg tablet,disintegrating 8 mg PO Q4-6H PRN (Reason: nausea and vomiting) Qty: 20 0RF sertraline 100 mg tablet 100 mg DIRECTED cetirizine [Zyrtec] 10 mg tablet 10 mg PO DAILY 60 Days Qty: 60 0RF amoxicillin-pot clavulanate 875-125 mg tablet 1 tablet PO Q12H 7 Days Qty: 14 0RF lorazepam 0.5 mg tablet 0.5 mg PO DAILY PRN (Reason: anxiety) Qty: 10 0RF cyclobenzaprine 10 mg tablet 10 mg PO TID PRN (Reason: muscle spasm) Qty: 20 0RF ibuprofen 800 mg tablet 800 mg PO TID PRN (Reason: pain) Qty: 20 0RF lidocaine 5 % adhesive patch,medicated 1 patch topical DAILY Qty: 15 0RF Rx Instructions: leave on most painful area for up to 12 hrs. do not use more than 1 patch in a 24-hour period. Follow-up/Referrals: Romero Payne MD [Primary Care Provider] - 2 Days Stand Alone Forms: Work/School Release IP
== END 2024-02-02 12:30 | disposition home or self-care (01) ==
LOC: ANHED 12:11
PROVIDERS: Emergency Provider Emergency Medicine; PCP Emergency Medicine
DX: G43.109 Migraine with aura, not intractable, without status migrainosus (principal); G62.9 Polyneuropathy, unspecified; F32.A Depression, unspecified; F41.9 Anxiety disorder, unspecified; F17.210 Nicotine dependence, cigarettes, uncomplicated; Z87.440 Personal history of urinary (tract) infections; Z90.710 Acquired absence of both cervix and uterus; Z79.899 Other long term (current) drug therapy
CPT/HCPCS: 96372; 99283; J2765

== ENCOUNTER 2024-02-21 10:21 | Emergency (ER) | payer OTHER, SELFPAY ==
[2024-02-21 10:28] VITALS: BP 127/90; PULSE 79; RESP 19; TEMP 37; O2SAT 100
--- NOTE | 2024-02-21 10:49 | ED_ITS ---
HPI - URI/Sore Throat General Chief Complaint: Upper Respiratory Infection Stated Complaint: Fever/Cough Time Seen by Provider: 02/21/24 10:45 Source: patient Mode of arrival: ambulatory Limitations: no limitations History of Present Illness HPI Narrative: Deirdre is a 43-year-old female patient presenting to the clinic today with complaints of runny nose, cough, and sore throat x3 days. She denies any fever, chills, or body aches. Has had exposure to COVID. Denies any chest pain or shortness of breath. MD elicited complaint: sore throat and nasal congestion Related Data Home Medications Medication Instructions Recorded Confirmed sertraline 100 mg tablet 100 mg DIRECTED 08/01/23 02/21/24 Allergies Allergy/AdvReac Type Severity Reaction Status Date / Time Sulfa (Sulfonamide Allergy Unknown RASH, Verified 02/21/24 10:55 Antibiotics) VOMITING Review of Systems Review of Systems: Pertinent positives per HPI. Patient denies any fever, chills, rash, headache, visual changes, dizziness, shortness of breath, chest pain, palpitations, nausea, vomiting, diarrhea, constipation, abdominal pain, or any urinary issues. 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 Neuropathy Opioid use Vicodin Opioid use Vicodin Opioid use Vicodin Substance abuse On methadone Toenail fungus Surgical History Surgical History H/O: hysterectomy Hx of tonsillectomy Family History Family History Other No significant family history Social History Social History Smoking packs per day: 1 Smoking cigarettes per day: 20.0 Years smoked: 20 Smoking pack-years: 20.00 Smoking status: Current every day smoker Second hand tobacco smoke exposure: Yes Alcohol intake: never Substance use: former Substance use type: painkillers Other substance usage details: Deirdre denies using recreational drugs at this time Living arrangements: with family Occupation/Education: occupation Gender identity (if verbalized by the patient): Female Comments At the time of my signature, I reviewed and agree with the nursing past medical, surgical, social, and family history. There is no relevant family history pertinent to the patient complaint. Exam Narrative: General: Well-developed, well nourished, in no apparent distress Head: Normocephalic, atraumatic Eyes: Pupils equally round and reactive to light bilaterally, EOM intact, sclera and conjunctive clear, no discharge, lids normal Ears: TMs intact and clear, ear canals clear, no drainage, grossly hearing normal. Nose: Nares patent, clear nasal discharge, no inflammation, no sinus tenderness. Mouth: Oral pharynx red with bilateral tonsillar enlargement without lesions or masses, good dentition, MMM. Neck: Supple, trachea midline, no enlargement of anterior or posterior cervical nodes, no thyroid masses or goiter palpable. Cardio: Regular rate and rhythm, s1 and s2 normal, no murmur appreciated. Resp: Clear to auscultation bilaterally, no rhonchi, rales, wheezing or rubs Course Course Emergency Course: Portions of this record may have been created with voice recognition software. Level of Care: Express Care Visit Vital Signs Vital signs: Vital Signs Temperature 37.0 C 02/21/24 10:28 Pulse Rate 79 02/21/24 10:28 Respiratory Rate 19 02/21/24 10:28 Blood Pressure 127/90 02/21/24 10:28 Pulse Oximetry 100 02/21/24 10:28 Oxygen Delivery Room Air 02/21/24 10:28 Temperature 37.0 C 02/21/24 10:28 Pulse Rate 79 02/21/24 10:28 Respiratory Rate 19 02/21/24 10:28 Blood Pressure 127/90 02/21/24 10:28 Pulse Oximetry 100 02/21/24 10:28 Oxygen Delivery Room Air 02/21/24 10:28 Vital signs reviewed MDM - URI/Sore Throat MDM Narrative Medical decision making narrative: At the time of visit patient is resting comfortably on the exam table. Patient appears to be nontoxic. Labs: COVID, influenza, and strep test were performed and testing was negative. We will send strep for culture. Plan: I suspect patient has viral URI/pharyngitis. Supportive measures were discussed with the patient and they voiced understanding discharge instructions and agrees to treatment plan. Return precautions reviewed Differential Diagnosis Differential diagnosis: Likely upper respiratory infection, otitis media, sinusitis, viral infection, bronchitis, influenza, pharyngitis and other (COVID) Lab Data Labs: Lab Results 02/21/24 Range/Units 11:08 POC Influenza A Ag Negative (Negative) POC Influenza B Ag Negative (Negative) POC SARS CoV-2 Ag Negative (Negative) POC Grp A Strep Screen Negative (Negative) Discharge Plan Discharge Clinical Impression: URI (upper respiratory infection) Qualifiers: URI type: unspecified URI Qualified Code(s): J06.9 - Acute upper respiratory infection, unspecified Pharyngitis Qualifiers: Pharyngitis/tonsillitis etiology: unspecified etiology Qualified Code(s): J02.9 - Acute pharyngitis, unspecified Patient Disposition: Home, Self-Care Condition: Stable Instructions: Antibiotic Form, Pharyngitis (ED), Cold Symptoms (ED) Additional Instructions: COVID, influenza, and strep test were all negative. We will send strep for culture. May take DayQuil/NyQuil for cold/flu symptoms Increase fluids and stay well hydrated Tylenol/motrin for pain/fever Flonase and OTC antihistamines as directed Vicks vapor rub to open sinuses Sinus rinses for congestion Cepacol spray, cough drops, throat lozenges, warm tea with honey/lemon, gargle salt water to soothe throat BRAT diet for diarrhea Clear liquids x 24 hours then advance as tolerated for nausea/vomiting Go to the ED if you develop a worsening in your condition- high fever not controlled by Tylenol or Motrin, dehydration, weakness, lethargy, shortness of breath, or chest pain. Follow up with your PCP in 3-5 days if symptoms persist. Prescriptions: New fluticasone propionate [Flonase Allergy Relief] 50 mcg/actuation spray,suspension 1 spray intranasal DAILY 30 Days Qty: 16 0RF Rx Instructions: administer into each nostril No Action hydroxyzine HCl 25 mg tablet 25 mg PO TID PRN (Reason: anxiety) Qty: 20 0RF cyclobenzaprine 10 mg tablet 10 mg PO TID PRN (Reason: muscle spasm) Qty: 20 0RF sertraline 100 mg tablet 100 mg DIRECTED cetirizine [Zyrtec] 10 mg tablet 10 mg PO DAILY 60 Days Qty: 60 0RF lorazepam 0.5 mg tablet 0.5 mg PO DAILY PRN (Reason: anxiety) Qty: 10 0RF ibuprofen 800 mg tablet 800 mg PO TID PRN (Reason: pain) Qty: 20 0RF lidocaine 5 % adhesive patch,medicated 1 patch topical DAILY Qty: 15 0RF Rx Instructions: leave on most painful area for up to 12 hrs. do not use more than 1 patch in a 24-hour period. Follow-up/Referrals: Romero Payne MD [Primary Care Provider] - Time of Disposition: 11:18 Quality NIHSS Nursing Documentation ED NIHSS nursing documentation: reviewed/agree
[2024-02-21 11:11] LABS: EDCOVIDSCREEN Negative (Negative); EDINFLUASCREEN Negative (Negative); EDINFLUBSCREEN Negative (Negative); EDSTREPNEGPOS1 Negative (Negative)
== END 2024-02-21 11:22 | disposition home or self-care (01) ==
PROVIDERS: Emergency Provider Nurse Practitioner Family; PCP Emergency Medicine
DX: J06.9 Acute upper respiratory infection, unspecified (principal); J02.9 Acute pharyngitis, unspecified; Z20.822 Contact with and (suspected) exposure to COVID-19; F17.210 Nicotine dependence, cigarettes, uncomplicated; F41.9 Anxiety disorder, unspecified; F32.A Depression, unspecified
CPT/HCPCS: 87081; 87426; 87804; 87880; 99213; G0463

== ENCOUNTER 2024-02-27 09:58 | Emergency (ER) | payer OTHER, SELFPAY ==
[2024-02-27 10:06] VITALS: BP 105/80; PULSE 78; RESP 19; TEMP 36.8; O2SAT 99
--- NOTE | 2024-02-27 10:19 | ED.URI ---
HPI - URI/Sore Throat General Chief Complaint: Upper Respiratory Infection Stated Complaint: Sinus Time Seen by Provider: 02/27/24 10:19 Source: patient, RN notes reviewed and old records reviewed Mode of arrival: ambulatory Limitations: no limitations History of Present Illness HPI Narrative: 43-year-old female presents to the [facility] with complaints of continued symptoms of sinus congestion, pain pressure. Was evaluated on the 20 of February, 6 days ago. Sx now 9 days according to previous medical record Onset (ago): day(s) (9) Treatments prior to arrival: other ( everything. ) Related Data Allergies Allergy/AdvReac Type Severity Reaction Status Date / Time Sulfa (Sulfonamide Allergy Unknown RASH, Verified 02/21/24 10:55 Antibiotics) VOMITING Review of Systems Review of Systems: All systems reviewed & are unremarkable except as noted in HPI and below Constitutional: Constitutional: Reports no additional constitutional complaints ENT: Reports as per HPI Cardiovascular: Cardiovascular: Reports no additional cardiovascular complaints, Denies chest pain and Denies dyspnea Respiratory: Respiratory: Reports as per HPI, Denies chest congestion, Reports cough and Denies dyspnea Gastrointestinal: Gastrointestinal: Reports no additional gastrointestinal complaints, Denies abdominal pain, Denies nausea and Denies vomiting Musculoskeletal: Musculoskeletal: Reports no additional musculoskeletal complaints Integumentary/Breasts: Skin/Breast: Reports system reviewed and no additional complaints, except as docu PMFSH Past Medical History Medical History Anxiety Depression Frequent UTI Herpes simplex 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 Neuropathy Opioid use Vicodin Opioid use Vicodin Opioid use Vicodin Substance abuse On methadone Toenail fungus Surgical History Surgical History H/O: hysterectomy Hx of tonsillectomy Family History Family History Other No significant family history Social History Social History Smoking packs per day: 1 Smoking cigarettes per day: 20.0 Years smoked: 20 Smoking pack-years: 20.00 Smoking status: Current every day smoker Second hand tobacco smoke exposure: Yes Alcohol intake: never Substance use: former Substance use type: painkillers Other substance usage details: Deirdre denies using recreational drugs at this time Living arrangements: with family Occupation/Education: occupation Gender identity (if verbalized by the patient): Female Comments At the time of my signature, I reviewed and agree with the nursing past medical, surgical, social, and family history. There is no relevant family history pertinent to the patient complaint. Exam Const: General: cooperative, healthy appearing, comfortable, no acute distress, well developed, alert and well nourished Nutritional Appearance: well nourished Orientation/consciousness: patient oriented x3 Limitations: no limitations HENMT: Head: normal to inspection Ears: hearing grossly normal bilaterally, external ears normal, TM's normal bilaterally, EAC's normal, mastoids normal and no periauricular adenopathy Face/Nose/Sinus: Normal external nose present, normal facial exam and face symmetric Face and sinus: normal facial exam and face symmetric Mouth: Yes Normal oral and palatal mucosa present, Yes lip normal and Yes tongue normal Throat: posterior oropharynx normal, uvula midline and no uvular edema Eyes: General: appearance normal, both eyes and all related structures Alignment and Position: alignment normal Periorbital: periorbital findings normal Neck: Neck: normal visual inspection, full ROM, no lymphadenopathy and no meningeal signs Chest: Chest palpation & inspection: normal inspection of the chest Resp: Effort & Inspection: normal respiratory effort and able to speak in complete sentences Auscultation: no crackles, no rales, no rhonchi and wheezes expiratory wheezes and throughout Cardio: Rate: regular rate Skin: General skin exam: normal color and no rashes or lesions noted Lesions: no lesions Rashes: no rashes Wounds: no wounds Neuro: General: patient oriented x3, gait normal, tone normal, moves all extremities and no meningeal signs Cognition (Neuro): normal cognition Speech: normal speech Gait exam (Neuro): Normal gait present Extrem: General: normal to inspection, full ROM, capillary refill normal and normal gait Psych: Appearance: grossly normal and well kempt Mental Status: mental status grossly normal Speech and movement: Normal speech and movement present and Clear speech present Affect: normal affect Attitude: cooperative Course Course Level of Care: Express Care Visit Vital Signs Vital signs: Vital Signs Temperature 98.2 F 02/27/24 10:06 Pulse Rate 78 02/27/24 10:06 Respiratory Rate 19 02/27/24 10:06 Blood Pressure 105/80 02/27/24 10:06 Pulse Oximetry 99 02/27/24 10:06 Oxygen Delivery Room Air 02/27/24 10:06 Temperature 98.2 F 02/27/24 10:06 Pulse Rate 78 02/27/24 10:06 Respiratory Rate 19 02/27/24 10:06 Blood Pressure 105/80 02/27/24 10:06 Pulse Oximetry 99 02/27/24 10:06 Oxygen Delivery Room Air 02/27/24 10:06 Reviewed MDM - URI/Sore Throat MDM Narrative Medical decision making narrative: Patient sitting comfortably in exam room. Nontoxic, vitals stable. Patient in no acute distress Patient presents with ongoing symptoms now times time days, was seen less than 1 week ago. Patient now wheezing throughout, prescribed inhaler. Will prescribe doxycycline, patient is a smoker Patient appropriate for outpatient treatment and follow-up Discharge instructions reviewed with patient, as well as provided in writing per nursing staff. The instructions also include specific and strict return/GO TO THE ER as well as f/u information. All questions have been answered, and the patient deny any further questions with discharge and discharge plan. Some parts of this dictation were generated by voice recognition software and may contain typographical and/or grammatical inaccuracies. Differential Diagnosis Differential diagnosis: Likely upper respiratory infection, otitis media, sinusitis, viral infection and bronchitis Critical Care Time Critical Care Time Critical Care Time: No Discharge Plan Discharge Clinical Impression: Bronchitis Sinusitis Qualifiers: Sinusitis location: pansinusitis Chronicity: acute Recurrence: not specified as recurrent Qualified Code(s): J01.40 - Acute pansinusitis, unspecified Patient Disposition: Home, Self-Care Condition: Stable Instructions: Antibiotic Form, Sinusitis (ED), Acute Bronchitis (ED) Additional Instructions: Stop smoking It is very important to treat your symptoms. Plenty of water, Gatorade, Pedialyte, ice pops or Jell-O. -Alternate Tylenol and Motrin per package directions for fever or pain. You can alternate every 4 hours -Antihistamine medication such as Benadryl at night and Zyrtec/Claritin/Theresa during the day can help improve symptoms. -doing daily nasal irrigations can help relieve pressure your sinuses. Things like a Neti pot -Use Flonase twice a day for 5 days then daily to help reduce the inflammation and dry up your sinuses. -You can also use Mucinex. Be sure to drink plenty of water with this medication at least 8 ounces with every dose and it is important to drink 8 to 10 glasses of water per day. Water is a natural decongestant -Eat and drink things that are easy to swallow, like tea or soup, or popsicles. -Oral rinses such as: Salt water gargles and/or may use topical anesthetic (eg. Chloraseptic spray) or lozenges to relieve dryness or throat pain). -Frequent hand washing or hand lost charge card clerk is one of the best ways to prevent spread of infection. -Using a vaporizer or humidifier at night will also help thin secretions and help with coughing up phlegm. -Follow up with primary care provider in 7-10 days if condition is not improving - For new or worsening symptoms go directly to the nearest ER Patient Language: American Prescriptions: New albuterol sulfate 90 mcg/actuation HFA aerosol inhaler 2 puff inhalation QID PRN (Reason: shortness of breath or wheezing) Qty: 6.7 0RF (DME) Aerochamber MV Spacer See Rx Instructions .Route Qty: 1 0RF Rx Instructions: As directed doxycycline monohydrate 100 mg tablet 100 mg PO BID Qty: 14 0RF Follow-up/Referrals: Romero Payne MD [Primary Care Provider] - 1 Week (express care follow up ) Stand Alone Forms: Work/School Release IP Time of Disposition: 10:52
== END 2024-02-27 10:58 | disposition home or self-care (01) ==
PROVIDERS: Emergency Provider Nurse Practitioner; PCP Emergency Medicine
DX: J40 Bronchitis, not specified as acute or chronic (principal); J01.40 Acute pansinusitis, unspecified; F17.210 Nicotine dependence, cigarettes, uncomplicated
CPT/HCPCS: 99213; G0463

== ENCOUNTER 2024-04-15 11:29 | Emergency (ER) | payer OTHER, SELFPAY ==
--- NOTE | 2024-04-15 11:31 | ED.EYEPROB ---
HPI - Eye Problem General Chief complaint: Eye Problems Stated complaint: Eyes Irritation Time Seen by Provider: 04/15/24 11:30 Source: patient Mode of arrival: ambulatory Limitations: no limitations History of Present Illness HPI Narrative: Deirdre is a 43-year-old female patient presenting to the clinic today with complaints of right eye irritation, itchiness, and drainage. Feels as though there may be something in her eye. She reports her symptoms just started this morning. No no known sick contacts. Denies any fevers, chills, body aches. Does have some slight nasal congestion. Noticed yellow discharge the right eye Related Data Allergies Allergy/AdvReac Type Severity Reaction Status Date / Time Sulfa (Sulfonamide Allergy Unknown RASH, Verified 04/15/24 11:54 Antibiotics) VOMITING Review of Systems Review of Systems: Pertinent positives per HPI. Patient denies any fever, chills, rash, headache, visual changes, dizziness, cough, sore throat, shortness of breath, chest pain, palpitations, nausea, vomiting, diarrhea, constipation, abdominal pain, or any urinary issues. PMFSH Past Medical History Medical History Methadone dependence Opioid use Vicodin Frequent UTI Methadone dependence Opioid use Vicodin Methadone dependence Opioid use Vicodin Toenail fungus Neuropathy Substance abuse On methadone Anxiety Depression Herpes simplex Surgical History Surgical History H/O: hysterectomy Hx of tonsillectomy Family History Family History Other No significant family history Social History Social History Smoking packs per day: 1 Smoking cigarettes per day: 20.0 Years smoked: 20 Smoking pack-years: 20.00 Smoking status: Current every day smoker Second hand tobacco smoke exposure: Yes Alcohol intake: never Substance use: former Substance use type: painkillers Other substance usage details: Deirdre denies using recreational drugs at this time Living arrangements: with family Occupation/Education: occupation Gender identity (if verbalized by the patient): Female Comments At the time of my signature, I reviewed and agree with the nursing past medical, surgical, social, and family history. There is no relevant family history pertinent to the patient complaint. Exam Narrative: General: Well-developed, well nourished, in no apparent distress Head: Normocephalic, atraumatic Eyes: Pupils equally round and reactive to light bilaterally, EOM intact, left sclera and conjunctive clear, no discharge, lids normal, right sclera conjunctiva and injected, yellow discharge with mild lid swelling and redness Ears: TMs intact and clear, ear canals clear, no drainage, grossly hearing normal. Nose: Nares patent, no discharge, no inflammation, no sinus tenderness. Mouth: Oropharynx without lesions or masses, good dentition, MMM. Neck: Supple, trachea midline, no enlargement of anterior or posterior cervical nodes, no thyroid masses or goiter palpable. Cardio: Regular rate and rhythm, s1 and s2 normal, no murmur appreciated. Resp: Clear to auscultation bilaterally anteriorly and posteriorly, no rhonchi, rales, wheezing or rubs Course Course Emergency Course: Portions of this record may have been created with voice recognition software. Level of Care: Express Care Visit Vital Signs Vital signs: Vital Signs Temperature 36.7 C 04/15/24 11:40 Pulse Rate 75 04/15/24 11:40 Respiratory Rate 16 04/15/24 11:40 Blood Pressure 128/78 04/15/24 11:40 Pulse Oximetry 98 04/15/24 11:40 Oxygen Delivery Room Air 04/15/24 11:40 Temperature 36.7 C 04/15/24 11:40 Pulse Rate 75 04/15/24 11:40 Respiratory Rate 16 04/15/24 11:40 Blood Pressure 128/78 04/15/24 11:40 Pulse Oximetry 98 04/15/24 11:40 Oxygen Delivery Room Air 04/15/24 11:40 Vital signs reviewed Procedures Other Procedure Procedure 1: Other Procedure: One drop topical tetracaine anesthetic was instilled with good anesthesia. Fluorescein stain of the right eye was performed without uptake of dye. No epithelial defect was noted. NO FB, ulcer or dendritic lesions. Upper lid was everted and no FB or lesions were noted. NO Jacinto sign. Normal saline irrigation eye solution was performed and the patient tolerated the procedure well, no adverse reaction or complications. MDM - Eye Problem MDM Narrative Medical decision making narrative: At the time of visit patient is resting comfortably on the exam table. Patient appears to be nontoxic. Procedures: Wood's lamp exam was performed and shows no sign of corneal abrasion or Jacinto sign. No foreign body visualized Plan: I suspect patient has conjunctivitis of the right eye. Prescription for tobramycin eyedrops was sent to the pharmacy. Supportive measures were discussed with the patient and they voiced understanding discharge instructions and agrees to treatment plan. Return precautions reviewed Differential Diagnosis Differential diagnosis: Likely corneal abrasion, conjunctivitis, acute iritis, hyphema, periorbital cellulitis, subconjunctival hemorrhage, glaucoma, corneal ulcer and ruptured globe Discharge Plan Discharge Clinical Impression: Conjunctivitis Qualifiers: Conjunctivitis type: acute Acute conjunctivitis type: unspecified Laterality: right Qualified Code(s): H10.31 - Unspecified acute conjunctivitis, right eye Patient Disposition: Home, Self-Care Condition: Stable Instructions: Antibiotic Form, Conjunctivitis (ED) Additional Instructions: Conjunctivitis is considered contagious for 24 hours while on the antibiotic. Practice good hand washing techniques Avoid touching eyes Instill eyedrops as prescribed-tobramycin May use warm moist washcloth to help remove eye discharge If eyes are matted shut-do not pry eyes open-use a warm moist cloth to loosen matting and wipe matter away from eye May take Tylenol/Motrin as needed for pain or fever May take Benadryl as needed for itching Follow-up with your PCP in 3-5 days if symptoms persist or sooner if they worsen Go to the emergency room if you develop any fever that is not controlled by Tylenol or Motrin, loss of vision, eye pain, increase eye swelling,visual changes, headache, confusion, lethargy, weakness, chest pain, or shortness of breath. Patient Language: Malagasy Prescriptions: New tobramycin 0.3 % drops 1 drp RIGHT EYE Q4H 7 Days Qty: 5 0RF Follow-up/Referrals: Romero Payne MD [Primary Care Provider] - Stand Alone Forms: Work/School Release IP Time of Disposition: 12:13 Quality NIHSS Nursing Documentation ED NIHSS nursing documentation: reviewed/agree
[2024-04-15 11:40] VITALS: BP 128/78; PULSE 75; RESP 16; TEMP 36.7; O2SAT 98
[2024-04-15] MEDS: DACRIOSE EYE IRRIGATION 118 ML BOTTLE RIGHT EYE (11:56)
[2024-04-15] MEDS: FLUORESCEIN SOD 1 MG/STRIP RIGHT EYE (11:56)
[2024-04-15] MEDS: TETRACAINE HCL 0.5% OPHTH SOLN 4 ML BTL RIGHT EYE (11:57)
== END 2024-04-15 12:25 | disposition home or self-care (01) ==
PROVIDERS: Emergency Provider Nurse Practitioner Family; PCP Emergency Medicine
DX: H10.31 Unspecified acute conjunctivitis, right eye (principal); F17.210 Nicotine dependence, cigarettes, uncomplicated
CPT/HCPCS: 99213; A9270; G0463

== ENCOUNTER 2024-04-17 23:52 | Emergency (ER) | payer OTHER, SELFPAY ==
[2024-04-18 00:08] VITALS: BP 140/96; PULSE 95; RESP 14; TEMP 36.6; O2SAT 100
--- NOTE | 2024-04-18 00:32 | ED_ITS ---
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 Reports recent unprotected sex. Concerned for STD. Denies rashes, dysuria. Related Data Allergies Allergy/AdvReac Type Severity Reaction Status Date / Time Sulfa (Sulfonamide Allergy Unknown RASH, Verified 04/15/24 11:54 Antibiotics) VOMITING Review of Systems Review of Systems: CONSTITUTIONAL: Denies fever GENITOURINARY: Denies dysuria SKIN: Denies rash All systems reviewed & are unremarkable except as noted in HPI and below PMFSH Past Medical History Medical History Methadone dependence Opioid use Vicodin Frequent UTI Methadone dependence Opioid use Vicodin Methadone dependence Opioid use Vicodin Toenail fungus Neuropathy Substance abuse On methadone Anxiety Depression Herpes simplex Surgical History Surgical History H/O: hysterectomy Hx of tonsillectomy Family History Family History Other No significant family history Social History Social History Smoking packs per day: 1 Smoking cigarettes per day: 20.0 Years smoked: 20 Smoking pack-years: 20.00 Smoking status: Current every day smoker Second hand tobacco smoke exposure: Yes Alcohol intake: never Substance use: former Substance use type: painkillers Other substance usage details: Deirdre denies using recreational drugs at this time Living arrangements: with family Occupation/Education: occupation Gender identity (if verbalized by the patient): Female Exam Narrative: GENERAL: Well-appearing, well-nourished, and in no acute distress. HEAD: Normocephalic, atraumatic. EYES: EOMI. EXTREMITIES: Normal range of motion. No edema. SKIN: Warm, dry, no rash. NEURO: No focal deficits. Alert and oriented x3. PSYCH: Normal mood and affect PELVIC: Normal external genitalia. Scant amount of yellow discharge in the vaginal vault Course Course Emergency Course: Patient updated on her workup and agrees with of care Vital Signs Vital signs: Vital Signs Temperature 98 F 04/18/24 00:08 Pulse Rate 95 04/18/24 00:08 Respiratory Rate 14 04/18/24 00:08 Blood Pressure 140/96 H 04/18/24 00:08 Pulse Oximetry 100 04/18/24 00:08 Oxygen Delivery Room Air 04/18/24 00:08 Temperature 98 F 04/18/24 00:08 Pulse Rate 95 04/18/24 00:08 Respiratory Rate 14 04/18/24 00:08 Blood Pressure 140/96 H 04/18/24 00:08 Pulse Oximetry 100 04/18/24 00:08 Oxygen Delivery Room Air 04/18/24 00:08 MDM - Female Genitourinary MDM Narrative Medical decision making narrative: Patient presents to the department for abnormal discharge and itching. Urine with possible evidence of infection. This will be sent for culture. Patient will be started on oral antibiotics. Given a dose of fluconazole in the ER. Trichomonas, gonorrhea and chlamydia are negative. Patient was updated on her workup and agrees with plan of care. She is to follow up with primary provider. She was given warnings to return to the ER Differential Diagnosis Differential diagnosis: Likely bacterial vaginosis, trichomoniasis, vaginitis and cystitis Lab Data Attestation: I reviewed the patient's lab results. Labs: Lab Results 04/18/24 04/18/24 Range/Units 00:30 00:51 Urine Color Yellow (Yellow) Urine Appearance Cloudy H (Clear) Urine pH 7.0 (5.0-9.0) Ur Specific [place] 1.017 (1.001-1.035) Urine Protein Negative (Negative) mg/dL Urine Glucose (UA) Negative (Negative) mg/dL Urine Ketones Negative (Negative) mg/dL Ur Blood (Man) Negative (Negative) Urine Nitrate Negative (Negative) Urine Bilirubin Negative (Negative) Urine Urobilinogen 0.2 (<2.0) mg/dL Leukocyte Esterase Rfl 2+ H (Negative) CARITO/UL Urine RBC 0-2 (0-2) /hpf Urine WBC 11-20 H (0-3) /hpf Ur Squamous Epith Cells None seen (Few) /hpf Urine Bacteria None seen /hpf Urine Casts 0-2 POC Urine HCG, Qual Negative (Negative) C. trachomatis (PCR) Not detected (NOT DETECTE) N. gonorrhoeae (PCR) Not detected (NOT DETECTE) T. vaginalis (PCR) Not detected (NOT DETECTE) Critical Care Time Critical Care Time Critical Care Time: No Discharge Plan Discharge Clinical Impression: Acute UTI Patient Disposition: Home, Self-Care Condition: Stable Instructions: Antibiotic Form, Urinary Tract Infection in Women (ED) Additional Instructions: Return to the ER if you experience fever, abdominal pain with nausea and vomiting, you are unable to keep down liquids or solids, blood in the stool, pain or burning with urination, blood in the urine or any other symptoms that are concerning to you Small, frequent meals. [place] diet. Remain well hydrated Follow up with primary care doctor Patient Language: Nepali Prescriptions: New cefdinir 300 mg capsule 300 mg PO Q12H 5 Days Qty: 10 0RF No Action tobramycin 0.3 % drops 1 drp RIGHT EYE Q4H 7 Days Qty: 5 0RF Follow-up/Referrals: Romero Payne MD [Primary Care Provider] -
[2024-04-18 00:53] LABS: BEDSIDEPREGUCG Negative (Negative)
[2024-04-18 01:42] LABS: Add Urine Microscopic? YES; Appearance Urine Cloudy (Clear); Bacteria Urine None Seen /hpf; Bilirubin Urine Negative (Negative); Blood Urine Negative (Negative); Color Urine Yellow (Yellow); Glucose Urine UA Negative (Negative); Ketones Urine Negative (Negative); Leukocyte Esterase Ur 2+ LEU/UL (Negative); Nitrate Urine Negative (Negative); Non Pathogenic Casts 0-2; Protein Urine Negative (Negative); RBC Urine 0-2 /hpf (0-2); Specific Grav Ur 1.017 (1.001-1.035); Squamous Epithelial Cell Urine None Seen /hpf (Few); Trichomonas Vag PCR NOT DETECTED (NOT DETECTE); Urobilinogen Urine 0.2 mg/dL (<2.0)
[2024-04-18 02:05] LABS: Chlamydia trachomatis NOT DETECTED (NOT DETECTE); Neisseria gonorrhoeae PCR NOT DETECTED (NOT DETECTE)
[2024-04-18] MEDS: FLUCONAZOLE 150 MG TABLET PO (02:23)
--- OUTSIDE RECORDS SUMMARY | 2024-04-19 20:47 | XMS_ITS | Referral Summary ---
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 Would like to avoid narcotics. Previous opiod addict and on methadone. Would like to avoid narcotics. Other Other (See comments) Low 08/11/2023 Reaction: Sulfa (Sulfonamide Antibiotics) Nausea And Vomiting,Rash Medium 05/18/2017 Rash Medications SUMAtriptan (IMITREX) 100 mg tablet Take 1 tablet by oral route as needed. 0 Active sertraline (ZOLOFT) 100 mg tablet Take 2 tablets (200 mg total) by mouth daily Active sertraline (ZOLOFT) 50 mg tablet sertraline 50 mg tablet Active polyethylene glycol (Miralax) 17 gram/dose bulk powder Take 17 g twice a day by oral route for 30 days. 0 Active phenazopyridine (PYRIDIUM) 200 mg tablet TAKE 1 TABLET BY MOUTH THREE TIMES DAILY NEEDED FOR PAIN FOR 3 DAYS 4 Active phenazopyridine (PYRIDIUM) 100 mg tablet 4 Active naproxen (NAPROSYN) 500 mg tablet Take 1 tablet (500 mg total) by mouth 2 (two) times a day as needed 3 Active mirtazapine (REMERON) 15 mg tablet Take 1 tablet (15 mg total) by mouth nightly at bedtime Active methadone (DOLOPHINE) 5 mg tablet Take 23 tablets (115 mg total) by mouth daily 8 Active LORazepam (ATIVAN) 1 mg tablet Take 1 tablet (1 mg total) by mouth 2 (two) times a day 8 Active LORazepam (ATIVAN) 0.5 mg tablet Take 1 tablet (0.5 mg total) by mouth 3 (three) times a day as needed Active fluticasone propionate (FLONASE) 50 mcg/actuation nasal spray USE 1 SPRAY(S) IN EACH NOSTRIL TWICE DAILY Active FLUoxetine (PROzac) 20 mg capsule Take 1 capsule (20 mg total) by mouth daily Active fluconazole (DIFLUCAN) 150 mg tablet Take 1 tablet by oral route for 1 day. 0 Active docusate sodium (DOK) 100 mg capsule Take 1 capsule twice a day by oral route for 30 days. Active dicyclomine (BENTYL) 20 mg tablet Take 1 tablet (20 mg total) by mouth every 6 (six) hours as needed 1 Active cetirizine (ZyrTEC) 10 mg tablet 4 Active butalbital-acetami nophen-caffeine (ESGIC) 50-325-40 mg per tablet Take 1 tablet by mouth every 4 (four) hours as needed 1 Active amoxicillin-clavul anate (AUGMENTIN) 500-125 mg per tablet 4 Active amoxicillin-clavul anate (AUGMENTIN) 875-125 mg per tablet Take 1 tablet by mouth every 12 (twelve) hours for 7 days 4 Active acyclovir (ZOVIRAX) 400 mg tablet TAKE 1 TABLET BY MOUTH THREE TIMES DAILY FOR 5 DAYS Active methadone 1 mg/mL syringe 64 mg one daily Active gabapentin (NEURONTIN) 300 mg capsuleIndications :Neuropathic Pain Take 1 capsule (300 mg total) by mouth nightly 30 capsule 11 4 025 Active ondansetron ODT (ZOFRAN-ODT) 4 mg disintegrating tablet Dissolve 1 tablet oral every 4 hours as needed for nausea or vomiting. 15 tablet 4 Active Active Problems No known active problems Social History Tobacco Use Types Packs/Day Years Used Date Smoking Tobacco: Every Day Cigarettes Tobacco Cessation:Ready to Q uit: Not Asked; Counseling Given: Not Answered Personal Safety Answer Date Recorded Have you ever been in or are you currently in a harmful physical or emotional relationship or is someone making you feel afraid or unsafe? 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 Gender Identity Not on file Sexual Orientation Not on file Last Filed Vital Signs Vital Sign Reading Time Taken Comments Blood Pressure 141/64 12/01/2023 11:44 AM CDT Pulse 109 12/01/2023 11:44 AM CDT Temperature 36.7 ??C (98.1 ??F) 12/01/2023 11:44 AM C DT Respiratory Rate 18 12/01/2023 11:44 AM CDT Oxygen Saturation 96% 12/01/2023 11:44 AM CDT Inhaled Oxygen Concentration - - Weight 66.2 kg (146 lb) 12/01/2023 11:44 AM CDT Height 162.6 cm (5' 4 ) 12/01/2023 11:44 AM CDT Body Mass Index 25.06 12/01/2023 11:44 AM CDT Plan of Treatment Not on file Insurance [employer] [address] [facility] Care Teams Cattle Farmer Relationship Specialty Start Date End Date Hannah Randall MD PCP - General 07/08/20
--- OUTSIDE RECORDS SUMMARY | 2024-04-19 20:47 | XMS_ITS | Continuity of Care Document ---
Author Organization [facility] Address [address] [facility] [place] [address] Phone Care Team Providers Care Dental Office Assistant Name Role Phone Kuldeep Casanova MD Unavailable Unavailable Allergies, Adverse Reactions, Alerts Substance Reaction Status Criticality Sulfa (Sulfonamide Antibiotics) Active No Information Medications Medication Instructions Dosage Effective Dates (start - stop) Status Comments prednisone 20 mg tablet take 3 Tablet by oral route every day 60 MG - Active Procedures Procedure Date OFFICE/OUTPATIENT VISIT, EST OFFICE/OUTPATIENT VISIT, EST OFFICE/OUTPATIENT VISIT, EST OFFICE/OUTPATIENT VISIT, EST OFFICE/OUTPATIENT VISIT, EST OFFICE/OUTPATIENT VISIT, EST OFFICE/OUTPATIENT VISIT, EST OFFICE/OUTPATIENT VISIT, EST PREV VISIT, NEW, AGE 18-39 Advance Directives Directive Yes / No Effective Date File Name No Information Encounters Encounter Description Practice Location Reason(s) For Visit Diagnoses Date Provider Providers Copied on Encounter OFFICE/OUTPA TIENT VISIT, EST [facility], [address] [place], [address], [place] tel:[phone] [facility] hand numbness (chief complaint)cocai ne abuse (chief complaint)HTN (chief complaint)alcoh ol (chief complaint) Carpal Tunnel SyndromeMonone uritis of unspecified siteCocaine dependence, continuous useHypertensio n, Unspecified May-2 4-201 5 [facility] [place], [place], [address] , [place]. tel:[phone] Referring Provider: Juan[address], [place], [place], [address]. tel:[phone] OFFICE/OUTPA TIENT VISIT, [facility], [address], [place], [place], [address], [place] [phone] [facility] right flank pain (chief complaint)leuko cytosis (chief complaint)hypot hyroidism (chief complaint) Abdominal PainLEUKOCYTOS IS NOSHypothyroid ism 4 [facility], [place], [place], [address] , [place]. [phone] Referring Provider: Juanjo Stock [address], [place], [place], [address]. tel:[phone] OFFICE/OUTPA TIENT VISIT, [facility], [address], [place], [place], [address], [place] tel:[phone] [facility] pyelonephritis (chief complaint)neuro sandra (chief complaint)anxie ty (chief complaint)back pain (chief complaint) Pyelonephritis , unspecifiedIdi opathic progressive polyneuropathy Generalized anxiety disorderLumbag o 4 [facility], [place], [place], [address] , [place]. tel:[phone] Referring Provider: Juanjo Stock [address], [place], [place], [address]. tel:[phone] OFFICE/OUTPA TIENT VISIT, [facility], [address], [place], [place], [address], [place] tel:[phone] [facility] polysubstance abuse (chief complaint)back pain (chief complaint)anxie ty (chief complaint) ENCEPHALOPATHY , UNSPECIFIEDNon dependent cocaine abuse, unspecified useLumbagoGene ralized anxiety disorder [address] [facility] [address], [place], [place], [address] , [place]. tel:[phone] Referring Provider: Juanjo Stock [address], [place], [place], [address]. tel:[phone] OFFICE/OUTPA TIENT VISIT, [facility], [address], [place], [place], [address], [place] tel:[phone] [facility] back pain (chief complaint)ear pain (chief complaint)neuro sandra (chief complaint) LumbagoOtalgia , unspecifiedIdi opathic progressive polyneuropathy [address] [facility] [address], [place], [address] , [place]. tel:[phone] Referring Provider: Juanjo Stock [address], [place], [place], [address]. tel:[phone] OFFICE/OUTPA TIENT VISIT, [facility], [address], [place], [place], [address], [place] tel:[phone] [facility] sore throat (chief complaint)back pain (chief complaint) Throat painLumbago 4 [facility] [address], [place], [place], [address] , [place]. tel:[phone] Referring Provider: Kuldeep Casanova, [address], [place], [place], [address]. tel:[phone] OFFICE/OUTPA TIENT VISIT, [facility], [address], [place], [address], [place] tel:[phone] [facility] back pain (chief complaint) LumbagoIdiopat hic progressive polyneuropathy 3 [facility] [address], [place], [place], [address] , [place]. tel:[phone] Referring Provider: Kuldeep Casanova, [address], [place], [place], [address]. tel:[phone] OFFICE/OUTPA TIENT VISIT, [facility], [address], [place], [place], [address], [place] tel:[phone] [facility] sore throat (chief complaint)back pain (chief complaint) Throat painLumbago 3 [facility], [place], [place], [address] , [place]. [phone] PREV VISIT, NEW, AGE 18-39 [facility], [address], [place], [place], [address], tel:[phone] [facility] Physical (chief complaint) Routine Medical ExamRoutine Medical Exam 3 [facility], [place], [place], [address] , [place]. tel:[phone] Family History Family Member Type Diagnosis Age At Onset Father Problem (finding) Other Brother Problem (finding) blood leukemia Mother Problem (finding) Alive and well Father Problem (finding) Unknown Disease Payers Payer name Insurance type Covered green party ID Authoriza tion(s) No Information Social History Type Description Quantity Date Captured Comments Alcohol Use Details Caffeine Use Details Unknown Tobacco Use Status No Information Smoking Status Current every day smoker 2014 Sex Female Vital Signs Date / Time: Height Weight BMI Pulse Rate Blood Pressure Temperature Respiratory Rate Body Surface Area Head Circumference BMI percentile Pulse Ox Inhaled Ox 3:44 PM 63.00 in 132.00 lbs 23.3 8 kg/m eter (2) 89 /min 141/84 mm[Hg] 98.2 F 16 /min Chief Complaint And Reason For Visit From encounter dated '06/18/2014 14:30'. hand numbness (chief complaint) cocaine abuse (chief complaint) HTN (chief complaint) alcohol (chief complaint) Plan Of Treatment Date Type Action Status Goal Tobacco cessation counseling completed Goal Tobacco cessation counseling completed Goal Tobacco cessation counseling completed Goal Tobacco cessation counseling completed Goal Tobacco cessation counseling completed Goal Tobacco cessation counseling completed Goal Tobacco cessation counseling completed Goal Tobacco cessation counseling completed Goal Tobacco cessation counseling completed Referral Ordered: CT ABDOMEN W/DYE ordered Referral Ordered: US KIDNEY ordered Referral Referred To: Physical Therapy Ordered: Referral: Physical Therapy. ordered Referral Ordered: MRI LUMBAR SPINE W/O DYE ordered History Of Present Illness Encounter Date Complaint History Of Prese nt Illness No Information Instructions Date Instruction Additional Infor mation No Information Assessments Type Assessment Date No Information Mental Status Date Cognitive Assessment Orientation - [place] ed to time, place, person, situation.
--- OUTSIDE RECORDS SUMMARY | 2024-04-19 20:47 | XMS_ITS | Clinical Summary ---
Author Organization 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 Gender Identity Not on file Sexual Orientation Not on file Obstetrics History Last Filed Vital Signs Vital Sign Reading [...] 12/01/2023 11:44 AM CDT Plan of Treatment Health Maintenance Due Date Last Done Comments Breast Cancer Screening-Mammogram 1979 Depression Screening 1979 Hepatitis C Screening 1979 Pneumococcal vaccine <65 (1 of 2 - PCV) 06/10/1985 DTaP/Tdap/Td Vaccine (1 - Tdap) 06/10/1990 Varicella Vaccines (1 of 2 - 13+ 2-dose series) 06/10/1992 Hepatitis B Screening 06/10/1997 Regular Well Visit/Exam 18-64 06/10/1997 Covid-19 Vaccine (4 - 2023-2 5 season) 2023 07/09/2021, 09/21/2020, 08/30/2020 Influenza Vaccine (#1) 2023 , 01/04/2018 HPV Vaccines Aged Out No longer eligi ble based on patient's age to complete this topic Insurance Care Teams Gasoline Service Attendant Relationship Specialty Start Date End Date Hannah Randall MD PCP - General 07/08/20
--- OUTSIDE RECORDS SUMMARY | 2024-04-19 20:51 | XMS_ITS | Continuity of Care Document ---
Author Organization [facility] Address [address] [facility] [place] [address] Phone Care Team Providers Care Storage Facility Housekeeper Name Role Phone Kuldeep Casanova MD Unavailable [...] Copied on Encounter OFFICE/OUTPA TIENT VISIT, EST [facility], [address] [place], [address], [place] tel:[phone] [facility] hand numbness (chief complaint)cocai ne abuse (chief complaint)HTN (chief complaint)alcoh ol (chief complaint) Carpal Tunnel SyndromeMonone uritis of unspecified siteCocaine dependence, continuous useHypertensio n, Unspecified May-2 4-201 5 [facility] [place], [address] , [place]. tel:[phone] Referring Provider: Juanjo Stock [address], [place], [place], [address]. tel:[phone] OFFICE/OUTPA TIENT VISIT, [facility], [address], [place], [place], [address], [place] [phone] [facility] right flank pain (chief complaint)leuko cytosis (chief complaint)hypot hyroidism (chief complaint) Abdominal PainLEUKOCYTOS IS NOSHypothyroid ism 4 [facility] [address], [place], [place], [address] , [place]. [phone] Referring Provider: Juan[address], [place], [place], [address]. tel:[phone] OFFICE/OUTPA TIENT VISIT, [facility], [address], [place], [place], [address], [place] tel:[phone] [facility] pyelonephritis (chief complaint)neuro sandra (chief complaint)anxie ty (chief complaint)back pain (chief complaint) Pyelonephritis , unspecifiedIdi opathic progressive polyneuropathy Generalized anxiety disorderLumbag o 4 [facility] [address], [place], [place], [address] , [place]. [phone] Referring Provider: Juanjo [address], [place], [place], [address]. tel:[phone] OFFICE/OUTPA TIENT VISIT, [facility], [address], [place], [place], [address], [place] tel:[phone] [facility] polysubstance abuse (chief complaint)back pain (chief complaint)anxie ty (chief complaint) ENCEPHALOPATHY , UNSPECIFIEDNon dependent cocaine abuse, unspecified useLumbagoGene ralized anxiety disorder 4 [facility] [address], [place], [place], [address] , [place]. [phone] Referring Provider: Juan[address], [place], [place], [address]. tel:[phone] OFFICE/OUTPA TIENT VISIT, [facility], [address], [place], [place], [address], [place] tel:[phone] [facility] back pain (chief complaint)ear pain (chief complaint)neuro sandra (chief complaint) LumbagoOtalgia , unspecifiedIdi opathic progressive polyneuropathy [address] [facility], [place], [place], [address] , [place]. tel:[phone] Referring Provider: Juan[address], [place], [place], [address]. tel:[phone] OFFICE/OUTPA TIENT VISIT, [facility], [address], [place], [place], [address], [place] tel:[phone] [facility] sore throat (chief complaint)back pain (chief complaint) Throat painLumbago 4 [facility] [address], [place], [place], [address] , [place]. tel:[phone] Referring Provider: Kuldeep Casanova, [address], [place], [place], [address]. tel:[phone] OFFICE/OUTPA TIENT VISIT, [facility], [address], [place], [place], [address], [place] tel:[phone] [facility] back pain (chief complaint) LumbagoIdiopat hic progressive polyneuropathy 3 [address], [place], [place], [address] , [place]. tel:[phone] Referring Provider: Kuldeep Casanova, [address], [place], [place], [address]. tel:[phone] OFFICE/OUTPA TIENT VISIT, [facility], [address], [place], [place], [address], [place] tel:[phone] [facility] sore throat (chief complaint)back pain (chief complaint) Throat painLumbago 3 [address], [place], [place], [address] , [place]. [phone] PREV VISIT, NEW, AGE 18-39 [facility], [address], [place], [place], [address], tel:[phone] [facility] Physical (chief complaint) Routine Medical ExamRoutine Medical Exam 3 [facility], [place], [place], [address] , [place]. tel:[phone] Family History Family Member Type Diagnosis Age [...] Mental Status Date Cognitive Assessment Orientation - [place] ed to time, place, person, situation.
== END 2024-04-18 02:30 | disposition home or self-care (01) ==
PROVIDERS: Emergency Provider Physician Assistant; PCP Emergency Medicine
DX: N39.0 Urinary tract infection, site not specified (principal); F11.20 Opioid dependence, uncomplicated; F17.210 Nicotine dependence, cigarettes, uncomplicated
CPT/HCPCS: 81001; 81025; 87070; 87086; 87491; 87591; 87661; 99284; A9270

== ENCOUNTER 2024-07-11 18:25 | Emergency (ER) | payer OTHER, SELFPAY ==
--- NOTE | ~2024-07-11 | CT_ITS ---
CT abdomen pelvis w con Ordering provider: Tiffanie Parson History: 44 years Female with . RUQ pain . Comparison: June 22, 2022 Technique: CT abdomen and pelvis with IV and without oral contrast. Automated exposure control and it erative reconstruction technique were employed. The dose-length product was 258.90 mGy-cm. 100 mL Omn ipaque 350 was given IV. Findings: VISUALIZED LOWER CHEST: Normal. UPPER ABDOMINAL ORGANS: Liver: Fat infiltration. Gallbladder: Normal. Spleen: Normal. Stomach/duodenum: Normal. Pancreas: Normal. Prominent pancreatic duct. No definite mass is seen in the area of the head of the pancreas. Follow-up advised. Adrenals: Normal. Kidneys: Normal. PELVIC ORGANS: The bladder is normal. BOWEL AND MESENTERY: Colon: No evidence of diverticulitis. Appendix is not demonstrated Small Bowel: Normal. No obstruction. Peritoneum/mesentery: No free air or free fluid. No mesenteric lymphadenopathy. RETROPERITONEUM: Mild atheromatous disease of the abdominal aorta. No retroperitoneal lymphadenopat hy. MUSCULOSKELETAL: Superficial soft tissues: The superficial soft tissues are normal. Bones: Slight anterior loss of height is seen in L1 which is chronic. Otherwise, Normal spine. IMPRESSION: 1. No evidence of appendicitis, diverticulitis or intestinal obstruction. 2. Slightly prominent pancreatic duct. Follow-up advised. 3. Fat infiltration of the liver. Reviewed, dictated and finalized at location A.
--- OUTSIDE RECORDS SUMMARY | 2024-07-11 18:27 | XMS_ITS | Continuity of Care Document ---
Author Organization [facility] Address [address] [place] [address] Phone Care Team Providers Care Telephone Order Clerk Name Role Phone Kuldeep Casanova MD Unavailable [...] Copied on Encounter OFFICE/OUTPA TIENT VISIT, EST [facility], [address] [place], [id number], [place] tel:[phone] [facility] hand numbness (chief complaint)cocai ne abuse (chief complaint)HTN (chief complaint)alcoh ol (chief complaint) Carpal Tunnel SyndromeMonone uritis of unspecified siteCocaine dependence, continuous useHypertensio n, Unspecified May-2 4-201 [address] [facility] [address] [place], [place], [id number] , [place]. tel:[phone] Referring Provider: Juanjo [address], [place], [place], [id number]. tel:[phone] OFFICE/OUTPA TIENT VISIT, [facility], [address], [place], [place], [address], [place] [phone] [facility] right flank pain (chief complaint)leuko cytosis (chief complaint)hypot hyroidism (chief complaint) Abdominal PainLEUKOCYTOS IS NOSHypothyroid ism 4 [facility] [address]. [address], [address], [place], [place], [address] , [place]. [phone] Referring Provider: Juanjo [address], [place], [place], [id number]. tel:[phone] OFFICE/OUTPA TIENT VISIT, [facility], [address], [place], [place], [address], [place] tel:[phone] [facility] pyelonephritis (chief complaint)neuro sandra (chief complaint)anxie ty (chief complaint)back pain (chief complaint) Pyelonephritis , unspecifiedIdi opathic progressive polyneuropathy Generalized anxiety disorderLumbag o [address] [facility] [address]. [address], [place], [place], [address] , [place]. tel:[phone] Referring Provider: Juanjo [address], [place], [place], [address]. tel:[phone] OFFICE/OUTPA TIENT VISIT, [facility], [address], [place], [place], [address], [place] tel:[phone] [facility] polysubstance abuse (chief complaint)back pain (chief complaint)anxie ty (chief complaint) ENCEPHALOPATHY , UNSPECIFIEDNon dependent cocaine abuse, unspecified useLumbagoGene ralized anxiety disorder [address] [facility], [address], [place], [place], [address] , [place]. tel:[phone] Referring Provider: Juanjo [address], [place], [place], [address]. tel:[phone] OFFICE/OUTPA TIENT VISIT, [facility], [address], [place], [place], [address], [place] tel:[phone] [facility] back pain (chief complaint)ear pain (chief complaint)neuro sandra (chief complaint) LumbagoOtalgia , unspecifiedIdi opathic progressive polyneuropathy [address] [facility], [place], [place], [address] , [place]. tel:[phone] Referring Provider: Juanjo [address], [place], [place], [address]. tel:[phone] OFFICE/OUTPA TIENT VISIT, [facility], [address], [place], [place], [address], [place] tel:[phone] [facility] sore throat (chief complaint)back pain (chief complaint) Throat painLumbago 4 [facility], [address], [place], [place], [address] , [place]. tel:[phone] Referring Provider: Kuldeep Casanova, [address], [place], [place], [address]. tel:[phone] OFFICE/OUTPA TIENT VISIT, [facility], [address], [place], [place], [address], [place] tel:[phone] [facility] back pain (chief complaint) LumbagoIdiopat hic progressive polyneuropathy [address] [facility], [place], [place], [address] , [place]. tel:[phone] Referring Provider: Kuldeep Casanova, [address], [place], [place], [address]. tel:[phone] OFFICE/OUTPA TIENT VISIT, [facility], [address], [place], [place], [address], [place] tel:[phone] [facility] sore throat (chief complaint)back pain (chief complaint) Throat painLumbago [address], [place], [place], [address] , [place]. [phone] PREV VISIT, NEW, AGE 18-39 [facility], [address], [place], [place], [address], tel:[phone] [facility] Physical (chief complaint) Routine Medical ExamRoutine Medical Exam [address] [facility], [place], [place], [address] , [place]. tel:[phone] Family History Family Member Type Diagnosis Age At Onset Father Problem (finding) Other Brother Problem (finding) blood leukemia Mother Problem (finding) Alive and well Father Problem (finding) Unknown Disease Payers Payer name Insurance type Covered alliance party ID Authoriza tion(s) No Information Social [...] Mental Status Date Cognitive Assessment Orientation - [place] ed to time, place, person, situation.
--- OUTSIDE RECORDS SUMMARY | 2024-07-11 18:27 | XMS_ITS | Referral Summary ---
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 Gender Identity Not on file Sexual Orientation Not on file Last Filed Vital Signs Vital Sign Reading Time Taken Comments Blood Pressure 141/64 12/01/2023 11:44 AM CDT Pulse 109 12/01/2023 11:44 AM CDT Temperature 36.7 C (98.1 F) 12/01/2023 11:44 AM CDT Respiratory Rate 18 12/01/2023 11:44 AM CDT Oxygen Saturation 96% 12/01/2023 11:44 AM CDT Inhaled Oxygen Concentration - - Weight 66.2 kg (146 lb) 12/01/2023 11:44 AM CDT Height 162.6 cm (5' 4 ) 12/01/2023 11:44 AM CDT Body Mass Index 25.06 12/01/2023 11:44 AM CDT Plan of Treatment Not on file Insurance [employer] [address] [facility] Care Teams Manager Energy Relationship Specialty Start Date End Date Hannah Randall MD PCP - General 07/08/20
--- OUTSIDE RECORDS SUMMARY | 2024-07-11 18:27 | XMS_ITS | Data Portability ---
Author Organization [place] - S [place] [employer] Main Office Address [address] [place] [address] Care Team Providers Care Upholsterer Helper Name Role Phone GAVIN AYALA Primary Care Provider [phone] GAVIN AYALA Referring Provider [phone] Assessment Encounter Date Assessment Date Assessment LastModified by Organization Details LastModified Time 05/02/2024 05/02/2024 43-year-old female presents for evaluation of her left shoulder. She reports 6 months of pain and weakness with lifting overhead motions. She reports that she was lifting somebody when she felt a pop in her shoulder. 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 She is right-hand dominant. She smokes 1 pack a day. 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 She denies other medical issues. Review of systems per patient questionnaire Physical exam: She has tenderness palpation over the AC joint and also over the anterior shoulder. Range of motion 120 active, 150 passive, 20 external rotation, internal rotation lower lumbar. She has 5/5 strength with internal rotation, 5- out of 5 with external rotation and pain, 4-5 elevation, positive Arlene, positive Neer and Fishman. Negative Blythe's. X-rays were reviewed, demonstrating mild glenohumeral joint changes with small inferior osteophyte. Based on her history and exam findings, I suspect she has a rotator cuff strain. We will begin with a course of conservative management with physical therapy anti-inflammator ies. We also discussed cortisone injection given her significant dysfunction and pain at night which disrupts her sleep. She wanted proceed with that and tolerated well. We will see her back in 6 weeks after course of treatment for recheck. At that point if she has persistent symptoms we will send her for MRI to evaluate the rotator cuff. She is in agreement with the plan. She may continue working as tolerated in the meantime. We also discussed smoking cessation and the effects of nicotine on healing. If she were to need surgery down the road I would want her to be off of nicotine. 3 minutes were spent. [email or web address] Not available 05/02/2024 15:10:54 Plan of Treatment Reminders Order Date Submit Date Provider Last Modified By Organization Details Last Modified Time Details Appointments None recorded. Lab None recorded. Referral physical therapist referral - Please schedule for L shoulder. Thanks 2024 025 [facility], [address], [place], [address], 12:17:17 Procedures None recorded. Surgeries None recorded. Imaging XR, shoulder 2024 025 [email or web address] [facility], [address], [place], [address], 16:31:11 Medication Orders Mobic 15 mg tablet 2024 025 [email or web address] [facility], [address] [place], [address], 16:31:11 Patient TargetsNo targets recorded. Patient InstructionsNo instructions recorded. Reason for Referral Physical Therapist Referral for Pain of left shoulder joint L shoulder Please schedule for L shoulder. Thanks Referring Physician: Jesus Manuel Camacho, Orthopedic Surgery, Encounter Date: 05/02/2024 Results Created Date Observation Date Name Description Value Unit Range Abnormal Flag Note LastModifiedBy Organization Detail LastModifiedTime 05/04/1903/31/2021 XR, bernice gusman, 2 or more view No observ ation record ed. [id number] Not Available 05/26/2022 07:37:29 06/02/19 22 06/01/2021 US guide d asp/i nj emanuelul uzma RT [facility] [address], [place] [address] Patien t Name: LORENE BARRIOS Access ion #: [id number] Sex: F : 1980 7 Locati on: RAD Attend ing Physic iona: ARAVIND AGUILAR Orderi ng Physic iona: ARAVIND AGUILAR Exam Date: 06/02/19 8:18 AM Exam Name: US GUIDED ASP/IN J SHOULD ER RT Admitt ing Diagno sis(es ): RADIOL OGY REPORT - FINAL EXAM: US GUIDED ASP/IN J SHOULD ER RT HISTOR Y: right frozen should er 40-yea r-old female with right should er pain, frozen should er. COMPAR YOU: Radiog raphs dated 2021. TECHNI QUE: PROCED URE: Right should er glenoh umeral joint ultras ound-g uided therap eutic inject ion. EXPLAN ATION: Risks and benefi ts of the proced ure were discus sed with the patien t, includ ing risks of bleedi ng, infect ion, and allerg ic reacti on. The patien t agreed to procee d and gave inform ed consen t. The skin of the right should er was marked , and the patien t agreed that this was the correc t should er. Time out was perfor med. Page 1 of 2 [facility] Diego velez Name: LORENE BARRIOS Access ion #: [id number] Sex: F : 1980 7 Exam Date: 06/02/19 8:18 AM Exam Name: US GUIDED ASP/IN J SHOULD ER RT Admitt ing Diagno sis(es ): INJECT ATE: 80 mg Depo-M edrol; 4 ml 1% lidoca ine withou t epinep hrine. The patien t was placed in sittin g positi on on the ultras ound bed. The right should er was evalua magaly sonogr aphica lly. The skin of the right should er was preppe d steril pedro with betadi ne. The skin and subcut aneous tissue s were anesth etized with 1% lidoca ine withou t epinep hrine. A 22 gauge spinal needle was advanc ed under fluoro scopic guidan ce into the glenoh umeral joint. The medica tions were then inject ed into the glenoh umeral joint under sonogr aphic visual izatio n. The needle was remove d. The skin was cleans ed, and a small bandag e was placed . The patien rosie tolera magaly the proced ure well, and there were no immedi ate compli cation s. The patien rosie descri bed her pain level to be improv ed immedi ately. Multip le perman ent sonogr aphic images were obtain ed before and during the proced ure. IMPRES CHRIS: Succes sful right should er glenoh umeral therap eutic inject ion, with immedi ately decrea sed right should er pain. Create d and electr onical ly signed by: Jesus Manuel mclaughlin MD Signed Date: 06/02/19 12:41 PM (CT) Dictat ed by: Jesus Manuel mclaughlin MD (CT) (CT) Page 2 of 2 [id number] [facility] (Imaging) [address] [place], [address], 05/26/2022 07:37:29 05/02/19 XR, shoul uzma No observ ation record ed. [facility] [address], [place], [address], 05/02/2024 14:12:06 06/01/19 25 05/29/2024 MRI, shoul uzma, w/o contr ast No observ ation record ed. [email or web address] [facility] [address] [place], [address], 05/31/2024 16:43:50 Result Notes None recorded. Problems Name Problem SNOMED Code Status Onset Date Resolution Date Notes Provider Name and Address Organization Details Recorded Time Disorder of shoulder 572328834 Active 2021 Not Available [facility] 3 07:31:57 Pain of right shoulder joint 99571521362837 100 Active [address] Not [address] [facility] 3 07:31:57 Closed fracture of distal end of radius 15460443 Active Not Available [facility] 3 07:31:57 Right lower quadrant pain 390955731 Active Not Available [facility] 3 07:31:57 Fracture of forearm 37179888 Active Not Available [facility] 3 07:31:57 Pain of left shoulder joint 01040996031632 109 Active 2024 mEily Reeves, ATC L null, [employer] 14:11:56 Problem Notes None recorded. Procedures Surgical History Date Name Laterality Status Provider Name and Address Organization Details Recorded Time 05/02/19 Ortho - Cortisone Injection completed Jesus Manuel Camacho MD [address] [facility] [address], [place], [address], [employer] 05/02/2024 15:10:08 operation on external ear completed Not Available [facility] 05/26/2022 07:27:19 [facility]sterectomy completed [facility] 05/26/2022 07:27:19 Imaging Results Imaging Date Name Status LastModified by Organiz ation Details LastModified Time 03/31/2021 XR, shoulder, 2 or more view completed [id number] Information not available 05/26/2022 07:37:29 06/01/2021 US guided asp/inj shoulder RT completed [id number] [facility] (Imaging) [address] [place], [address], 05/26/2022 07:37:29 05/02/2024 XR, shoulder completed [facility] [address], [place], [address], 05/02/2024 14:12:06 05/29/2024 MRI, shoulder, w/o contrast completed [email or web address] [facility] [address] [place], [address], 05/31/2024 16:43:50 Procedure Notes None recorded. Medical Equipment None Reported. Allergies Allergen ID Allergen Name Allergen Category Reaction Reaction Severity Criticality Documentation Date Start Date Code Code System Note Provider Name and Address Organization Details Recorded Time 99681 Substance with sulfonami de structure and antibacte rial mechanism of action (substanc e) medicatio n Not available Not available Not available 05/26/2022 03271 8003 SNOMED Not Available [facility] 3 07:37:24 Medications Name Sig Start Date Stop Date Status Note LastModified by Organization Details LastModified Time cyclobenzap rine 10 mg tablet TAKE 1 TABLET BY MOUTH THREE TIMES DAILY NEEDED FOR MUSCLE SPASM 05/01 completed Not Available Not Available Not Available amoxicillin 500 mg capsule TAKE 1 CAPSULE BY MOUTH 4 TIMES DAILY AND 2 NOW 05/01 completed Not Available Not Available Not Available terbinafine HCl 1 % topical cream APPLY CREAM TOPICALLY TO AFFECTED AREA TWICE DAILY 05/01 completed Not Available Not Available Not Available hydrocodone 7.5 mg-ibuprofe n 200 mg tablet TAKE 1 TABLET BY MOUTH THREE TIMES DAILY NEEDED FOR PAIN 05/01 completed Not Available Not Available Not Available terconazole 0.4 % vaginal cream 05/22 completed Not Available Not Available Not Available bupropion HCl SR 150 mg tablet,12 hr sustained-r elease 05/22 completed Not Available Not Available Not Available naproxen 375 mg tablet TAKE 1 TABLET BY MOUTH EVERY 12 HOURS WITH FOOD NEEDED 05/01 completed Not Available Not Available Not Available nicotine 14 mg/24 hr daily transdermal patch 05/01 completed Not Available Not Available Not Available cetirizine 10 mg tablet TAKE 1 TABLET BY MOUTH ONCE DAILY FOR 60 DAYS 05/02 completed Not Available Not Available Not Available azithromyci n 250 mg tablet TAKE 2 TABLETS BY MOUTH ON DAY 1, AND THEN TAKE 1 TABLET BY MOUTH ONCE A DAY ON DAY 2 THROUGH DAY 5 05/22 completed Not Available Not Available Not Available ibuprofen 800 mg tablet 05/02 completed Not Available Not Available Not Available Lidocaine Viscous 2 % mucosal solution 05/22 completed Not Available Not Available Not Available fluconazole 150 mg tablet TAKE 1 TABLET BY MOUTH A ONE TIME DOSE active Not Available Not Available No t Available citalopram 10 mg tablet 05/22 completed Not Available Not Available Not Available hydrocodone 5 mg-acetamin ophen 325 mg tablet 05/22 completed Not Available Not Available Not Available ondansetron HCl 8 mg tablet TAKE 1 TABLET BY MOUTH EVERY 8 HOURS NEEDED FOR NAUSEA 05/22 completed Not Available Not Available Not Available meloxicam 15 mg tablet TAKE 1 TABLET BY MOUTH ONCE DAILY active Not Available Not Available No t Available phenazopyri dine 200 mg tablet TAKE 1 TABLET BY MOUTH THREE TIMES DAILY NEEDED FOR PAIN FOR 3 DAYS 05/02 completed Not Available Not Available Not Available prednisone 20 mg tablet 05/22 completed Not Available Not Available Not Available sertraline 100 mg tablet TAKE 1 TABLET BY MOUTH ONCE DAILY 05/01 completed Not Available Not Available Not Available acetaminoph en 300 mg-codeine 30 mg tablet TAKE 1 TABLET BY MOUTH EVERY 6 HOURS NEEDED FOR PAIN 05/01 completed Not Available Not Available Not Available acyclovir 400 mg tablet TAKE 1 TABLET BY MOUTH THREE TIMES DAILY FOR 5 DAYS active Not Available Not Available No t Available ciprofloxac in 500 mg tablet TAKE 1 TABLET BY MOUTH EVERY 12 HOURS FOR 5 DAYS 05/02 completed Not Available Not Available Not Available doxycycline monohydrate 100 mg tablet TAKE 1 TABLET BY MOUTH TWICE DAILY 05/02 completed Not Available Not Available Not Available tramadol 50 mg tablet 05/22 completed Not Available Not Available Not Available triamcinolo ne acetonide 0.1 % topical cream 05/22 completed Not Available Not Available Not Available amoxicillin 500 mg tablet TAKE 1 TABLET BY MOUTH EVERY 8 HOURS FOR 7 DAYS active Not Available Not Available No t Available ondansetron 8 mg disintegrat ing tablet DISSOLVE 1 TABLET IN MOUTH EVERY 4 TO 6 HOURS NEEDED FOR NAUSEA AND VOMITING 05/02 completed Not Available Not Available Not Available nortriptyli ne 25 mg capsule 05/22 completed Not Available Not Available Not Available oxycodone-a cetaminophe n 5 mg-325 mg tablet 05/22 completed Not Available Not Available Not Available propranolol 10 mg tablet 05/02 completed Not Available Not Available Not Available amoxicillin 875 mg tablet TAKE 1 TABLET BY MOUTH EVERY 12 HOURS FOR 10 DAYS 05/22 completed Not Available Not Available Not Available alprazolam 0.25 mg tablet 05/22 completed Not Available Not Available Not Available famotidine 20 mg tablet 05/22 completed Not Available Not Available Not Available lorazepam 0.5 mg tablet TAKE 1 TABLET BY MOUTH ONCE DAILY NEEDED FOR ANXIETY 05/02 completed Not Available Not Available Not Available dicyclomine 20 mg tablet 05/22 completed Not Available Not Available Not Available phenazopyri dine 100 mg tablet TAKE 1 TABLET BY MOUTH THREE TIMES DAILY AFTER A MEAL FOR 2 DAYS 05/02 completed Not Available Not Available Not Available baclofen 10 mg tablet TAKE 1 TABLET BY MOUTH THREE TIMES DAILY FOR 10 DAYS 05/22 completed Not Available Not Available Not Available doxycycline monohydrate 100 mg capsule 05/22 completed Not Available Not Available Not Available naproxen sodium 550 mg tablet 05/22 completed Not Available Not Available Not Available tobramycin 0.3 % eye drops 1 DROP INTO RIGHT EYE EVERY 4 HOURS FOR 7 DAYS 05/02 completed Not Available Not Available Not Available prednisone 50 mg tablet 05/22 completed Not Available Not Available Not Available lidocaine 5 % topical patch APPLY ONE PATCH TOPICALLY TO CLEAN, DRY SKIN. LEAVE ON FOR 12 HOURS THEN REMOVE. MUST WAIT AT LEAST 12 HOURS BEFORE APPLYING PATCH(ES) AGAIN. 05/02 completed Not Available Not Available Not Available promethazin e 25 mg tablet 05/22 completed Not Available Not Available Not Available nicotine 21 mg/24 hr daily transdermal patch 05/01 completed Not Available Not Available Not Available gabapentin 300 mg capsule TAKE 1 CAPSULE BY MOUTH NIGHTLY 05/02 completed Not Available Not Available Not Available diclofenac sodium 75 mg tablet,glenda yed release Take 1 tablet twice a day by oral route. 05/01 completed Not Available Not Available Not Available hydroxyzine HCl 25 mg tablet TAKE 1 TABLET BY MOUTH THREE TIMES DAILY NEEDED FOR ANXIETY 05/02 completed Not Available Not Available Not Available mirtazapine 15 mg tablet TAKE 1 TABLET BY MOUTH EVERY DAY AT BEDTIME 05/01 completed Not Available Not Available Not Available ibuprofen 600 mg tablet TAKE 1 TABLET BY MOUTH EVERY 6 HOURS NEEDED FOR PAIN 05/01 completed Not Available Not Available Not Available methylpredn isolone 4 mg tablets in a dose pack TAKE BY MOUTH DIRECTED ON INSIDE OF PACKAGE 05/01 completed Not Available Not Available Not Available albuterol sulfate HFA 90 mcg/actuati on aerosol inhaler INHALE 2 PUFFS BY MOUTH 4 TIMES DAILY NEEDED FOR SHORTNESS OF BREATH OR WHEEZING 05/02 completed Not Available Not Available Not Available ondansetron 4 mg disintegrat ing tablet DISSOLVE 1 TABLET IN MOUTH EVERY 4 HOURS NEEDED FOR NAUSEA AND VOMITING 05/02 completed Not Available Not Available Not Available cefdinir 300 mg capsule 05/02 completed Not Available Not Available Not Available fluticasone propionate 50 mcg/actuati on nasal spray,suspe nsion USE 1 SPRAY(S) IN EACH NOSTRIL TWICE DAILY active Not Available Not Available No t Available sertraline 50 mg tablet TAKE 1 TABLET BY MOUTH ONCE DAILY IN THE MORNING 05/01 completed Not Available Not Available Not Available naproxen 500 mg tablet TAKE 1 TABLET BY MOUTH TWICE DAILY WITH MEALS FOR 7 DAYS 05/01 completed Not Available Not Available Not Available amoxicillin 875 mg-potassiu m clavulanate 125 mg tablet TAKE 1 TABLET BY MOUTH EVERY 12 HOURS 05/01 completed Not Available Not Available Not Available amoxicillin 500 mg-potassiu m clavulanate 125 mg tablet TAKE 1 TABLET BY MOUTH EVERY 8 HOURS FOR 5 DAYS 05/02 completed Not Available Not Available Not Available nicotine 7 mg/24 hr daily transdermal patch 05/01 completed Not Available Not Available Not Available nitrofurant oin monohydrate /macrocryst als 100 mg capsule TAKE 1 CAPSULE BY MOUTH TWICE DAILY 05/02 completed Not Available Not Available Not Available Flexeril 05/01 completed Not Available Not Available Not Available Vitals Date Recorded Body height Body mass index (BMI) Body weight Provider Name and Address Organization Details Last Updated DateTime 05/02/2024 162.56 cm 25.1 kg/m2 74087.49 g VENKATESH Rivas [place] [facility] [place] [employer] 05/02/2024 14:06:59 Social History Question Answer Notes LastModified by Organizat ion Details LastModified Time Tobacco Smoking Status Current Every Day Smoker Not Available [facility] 05/26/2022 07:27:16 What Is Your Level Of Alcohol Consumption? Occasional Information not available 05/02/2024 How Much Tobacco Do You Smoke? 1 PPD Information not available 05/02/2024 How Many Years Have You Smoked Tobacco? 20 Information not available 05/02/2024 Sex: Unknown Functional Status None recorded. Mental Status None recorded. Family History Relationship Description Onset Age of this Age Resolved Age Notes LastModified by Organization Details LastModified Time Father Hypertensive disorder [id number] Not available 05/26/2022 07:27:21 Maternal Grandmother Diabetes mellitus [id number] Not available 05/26/2022 07:27:21 Maternal Grandmother Kidney disease [id number] Not available 05/26/2022 07:27:21 Medical History Condition Response BLINDNESS N KIDNEY STONES N CARPAL TUNNEL SYNDROME N MRSA N LUNG DISEASE/DISORDER N HISTORY OF DRUG ABUSE N RADIATION / CHEMOTHERAPY N COPD N ANKLE PAIN N SPORTS INJURY N BLOOD DISEASES N SCHIZOPHRENIA N SHINGLES N BOWEL PROBLEMS N DEPRESSION (INCLUDING POST ) N SHOULDER PAIN N STROKE/TIA N ULCERS N KNEE PAIN N BENIGN PROSTATIC HYPERPLASIA N OBESITY N GERD/NAUSEA N ANEURYSM N URINARY/BLADDER/KIDNEY PROBLEMS N CORONARY ARTERY DISEASE (CAD) N ADDICTION CONCERNS N USE OF BLOOD THINNERS N SKIN PROBLEMS N EMPHYSEMA N MUSCLE,JOINT OR BONE PROBLEMS N DVT N STOMACH ULCERS N BLOOD CLOTS N USE OF NSAIDS N CONCUSSION OR SPINAL TRAUMA N NEUROPATHY N AIDS/HIV N FRACTURES N HYPERTENSION N ELBOW PAIN N TOURETTE'S N Metal allergy N ANXIETY DISORDER N BLOOD TRANSFUSION N ANEMIA/BLOOD DISORDER N BIPOLAR DISORDER N BRONCHITIS N OSTEOARTHRITIS N TUBERCULOSIS N FOOT PROBLEM N HEART VALVE DISORDERS N ALLERGIES/HAYFEVER N SOFT TISSUE INJURY N INFECTIOUS DISEASE N HEART ARRHYTHMIA N INSOMNIA N HIGH CHOLESTEROL / HYPERLIPIDEMIA N RHEUMATOID ARTHRITIS N EDEMA N CHRONIC PAIN SYNDROME N CAROTID BLOCKAGE N BACK / NECK PROBLEMS N HAVE YOU BEEN HOSPITALIZED OR SEEN IN [facility] IN THE PAST YEAR ? N BURSITIS N HERNIATED DISC N DIALYSIS N FIBROMYALGIA N OSTEOPOROSIS N ARTHRITIS N NO SIGNIFICANT PAST MEDICAL HISTORY N PERIPHERAL NEUROPATHY N DIABETES, TYPE N HEARTBURN / REFLUX N HEPATITIS / LIVER DISEASE N GOUT N ALZHEIMER'S DISEASE N SLEEP DISORDER N HERPES N HEADACHES/MIGRAINES N SEIZURES/EPILEPSY N VASCULAR DISEASE N Blood Disorder N HIP PAIN N DIZZINESS N HEAD TRAUMA OR INJURY N HEART DISEASE/HEART PROBLEMS N MULTIPLE SCLEROSIS N CANCER: SPECIFY N CARDIAC ARRHYTHMIA N ANESTHESIA COMPLICATIONS N ATRIAL FIBRILLATION N AUTOIMMUNE DISEASE N Gynecological HistoryNo gynecological history recorded. Obstetrics History GPAL:G 0 P 0 0 0 0 Past Encounters Encounter ID Performer Location Encounter Start Date Encounter Closed Date Diagnosis/Indication Diagnosis SNOMED-CT Code Diagnosis ICD10 Code Diagnosis Note [id number] [facility] [address] [place] [address] 05/22/2021 00:00:00 05/22/2021 16:19:28 [id number] [facility] [address] [place] [address] 06/19/2021 00:00:00 06/19/2021 14:25:15 [id number] [facility] [address] [facility] [address] [address] [place] [address] 08/14/2021 00:00:00 08/14/2021 14:33:08 [id number] Jesus Manuel Camacho MD [facility] [address] [facility] [address] [facility] [address] [place] [address] 05/02/2024 13:54:44 05/02/2024 14:46:00 Pain of left shoulder joint 0887606261 [id number] M25.512 Health Concerns Section Related Observation LastModified by Organization Detai ls LastModified Time None Recorded Concern Status LastModified by Organization Details LastModified Time None Recorded Advance Directives Directive None Recorded Payers Encounter Date Sequence Insurance Name Policy Number Policy Fox Covered Member ID Fox Member ID Guarantor Name 05/02/2024 1 [facility] (MEDICAID HMO) [id number] Lorene Barrios [id number] Lorene Barrios OBGyn Episode No OBEpisode recorded.
--- OUTSIDE RECORDS SUMMARY | 2024-07-11 18:27 | XMS_ITS | Clinical Summary ---
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 Gender Identity Not on file Sexual [...] Last Done Comments Breast Cancer Screening-Mammogram 1979 Colon Cancer Screening-Colonoscopy 1980 Depression Screening 1980 Hepatitis C Screening 1980 DTaP/Tdap/Td Vaccine (1 - Tdap) 06/10/1990 Varicella Vaccines (1 of 2 - 13+ 2-dose series) 06/10/1992 Hepatitis B Screening 06/10/1997 Regular Well Visit/Exam 18-64 06/10/1997 Pneumococcal vaccine <65 (1 of 2 - PCV) 06/10/1998 Covid-19 Vaccine (2023-2 5 season) 2023 07/09/2021, 09/21/2020, 08/30/2020 Influenza Vaccine (Season Ended) 2024 01/09/2020, 01/04/2018 HPV Vaccines Aged Out No longer eligi ble based on patient's age to complete this topic Insurance Care Teams Sed Special Education Teacher Relationship Specialty Start Date End Date Hannah Randall MD PCP - General 07/08/20
[2024-07-11 18:39] VITALS: BP 126/86; PULSE 155; RESP 16; TEMP 36.6; O2SAT 98
--- NOTE | 2024-07-11 20:05 | ED.ABDPAIN ---
HPI - Abdominal Pain General Chief Complaint: Abdominal Pain <Tiffanie Parson MD - Last Filed: 07/11/24 21:50> Stated Complaint: right abd pain <Tiffanie Parson MD - Last Filed: 07/11/24 21:50> Time Seen by Provider: 07/11/24 19:49 <Tiffanie Parson MD - Last Filed: 07/11/24 21:50> History of Present Illness HPI narrative: Patient with RUQ pain, n/v that started earlier this morning after eating sausages. Had similar symptoms a long time ago that got better with GI cocktail. Also experiencing some chills <Tiffanie Parson MD - Last Filed: 07/11/24 21:50> Related Data Allergies/Adverse Reactions: Allergies Allergy/AdvReac Type Severity Reaction Status Date / Time Sulfa (Sulfonamide Allergy Unknown RASH, Verified 04/15/24 11:54 Antibiotics) VOMITING <Tiffanie Parson MD - Last Filed: 07/11/24 21:50> Review of Systems Review of Systems: All systems reviewed & are unremarkable except as noted in HPI and below <Tiffanie Parson MD - Last Filed: 07/11/24 21:50> PMFSH Past Medical History Medical History: Medical History Methadone dependence Opioid use Vicodin Frequent UTI Methadone dependence Opioid use Vicodin Methadone dependence Opioid use Vicodin Toenail fungus Neuropathy Substance abuse On methadone Anxiety Depression Herpes simplex <Tiffanie Parson MD - Last Filed: 07/11/24 21:50> Surgical History Surgical History: Surgical History H/O: hysterectomy Hx of tonsillectomy <Tiffanie Parson MD - Last Filed: 07/11/24 21:50> Family History Family History: Family History Other No significant family history <Tiffanie Parson MD - Last Filed: 07/11/24 21:50> Social History Social History: Social History Smoking packs per day: 1 Smoking cigarettes per day: 20.0 Years smoked: 20 Smoking pack-years: 20.00 Smoking status: Current every day smoker Second hand tobacco smoke exposure: Yes Alcohol intake: never Substance use: former Substance use type: painkillers Other substance usage details: Deirdre denies using recreational drugs at this time Living arrangements: with family Occupation/Education: occupation Gender identity (if verbalized by the patient): Female <Tiffanie Parson MD - Last Filed: 07/11/24 21:50> Exam Narrative: EXAMINATION OF ORGAN SYSTEMS/BODY AREAS: Constitutional: Vital signs per nursing GENERAL: Curled up in a ball looking sad HEAD: Normal with no signs of head trauma. EYES: EOMI, conjunctiva normal ENT: Hearing grossly intact LUNGS: Nonlabored breathing. HEART: [Regular rate and rhythm] ABD: [Soft], slightly tender to palpation right upper quadrant EXT: Normal range of motion SKIN: [No rashes or lesions.] NEURO: [Alert and oriented x 3. No gross focal sensory or strength deficits.] PSYCH: Normal affect <Tiffanie Parson MD - Last Filed: 07/11/24 21:50> Course Vital Signs Vital signs: Vital Signs Temperature 97.8 F 07/11/24 18:39 Pulse Rate 155 H 07/11/24 18:39 Respiratory Rate 16 07/11/24 18:39 Blood Pressure 126/86 07/11/24 18:39 Pulse Oximetry 98 07/11/24 18:39 Temperature 97.8 F 07/11/24 18:39 Pulse Rate 72 07/11/24 22:34 Respiratory Rate 16 07/11/24 22:34 Blood Pressure 116/78 07/11/24 22:34 Pulse Oximetry 97 07/11/24 22:34 <Tiffanie Parson MD - Last Filed: 07/11/24 21:50> Vital Signs Temperature 97.8 F 07/11/24 18:39 Pulse Rate 155 H 07/11/24 18:39 Respiratory Rate 16 07/11/24 18:39 Blood Pressure 126/86 07/11/24 18:39 Pulse Oximetry 98 07/11/24 18:39 Temperature 97.8 F 07/11/24 18:39 Pulse Rate 72 07/11/24 22:34 Respiratory Rate 16 07/11/24 22:34 Blood Pressure 116/78 07/11/24 22:34 Pulse Oximetry 97 07/11/24 22:34 <Gerald Goetz MD - Last Filed: 07/11/24 23:32> MDM - Abdominal Pain MDM Narrative Medical decision making narrative: Electronic medical record was reviewed. Patient presented to the ED with complaint of [abdominal pain and vomiting]. Vitals [were within acceptable limits]. Physical exam revealed [tenderness to palpation in right upper quadrant]. Based on the patient's history and physical exam, my differential includes but is not limited to [gastritis, gastroenteritis, cholecystitis, pancreatitis, appendicitis]. [IV access was established by nursing staff. Patient was given zofran, morphine]. CBC, BMP, lipase, LFTs, bilirubin and alk phos were obtained. Labs were pertinent for slightly elevated white count, UA with WBCs but no bacteria. [Decision was made to obtain a CT-abdomen to evaluate for acute abdominal process.] Patient signed out to oncoming ER physician. <Tiffanie Parson MD - Last Filed: 07/11/24 21:50> Electronic medical record was reviewed. Patient presented to the ED with complaint of abdominal pain and vomiting. Vitals were within acceptable limits. Physical exam revealed tenderness to palpation in right upper quadrant. Based on the patient's history and physical exam, my differential includes but is not limited to gastritis, gastroenteritis, cholecystitis, pancreatitis, appendicitis. IV access was established by nursing staff. Patient was given zofran, morphine. CBC, BMP, lipase, LFTs, bilirubin and alk phos were obtained. Labs were pertinent for slightly elevated white count, UA with WBCs but no bacteria. Decision was made to obtain a CT-abdomen to evaluate for acute abdominal process. Patient signed out to oncoming ER physician. Bishnu: Patient was signed out to me pending CT abdomen pelvis with IV contrast. CT was obtained and inability interpreted by me revealing: IMPRESSION: 1. No evidence of appendicitis, diverticulitis or intestinal obstruction. 2. Slightly prominent pancreatic duct. Follow-up advised. 3. Fat infiltration of the liver. Patient was informed of these findings at bedside and that her symptoms are likely secondary to biliary colic. Patient states that her pain has significantly improved but she still has some mild pain and at this time she was administered an additional dose of Zofran and morphine 4 mg. Instructed that she will need to follow-up with her primary care physician and that she will be provided with a general surgeon and GI referral for further evaluation if she continues to have pain as this could be due to gallbladder/biliary colic or peptic ulcer disease. She was instructed to follow-up with her family doctor within the next 3-5 days and return to the emergency department if any new or worsening symptoms develop. Patient was discharged home in stable condition. <Gerald Goetz MD - Last Filed: 07/11/24 23:32> Lab Data Result diagrams: 07/11/24 20:28 07/11/24 20:28 <Tiffanie Parson MD - Last Filed: 07/11/24 21:50> Labs: Lab Results 07/11/24 Range/Units 20:28 WBC 13.2 H (4.5-10.0) K/mm3 RBC 4.49 (4.2-5.4) M/mm3 Hgb 14.1 (12.0-15.0) g/dL Hct 41.6 (37.0-47.0) % MCV 92.7 (80-100) fl MCH 31.4 (26-34) pg MCHC 33.9 (32-36) g/dl RDW 12.7 (11.5-14.5) % Plt Count 326 (150-375) k/mm3 MPV 9.6 (7.4-10.4) fl Immature Gran % (Auto) 0.4 (0-0.5) % Neut % (Auto) 43.8 L (45.5-73.1) % Lymph % (Auto) 45.3 H (18.3-44.2) % [place] % (Auto) 6.4 (2.6-8.5) % Eos % (Auto) 3.6 (0-4.4) % Baso % (Auto) 0.5 (0.2-1.2) % Lymph # (Auto) 5.99 H (0.9-3.2) K/mm3 [place] # (Auto) 0.9 H (0.1-0.6) K/mm3 Eos # (Auto) 0.5 H (0-0.3) K/mm3 Baso # (Auto) 0.1 (0.0-0.1) K/mm3 Abs Immat Gran (auto) 0.05 H (0.00-0.031) K/mm3 Absolute Neuts (auto) 5.8 (1.3-6.7) K/mm3 Absolute Nucleated RBC 0.000 (0.0-0.012) K/mm3 Nucleated RBC % 0.0 (0.0-0.2) % Sodium 139 (137-145) mmol/L Potassium 4.0 (3.4-5.0) mmol/L Chloride 105 (98-107) mmol/L Carbon Dioxide 25 (22-30) mmol/L Anion Gap 9 (4-12) mmol/L BUN 17 (7-17) mg/dL Creatinine 0.72 (0.7-1.0) mg/dL Estim Creat Clear Calc 83 ml/min Estimated GFR > 60 (59 - ) Glucose 88 (65-110) mg/dL Calcium 11.2 H (8.4-10.2) mg/dL Total Bilirubin 0.6 (0.2-1.3) mg/dL AST 36 (14-36) U/L ALT 26 (6-35) U/L Alkaline Phosphatase 103 (38-126) U/L Total Protein 8.0 (6.3-8.2) g/dL Albumin 4.6 (3.5-5.1) g/dL Lipase 97 (23-300) U/L Urine Color Yellow (Yellow) Urine Appearance Clear (Clear) Urine pH 6.5 (5.0-9.0) Ur Specific [place] 1.015 (1.001-1.035) Urine Protein Negative (Negative) mg/dL Urine Glucose (UA) Negative (Negative) mg/dL Urine Ketones Negative (Negative) mg/dL Ur Blood (Man) Negative (Negative) Urine Nitrate Negative (Negative) Urine Bilirubin Negative (Negative) Urine Urobilinogen 0.2 (<2.0) mg/dL Leukocyte Esterase Rfl Trace H (Negative) CARITO/UL Urine RBC 0-2 (0-2) /hpf Urine WBC 11-20 H (0-3) /hpf Ur Squamous Epith Cells None seen (Few) /hpf Urine Bacteria None seen /hpf Urine Casts 0-2 POC Urine HCG, Qual Negative (Negative) <Tiffanie Parson MD - Last Filed: 07/11/24 21:50> Lab Results 07/11/24 Range/Units 20:28 WBC 13.2 H (4.5-10.0) K/mm3 RBC 4.49 (4.2-5.4) M/mm3 Hgb 14.1 (12.0-15.0) g/dL Hct 41.6 (37.0-47.0) % MCV 92.7 (80-100) fl MCH 31.4 (26-34) pg MCHC 33.9 (32-36) g/dl RDW 12.7 (11.5-14.5) % Plt Count 326 (150-375) k/mm3 MPV 9.6 (7.4-10.4) fl Immature Gran % (Auto) 0.4 (0-0.5) % Neut % (Auto) 43.8 L (45.5-73.1) % Lymph % (Auto) 45.3 H (18.3-44.2) % [place] % (Auto) 6.4 (2.6-8.5) % Eos % (Auto) 3.6 (0-4.4) % Baso % (Auto) 0.5 (0.2-1.2) % Lymph # (Auto) 5.99 H (0.9-3.2) K/mm3 [place] # (Auto) 0.9 H (0.1-0.6) K/mm3 Eos # (Auto) 0.5 H (0-0.3) K/mm3 Baso # (Auto) 0.1 (0.0-0.1) K/mm3 Abs Immat Gran (auto) 0.05 H (0.00-0.031) K/mm3 Absolute Neuts (auto) 5.8 (1.3-6.7) K/mm3 Absolute Nucleated RBC 0.000 (0.0-0.012) K/mm3 Nucleated RBC % 0.0 (0.0-0.2) % Sodium 139 (137-145) mmol/L Potassium 4.0 (3.4-5.0) mmol/L Chloride 105 (98-107) mmol/L Carbon Dioxide 25 (22-30) mmol/L Anion Gap 9 (4-12) mmol/L BUN 17 (7-17) mg/dL Creatinine 0.72 (0.7-1.0) mg/dL Estim Creat Clear Calc 83 ml/min Estimated GFR > 60 (59 - ) Glucose 88 (65-110) mg/dL Calcium 11.2 H (8.4-10.2) mg/dL Total Bilirubin 0.6 (0.2-1.3) mg/dL AST 36 (14-36) U/L ALT 26 (6-35) U/L Alkaline Phosphatase 103 (38-126) U/L Total Protein 8.0 (6.3-8.2) g/dL Albumin 4.6 (3.5-5.1) g/dL Lipase 97 (23-300) U/L Urine Color Yellow (Yellow) Urine Appearance Clear (Clear) Urine pH 6.5 (5.0-9.0) Ur Specific [place] 1.015 (1.001-1.035) Urine Protein Negative (Negative) mg/dL Urine Glucose (UA) Negative (Negative) mg/dL Urine Ketones Negative (Negative) mg/dL Ur Blood (Man) Negative (Negative) Urine Nitrate Negative (Negative) Urine Bilirubin Negative (Negative) Urine Urobilinogen 0.2 (<2.0) mg/dL Leukocyte Esterase Rfl Trace H (Negative) CARITO/UL Urine RBC 0-2 (0-2) /hpf Urine WBC 11-20 H (0-3) /hpf Ur Squamous Epith Cells None seen (Few) /hpf Urine Bacteria None seen /hpf Urine Casts 0-2 POC Urine HCG, Qual Negative (Negative) <Gerald Goetz MD - Last Filed: 07/11/24 23:32> Imaging Data Radiologist's impression: ITS Impressions Abdomen/Pelvis CT 07/11/24 22:45 IMPRESSION: 1. No evidence of appendicitis, diverticulitis or intestinal obstruction. 2. Slightly prominent pancreatic duct. Follow-up advised. 3. Fat infiltration of the liver. <Tiffanie Parson MD - Last Filed: 07/11/24 21:50> ITS Impressions Abdomen/Pelvis CT 07/11/24 22:45 IMPRESSION: 1. No evidence of appendicitis, diverticulitis or intestinal obstruction. 2. Slightly prominent pancreatic duct. Follow-up advised. 3. Fat infiltration of the liver. <Gerald Goetz MD - Last Filed: 07/11/24 23:32> Discharge Plan Discharge Clinical Impression: RUQ abdominal pain, Nausea & vomiting <Tiffanie Parson MD - Last Filed: 07/11/24 21:50> Patient Disposition: Home <Tiffanie Parson MD - Last Filed: 07/11/24 21:50> Condition: Stable <Tiffanie Parson MD - Last Filed: 07/11/24 21:50> Instructions: Abdominal Pain (ED) <Tiffanie Parson MD - Last Filed: 07/11/24 21:50> Additional Instructions: Please follow-up with your family doctor within the next 3-5 days. Return to the emergency department if any new or worsening symptoms develop. Your right upper quadrant abdominal pain could be due to biliary colic/gallstones or peptic ulcer disease and secondary to this you were provided with referrals to both GI and General surgery. <Tiffanie Parson MD - Last Filed: 07/11/24 21:50> Patient Language: Tamazight <Tiffanie Parson MD - Last Filed: 07/11/24 21:50> Prescriptions: No Action tobramycin 0.3 % drops 1 drp RIGHT EYE Q4H 7 Days Qty: 5 0RF cefdinir 300 mg capsule 300 mg PO Q12H 5 Days Qty: 10 0RF <Tiffanie Parson MD - Last Filed: 07/11/24 21:50> Follow-up/Referrals: Simone Mejia MD [Physician] - 1 Week Romero Payne MD [Primary Care Provider] - 3 Days Surendra Russell MD [Physician] - 1 Week <Tiffanie Parson MD - Last Filed: 07/11/24 21:50> Time of Disposition: 23:16 <Tiffanie Parson MD - Last Filed: 07/11/24 21:50> 23:16 <Gerald Goetz MD - Last Filed: 07/11/24 23:32>
[2024-07-11 20:32] LABS: BEDSIDEPREGUCG Negative (Negative)
[2024-07-11 20:36] LABS: Basophils Absolute Auto 0.1 K/mm3 (0.0-0.1); Basophils Percent Auto 0.5 % (0.2-1.2); Eosinophils Absolute Auto 0.5 K/mm3 (0-0.3); Eosinophils Percent Auto 3.6 % (0-4.4); Hematocrit 41.6 % (37.0-47.0); Hemoglobin 14.1 g/dL (12.0-15.0); Immature Granulocyte Absolute 0.05 K/mm3 (0.00-0.031); Immature Granulocyte Percent A 0.4 % (0-0.5); Lymphocytes Absolute Auto 5.99 K/mm3 (0.9-3.2); Lymphocytes Percent Auto 45.3 % (18.3-44.2); Mean Corpuscular HGB Conc 33.9 g/dl (32-36); Mean Corpuscular Hemoglobin 31.4 pg (26-34); Mean Corpuscular Volume 92.7 fl (80-100); Mean Platelet Volume 9.6 fl (7.4-10.4); Monocytes Absolute Auto 0.9 K/mm3 (0.1-0.6); Monocytes Percent Auto 6.4 % (2.6-8.5); Neutrophils Absolute Auto 5.8 K/mm3 (1.3-6.7); Neutrophils Percent Auto 43.8 % (45.5-73.1); Platelet Count Result 326 k/mm3 (150-375); Red Blood Count 4.49 M/mm3 (4.2-5.4); Red Cell Distribution Width 12.7 % (11.5-14.5); White Blood Count 13.2 K/mm3 (4.5-10.0)
--- OUTSIDE RECORDS SUMMARY | 2024-07-11 20:37 | XMS_ITS | Clinical Summary ---
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
--- OUTSIDE RECORDS SUMMARY | 2024-07-11 20:37 | XMS_ITS | Continuity of Care Document ---
Author Organization [facility] Address [address] [facility] [place] [address] Phone Care Team Providers Care Renal Nurse Name Role Phone Kuldeep Casanova MD Unavailable [...] Copied on Encounter OFFICE/OUTPA TIENT VISIT, EST [facility], [address] [place], [address], [place] tel:[phone] [facility] hand numbness (chief complaint)cocai ne abuse (chief complaint)HTN (chief complaint)alcoh ol (chief complaint) Carpal Tunnel SyndromeMonone uritis of unspecified siteCocaine dependence, continuous useHypertensio n, Unspecified May-2 4-201 [address] [facility] [place], [place], [address] , [place]. tel:[phone] Referring Provider: Juanjo Stock [address], [place], [place], [address]. tel:[phone] OFFICE/OUTPA TIENT VISIT, [facility], [address], [place], [place], [address], [place] [phone] [facility] right flank pain (chief complaint)leuko cytosis (chief complaint)hypot hyroidism (chief complaint) Abdominal PainLEUKOCYTOS IS NOSHypothyroid ism [address], [address], [place], [place], [address] , [place]. [phone] Referring Provider: Juanjo Stock [address], [place], [place], [address]. tel:[phone] OFFICE/OUTPA TIENT VISIT, [facility], [address], [place], [place], [address], [place] tel:[phone] [facility] pyelonephritis (chief complaint)neuro sandra (chief complaint)anxie ty (chief complaint)back pain (chief complaint) Pyelonephritis , unspecifiedIdi opathic progressive polyneuropathy Generalized anxiety disorderLumbag o [address], [address], [place], [place], [address] , [place]. tel:[phone] Referring Provider: Juanjo Stock [address], [place], [place], [address]. tel:[phone] OFFICE/OUTPA TIENT VISIT, [facility], [address], [place], [place], [address], [place] tel:[phone] [facility] polysubstance abuse (chief complaint)back pain (chief complaint)anxie ty (chief complaint) ENCEPHALOPATHY , UNSPECIFIEDNon dependent cocaine abuse, unspecified useLumbagoGene ralized anxiety disorder [address], [address], [place], [place], [address] , [place]. tel:[phone] Referring Provider: Juanjo Stock [address], [place], [place], [address]. tel:[phone] OFFICE/OUTPA TIENT VISIT, [facility], [address], [place], [place], [address], [place] tel:[phone] [facility] back pain (chief complaint)ear pain (chief complaint)neuro sandra (chief complaint) LumbagoOtalgia , unspecifiedIdi opathic progressive polyneuropathy [address], [address], [place], [place], [address] , [place]. tel:[phone] Referring Provider: Juanjo Stock [address], [place], [place], [address]. tel:[phone] OFFICE/OUTPA TIENT VISIT, [facility], [address], [place], [place], [address], [place] tel:[phone] [facility] sore throat (chief complaint)back pain (chief complaint) Throat painLumbago [address], [address], [place], [place], [address] , [place]. tel:[phone] Referring Provider: Kuldeep Casanova, [address], [place], [place], [address]. tel:[phone] OFFICE/OUTPA TIENT VISIT, [facility], [address], [place], [address], [place] tel:[phone] [facility] back pain (chief complaint) LumbagoIdiopat hic progressive polyneuropathy [address], [address], [place], [place], [address] , [place]. tel:[phone] Referring Provider: Kuldeep Casanova, [address], [place], [place], [address]. tel:[phone] OFFICE/OUTPA TIENT VISIT, [facility], [address], [place], [place], [address], [place] tel:[phone] [facility] sore throat (chief complaint)back pain (chief complaint) Throat painLumbago [address], [place], [place], [address] , [place]. [phone] PREV VISIT, NEW, AGE 18-39 [facility], [address], [place], [place], [address], tel:[phone] [facility] Physical (chief complaint) Routine Medical ExamRoutine Medical Exam [address], [place], [place], [address] , [place]. tel:[phone] Family History Family Member Type Diagnosis Age At Onset Father Problem (finding) Other Brother Problem (finding) blood leukemia Mother Problem (finding) Alive and well Father Problem (finding) Unknown Disease Payers Payer name Insurance type Covered constitution party ID Authoriza tion(s) No Information Social [...] Mental Status Date Cognitive Assessment Orientation - [place] to time, place, person, situation.
--- OUTSIDE RECORDS SUMMARY | 2024-07-11 20:37 | XMS_ITS | Referral Summary ---
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
[2024-07-11 20:40] LABS: Add Urine Microscopic? YES; Appearance Urine Clear (Clear); Bacteria Urine None Seen /hpf; Bilirubin Urine Negative (Negative); Blood Urine Negative (Negative); Color Urine Yellow (Yellow); Glucose Urine UA Negative (Negative); Ketones Urine Negative (Negative); Leukocyte Esterase Ur Trace LEU/UL (Negative); Nitrate Urine Negative (Negative); Non Pathogenic Casts 0-2; Protein Urine Negative (Negative); RBC Urine 0-2 /hpf (0-2); Specific Grav Ur 1.015 (1.001-1.035); Squamous Epithelial Cell Urine None Seen /hpf (Few); Urobilinogen Urine 0.2 mg/dL (<2.0); pH Urine 6.5 (5.0-9.0)
[2024-07-11 20:47] LABS: Alanine Aminotransferase 26 U/L (6-35); Albumin Level 4.6 g/dL (3.5-5.1); Alkaline Phosphatase 103 U/L (38-126); Anion Gap 9 mmol/L (4-12); Aspartate Amino Transferase 36 U/L (14-36); Bilirubin,Total 0.6 mg/dL (0.2-1.3); Blood Urea Nitrogen 17 mg/dL (7-17); Calcium 11.2 mg/dL (8.4-10.2); Carbon Dioxide 25 mmol/L (22-30); Chloride 105 mmol/L (98-107); Estimated CRCL calculation 83 ml/min; Estimated Glomerular Filt Rate > 60; Glucose 88 mg/dL (65-110); Lipase 97 U/L (23-300); Sodium 139 mmol/L (137-145)
[2024-07-11] MEDS: MORPHINE SULFATE (*CRX) 4 MG/ML INJ IV PUSH (20:57)
[2024-07-11] MEDS: ONDANSETRON INJ 4 MG/2 ML VIAL IV PUSH (20:57)
[2024-07-11 21:34] VITALS: BP 127/84; PULSE 80; RESP 14; O2SAT 96
--- NOTE | 2024-07-11 22:03 | PC.NURSE ---
Pt. to CT in a wheelchair.
[2024-07-11 22:34] VITALS: BP 116/78; PULSE 72; RESP 16; O2SAT 97
[2024-07-12 00:20] VITALS: BP 116/82; PULSE 78; RESP 16; O2SAT 97
[2024-07-12] MEDS: MORPHINE SULFATE (*CRX) 4 MG/ML INJ IV PUSH (00:26)
[2024-07-12] MEDS: ONDANSETRON INJ 4 MG/2 ML VIAL IV PUSH (00:26)
== END 2024-07-12 00:20 | disposition home or self-care (01) ==
PROVIDERS: Emergency Medicine; Emergency Provider Emergency Medicine; PCP Emergency Medicine
DX: R10.11 Right upper quadrant pain (principal); R11.2 Nausea with vomiting, unspecified; G62.9 Polyneuropathy, unspecified; F41.9 Anxiety disorder, unspecified; F32.A Depression, unspecified; F17.210 Nicotine dependence, cigarettes, uncomplicated; Z90.710 Acquired absence of both cervix and uterus; K76.0 Fatty (change of) liver, not elsewhere classified; R93.3 Abnormal findings on diagnostic imaging of other parts of digestive tract
CPT/HCPCS: 36415; 74177; 80053; 81001; 81025; 83690; 85025; 87086; 96374; 96375; 96376; 99284; J2270; J2405; Q9967

== ENCOUNTER 2024-07-12 13:32 | Observation (INO) | payer OTHER, SELFPAY ==
--- NOTE | ~2024-07-12 | US_ITS ---
RIGHT UPPER QUADRANT ABDOMINAL ULTRASOUND (Doppler ultrasound interrogation techniques used as needed for this exam.) Ordering provider: Pushpa Gonzalez MD History: . Right upper quadrant pain . Comparison: None. FINDINGS: PANCREAS: Visualized portion Normal echotexture and size. The duct measures 4.5 mm. PORTAL VEIN: Hepatopedal flow demonstrated. LIVER: Normal size and echotexture. The liver measures 16.4 cm. No focal hepatic lesions or perihepat ic fluid collections are identified. BILIARY DUCTS: No intra or extrahepatic biliary dilation. Common bile duct measures 1.7mm in diameter which is normal for patient's age. GALLBLADDER: Normal. No stones, sludge, gallbladder wall thickening or pericholecystic fluid. The wal l thickness is 2.2 mm. Negative sonographic Negro's sign. IVC: Patent. Aorta: Patent. FREE FLUID: None visualized within the upper abdomen. IMPRESSION: Slightly prominent pancreatic duct. Follow-up advised. Otherwise, normal right upper quadrant ultraso und. Reviewed, dictated and finalized at location A. IMPRESSION: Slightly prominent pancreatic duct. Follow-up advised. Otherwise, normal right upper quadrant ultrasound.
--- NOTE | ~2024-07-12 | CT_ITS ---
CTA chest PE abdomen pel Ordering provider: Pushpa Gonzalez MD History: . PE, elevated troponin . Comparison: None. Technique: CT angiogram chest was performed following timed intravenous injection of contrast. Thin s lice axial images and reformatted coronal images were obtained. Three dimensional reformatted images of the chest were also obtained using a [employer] workstation. Also, CT of the abdomen and pelvis was pe rformed with IV contrast. . Automated exposure control and iterative reconstruction technique were e mployed. The dose-length product was 510.99 mGy-cm. 100 mL Omnipaque 350 was given IV. FINDINGS: CHEST: --PULMONARY ARTERIES: No pulmonary embolus. --VISUALIZED THORACIC INLET: Normal. --MEDIASTINUM: Aorta/coronary arteries: The thoracic aorta is normal. Heart/other: The heart is not enlarged. Lymph nodes: No mediastinal or hilar adenopathy. Hilar lymph node seen measuring 1.3 cm. --LUNGS: No pulmonary nodules or masses. No infiltrates or effusions. No pneumothorax. --MUSCULOSKELETAL: Bones: Age appropriate degenerative changes of the spine. Superficial soft tissues: The superficial soft tissues are normal. ABDOMEN/PELVIS: --MUSCULOSKELETAL: Superficial soft tissues: The superficial soft tissues are normal. Bones: Normal spine. --UPPER ABDOMINAL ORGANS: Liver: Normal. Gallbladder: Possible sludge. Ultrasound evaluation advised. Spleen: Normal. Stomach/duodenum: Normal. Pancreas: Normal. Slightly prominent pancreatic duct. Follow-up advised. Adrenals: Normal. Kidneys: Normal. --PELVIC ORGANS: The bladder is normal. No bladder stones. Contrast is seen in the bladder. --BOWEL AND MESENTERY: Colon: No evidence of diverticulitis.. Normal appendix. Small Bowel: Normal. No obstruction. Peritoneum/mesentery: No free air or free fluid. No mesenteric lymphadenopathy. --RETROPERITONEUM: Mild atheromatous disease of the abdominal aorta. No retroperitoneal lymphadenop athy. Lymph nodes are seen with the largest measuring 1 cm. IMPRESSION: CHEST: 1. No pulmonary embolism. 2. No acute cardiopulmonary pathology. ABDOMEN/PELVIS: 1. No evidence of appendicitis, diverticulitis or intestinal obstruction. 2. Possible gallbladder sludge. Ultrasound evaluation advised. Reviewed, dictated and finalized at location A.
[2024-07-12 13:47] VITALS: BP 113/71; PULSE 78; RESP 17; TEMP 36.6; O2SAT 98
--- OUTSIDE RECORDS SUMMARY | 2024-07-12 13:49 | XMS_ITS | Continuity of Care Document ---
Author Organization [facility] Address [address] [facility] [place] [address] Phone Care Team Providers Care Bereavement Coordinator Name Role Phone Kuldeep Casanova MD Unavailable [...] Copied on Encounter OFFICE/OUTPA TIENT VISIT, EST [facility], [address] [place], [address], [place] tel:[phone] [facility] hand numbness (chief complaint)cocai ne abuse (chief complaint)HTN (chief complaint)alcoh ol (chief complaint) Carpal Tunnel SyndromeMonone uritis of unspecified siteCocaine dependence, continuous useHypertensio n, Unspecified May-2 4-201 5 [address] [place], [address] , [place]. tel:[phone] Referring Provider: Juanjo Stock [address], [place], [place], [address]. tel:[phone] OFFICE/OUTPA TIENT VISIT, [facility], [address], [place], [place], [address], [place] [phone] [facility] right flank pain (chief complaint)leuko cytosis (chief complaint)hypot hyroidism (chief complaint) Abdominal PainLEUKOCYTOS IS NOSHypothyroid ism 4 [address]. [address], [place], [place], [address] , [place]. [phone] Referring Provider: Juanjo Stokc [address], [place], [place], [address]. tel:[phone] OFFICE/OUTPA TIENT VISIT, [facility], [address], [place], [place], [address], [place] tel:[phone] [facility] pyelonephritis (chief complaint)neuro sandra (chief complaint)anxie ty (chief complaint)back pain (chief complaint) Pyelonephritis , unspecifiedIdi opathic progressive polyneuropathy Generalized anxiety disorderLumbag o 4 [address]. [address], [place], [place], [address] , [place]. tel:[phone] Referring Provider: Juanjo Stock [address], [place], [place], [address]. tel:[phone] OFFICE/OUTPA TIENT VISIT, [facility], [address], [place], [place], [address], [place] tel:[phone] [facility] polysubstance abuse (chief complaint)back pain (chief complaint)anxie ty (chief complaint) ENCEPHALOPATHY , UNSPECIFIEDNon dependent cocaine abuse, unspecified useLumbagoGene ralized anxiety disorder 4 [address], [place], [place], [address] , [place]. tel:[phone] Referring Provider: Juanjo Stock [address], [place], [place], [address]. tel:[phone] OFFICE/OUTPA TIENT VISIT, [facility], [address], [place], [place], [address], [place] tel:[phone] [facility] back pain (chief complaint)ear pain (chief complaint)neuro sandra (chief complaint) LumbagoOtalgia , unspecifiedIdi opathic progressive polyneuropathy 4 [address], [place], [place], [address] , [place]. tel:[phone] Referring Provider: Juanjo Stock [address], [place], [place], [address]. tel:[phone] OFFICE/OUTPA TIENT VISIT, [facility], [address], [place], [place], [address], [place] tel:[phone] [facility] sore throat (chief complaint)back pain (chief complaint) Throat painLumbago 4 [address], [place], [place], [address] , [place]. tel:[phone] Referring Provider: Kuldeep Casanova, [address], [place], [place], [address]. tel:[phone] OFFICE/OUTPA TIENT VISIT, [facility], [address], [place], [place], [address], [place] tel:[phone] [facility] back pain (chief complaint) LumbagoIdiopat hic progressive polyneuropathy 3 [address], [place], [place], [address] , [place]. tel:[phone] Referring Provider: Kuldeep Casanova, [address], [place], [place], [address]. tel:[phone] OFFICE/OUTPA TIENT VISIT, [facility], [address], [place], [place], [address], [place] tel:[phone] [facility] sore throat (chief complaint)back pain (chief complaint) Throat painLumbago 3 [address], [place], [place], [address] , [place]. [phone] PREV VISIT, NEW, AGE 18-39 [facility], [address], [place], [place], [address], tel:[phone] [facility] Physical (chief complaint) Routine Medical ExamRoutine Medical Exam 3 [address]. [address], [place], [place], [address] , [place]. tel:[phone] Family History Family Member Type Diagnosis Age [...] Mental Status Date Cognitive Assessment Orientation - [place] ed to time, place, person, situation.
--- OUTSIDE RECORDS SUMMARY | 2024-07-12 13:49 | XMS_ITS | Referral Summary ---
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
--- OUTSIDE RECORDS SUMMARY | 2024-07-12 13:49 | XMS_ITS | Clinical Summary ---
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
--- NOTE | 2024-07-12 13:56 | ED_ITS ---
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 Does not take medicine at home, smoke cigarettes, drink alcohol occasionally. Patient denies any fever or chills or nausea or vomiting Related Data Home Medications ?Medication ?Instructions ?Recorded ?Confirmed ?Last Taken ?Type aspirin 81 mg tablet,delayed 81 mg PO DAILY PRN pain 07/12/24 07/12/24 07/10/24 History release (Adult Low Dose Aspirin) vgnnnsl-yqabrbaayikws-ljsupcbp 250 1 tablet PO Q6H PRN pain 07/12/24 07/12/24 07/12/24 History mg-250 mg-65 mg tablet (Excedrin Extra Strength) ibuprofen 200 mg tablet (Advil) 800 mg PO Q6H PRN pain 07/12/24 07/12/24 07/08/24 History Allergies Allergy/AdvReac Type Severity Reaction Status Date / Time Sulfa (Sulfonamide Allergy Unknown RASH, Verified 04/15/24 11:54 Antibiotics) VOMITING Review of Systems 2 Review of Systems: All systems reviewed & are unremarkable except as noted in HPI and below PMFSH Past Medical History Medical History Methadone dependence Opioid use Vicodin Frequent UTI Methadone dependence Opioid use Vicodin Methadone dependence Opioid use Vicodin Toenail fungus Neuropathy Substance abuse On methadone Anxiety Depression Herpes simplex Surgical History Surgical History H/O: hysterectomy Hx of tonsillectomy Family History Family History Other No significant family history Social History Social History Smoking packs per day: 1 Smoking cigarettes per day: 20.0 Years smoked: 20 Smoking pack-years: 20.00 Smoking status: Current every day smoker Tobacco type: cigarettes Second hand tobacco smoke exposure: No Alcohol intake: current Drinks per week: 1 Substance use: former Substance use type: methamphetamine Other substance usage details: Deirdre denies using recreational drugs at this time Last use: 2022 Do You Feel Safe in your Home?: Yes Lack of Transportation: No Lack of Food: Never True Current Housing: I Have Housing Concerned About Future Housing: No Difficulty Paying Gas/Electric Bills: No Difficulty Paying for Meds: No Currently Unemployed: No Education: Trade/Vocational Certificate Difficulty w/ Childcare or Family Care: No Living arrangements: with family Occupation/Education: occupation Gender identity (if verbalized by the patient): Female Spiritual care concerns: No Exam 2 Narrative: General appearance: Well-developed, well-nourished Skin: Normal color Head: Normocephalic, nontraumatic Eyes: Clear conjunctiva ENT: Oropharynx normal, ears normal, nose normal Neck: Supple, nontender Chest and respiratory: Airway patent, no respiratory distress, no accessory muscle use Heart: Regular rate/rhythm Abdomen: Soft, mild right upper quadrant tenderness no organomegaly, quiet bowel sounds Vascular: Normal peripheral pulses, normal capillary refill. 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 is normal as tested, no gross motor deficit Course Consultations Consultation #1: DR BAIG ADMIT TO HOSPITALIST Date: 07/12/24 Vital Signs Vital signs: Vital Signs Temperature 36.6 C 07/12/24 13:47 Pulse Rate 78 07/12/24 13:47 Respiratory Rate 17 07/12/24 13:47 Blood Pressure 113/71 07/12/24 13:47 Pulse Oximetry 98 07/12/24 13:47 Oxygen Delivery Room Air 07/12/24 13:47 Temperature 36.4 C L 07/13/24 05:39 Pulse Rate 86 07/13/24 05:39 Respiratory Rate 16 07/13/24 05:39 Blood Pressure 96/67 L 07/13/24 05:39 Pulse Oximetry 95 07/13/24 05:39 Oxygen Delivery Room Air 07/13/24 00:02 MDM - Abdominal Pain MDM Narrative Medical decision making narrative: Patient came to the ED with right upper quadrant pain Vital signs are stable Physical examination showing slight tenderness right upper quadrant Differential diagnosis include right basal pneumonia, pulmonary embolism, cholecystitis, diverticulitis, colitis, constipation, appendicitis, urinary tract infection. Blood workup today includes CBC, CMP, lipase, D-dimer, showed elevated D-dimer 0.66, elevated lipase of 432 GALLBLADDER ULTRASOUND SHOWED SLIGHTLY PROMINENT PANCREATIC DUCT. FOLLOW-UP ADVICE. CTA CHEST ABDOMEN AND PELVIS SHOWED POSSIBLE GALLBLADDER SLUDGE. ULTRASOUND EVALUATION ADVISED. DIAGNOSIS RIGHT UPPER QUADRANT PAIN, ELEVATED LIPASE ADMIT TO HOSPITALIST, DISCUSSED WITH FRET SAW OPERATOR. Differential Diagnosis Differential diagnosis: Likely abdominal pain, calculus of kidney and pancreatitis Medical Records Attestation: I reviewed the patient's medical records. Lab Data Attestation: I reviewed the patient's lab results. 07/13/24 06:23 07/13/24 06:23 Labs: Lab Results 07/12/24 Range/Units 14:13 WBC 10.2 H (4.5-10.0) K/mm3 RBC 4.67 (4.2-5.4) M/mm3 Hgb 14.5 (12.0-15.0) g/dL Hct 43.4 (37.0-47.0) % MCV 92.9 (80-100) fl MCH 31.0 (26-34) pg MCHC 33.4 (32-36) g/dl RDW 12.8 (11.5-14.5) % Plt Count 336 (150-375) k/mm3 MPV 9.6 (7.4-10.4) fl Immature Gran % (Auto) 0.4 (0-0.5) % Neut % (Auto) 40.0 L (45.5-73.1) % Lymph % (Auto) 46.9 H (18.3-44.2) % Briscoe % (Auto) 7.9 (2.6-8.5) % Eos % (Auto) 4.2 (0-4.4) % Baso % (Auto) 0.6 (0.2-1.2) % Lymph # (Auto) 4.78 H (0.9-3.2) K/mm3 Briscoe # (Auto) 0.8 H (0.1-0.6) K/mm3 Eos # (Auto) 0.4 H (0-0.3) K/mm3 Baso # (Auto) 0.1 (0.0-0.1) K/mm3 Abs Immat Gran (auto) 0.04 H (0.00-0.031) K/mm3 Absolute Neuts (auto) 4.1 (1.3-6.7) K/mm3 Absolute Nucleated RBC 0.000 (0.0-0.012) K/mm3 Nucleated RBC % 0.0 (0.0-0.2) % D-Dimer 0.66 H (<0.48) ug/mL Sodium 139 (137-145) mmol/L Potassium 4.2 (3.4-5.0) mmol/L Chloride 104 (98-107) mmol/L Carbon Dioxide 27 (22-30) mmol/L Anion Gap 8 (4-12) mmol/L BUN 20 H (7-17) mg/dL Creatinine 0.87 (0.7-1.0) mg/dL Estim Creat Clear Calc 62 ml/min Estimated GFR > 60 (59 - ) Glucose 94 (65-110) mg/dL Calcium 10.1 (8.4-10.2) mg/dL Total Bilirubin 0.6 (0.2-1.3) mg/dL AST 32 (14-36) U/L ALT 28 (6-35) U/L Alkaline Phosphatase 96 (38-126) U/L Total Protein 8.0 (6.3-8.2) g/dL Albumin 4.7 (3.5-5.1) g/dL Lipase 432 H (23-300) U/L Imaging Data Radiologist's impression: ITS Impressions Upper Quadrant Ultrasound 07/12/24 15:10 IMPRESSION: Slightly prominent pancreatic duct. Follow-up advised. Otherwise, normal right upper quadrant ultrasound. Chest/Abdomen/Pelvis CTA 07/12/24 16:26 IMPRESSION: CHEST: 1. No pulmonary embolism. 2. No acute cardiopulmonary pathology. ABDOMEN/PELVIS: 1. No evidence of appendicitis, diverticulitis or intestinal obstruction. 2. Possible gallbladder sludge. Ultrasound evaluation advised. Critical Care Time Critical Care Time Critical Care Time: No Discharge Plan Discharge Clinical Impression: Abdominal pain, Pancreatitis Patient Disposition: Still a Patient Condition: Stable
[2024-07-12 14:19] LABS: Basophils Absolute Auto 0.1 K/mm3 (0.0-0.1); Basophils Percent Auto 0.6 % (0.2-1.2); Eosinophils Absolute Auto 0.4 K/mm3 (0-0.3); Eosinophils Percent Auto 4.2 % (0-4.4); Hematocrit 43.4 % (37.0-47.0); Hemoglobin 14.5 g/dL (12.0-15.0); Immature Granulocyte Absolute 0.04 K/mm3 (0.00-0.031); Immature Granulocyte Percent A 0.4 % (0-0.5); Lymphocytes Absolute Auto 4.78 K/mm3 (0.9-3.2); Lymphocytes Percent Auto 46.9 % (18.3-44.2); Mean Corpuscular HGB Conc 33.4 g/dl (32-36); Mean Corpuscular Volume 92.9 fl (80-100); Mean Platelet Volume 9.6 fl (7.4-10.4); Monocytes Absolute Auto 0.8 K/mm3 (0.1-0.6); Monocytes Percent Auto 7.9 % (2.6-8.5); Neutrophils Absolute Auto 4.1 K/mm3 (1.3-6.7); Platelet Count Result 336 k/mm3 (150-375); Red Blood Count 4.67 M/mm3 (4.2-5.4); Red Cell Distribution Width 12.8 % (11.5-14.5); White Blood Count 10.2 K/mm3 (4.5-10.0)
--- OUTSIDE RECORDS SUMMARY | 2024-07-12 14:20 | XMS_ITS | Continuity of Care Document ---
Author Organization [facility] Address [address] [facility] [place] [address] Phone Care Team Providers Care Ancillary Services Manager Therapy Name Role Phone Kuldeep Casanova MD Unavailable [...] Copied on Encounter OFFICE/OUTPA TIENT VISIT, EST [facility], [address] [place], [place], [address], [place] tel:[phone] [facility] hand numbness (chief complaint)cocai ne abuse (chief complaint)HTN (chief complaint)alcoh ol (chief complaint) Carpal Tunnel SyndromeMonone uritis of unspecified siteCocaine dependence, continuous useHypertensio n, Unspecified May-2 4-201 5 [address] [place], [address] , [place]. tel:[phone] Referring Provider: Juanjo Stock [address], [place], [place], [address]. tel:[phone] OFFICE/OUTPA TIENT VISIT, [facility], [address], [place], [place], [address], [place] [phone] [facility] right flank pain (chief complaint)leuko cytosis (chief complaint)hypot hyroidism (chief complaint) Abdominal PainLEUKOCYTOS IS NOSHypothyroid ism 4 [address]. [address], [place], [place], [address] , [place]. [phone] Referring Provider: Juanjo [address], [place], [place], [address]. tel:[phone] OFFICE/OUTPA TIENT VISIT, [facility], [address], [place], [place], [address], [place] tel:[phone] [facility] pyelonephritis (chief complaint)neuro sandra (chief complaint)anxie ty (chief complaint)back pain (chief complaint) Pyelonephritis , unspecifiedIdi opathic progressive polyneuropathy Generalized anxiety disorderLumbag o 4 [address], [place], [place], [address] , [place]. [phone] Referring Provider: Juanjo Stock [address], [place], [place], [address]. tel:[phone] OFFICE/OUTPA TIENT VISIT, [facility], [address], [place], [place], [address], [place] tel:[phone] [facility] polysubstance abuse (chief complaint)back pain (chief complaint)anxie ty (chief complaint) ENCEPHALOPATHY , UNSPECIFIEDNon dependent cocaine abuse, unspecified useLumbagoGene ralized anxiety disorder 4 [address], [place], [place], [address] , [place]. [phone] Referring Provider: Juanjo Stock [address], [place], [place], [address]. tel:[phone] OFFICE/OUTPA TIENT VISIT, [facility], [address], [place], [place], [address], [place] tel:[phone] [facility] back pain (chief complaint)ear pain (chief complaint)neuro sandra (chief complaint) LumbagoOtalgia , unspecifiedIdi opathic progressive polyneuropathy 4 [address], [place], [place], [address] , [place]. tel:[phone] Referring Provider: Juanjo Stock [address], [place], [place], [address]. tel:[phone] OFFICE/OUTPA TIENT VISIT, [facility], [address], [place], [place], [address], [place] tel:[phone] [facility] sore throat (chief complaint)back pain (chief complaint) Throat painLumbago 4 [address], [place], [place], [address] , [place]. tel:[phone] Referring Provider: Kuldeep Casanova, [address], [place], [place], [address]. tel:[phone] OFFICE/OUTPA TIENT VISIT, [facility], [address], [place], [place], [address], [place] tel:[phone] [facility] back pain (chief complaint) LumbagoIdiopat hic progressive polyneuropathy 3 [address], [place], [place], [address] , [place]. tel:[phone] Referring Provider: Kuldeep Casanova, [address], [place], [place], [address]. tel:[phone] OFFICE/OUTPA TIENT VISIT, [facility], [address], [place], [place], [address], [place] tel:[phone] [facility] sore throat (chief complaint)back pain (chief complaint) Throat painLumbago 3 [address], [place], [place], [address] , [place]. [phone] PREV VISIT, NEW, AGE 18-39 [facility], [address], [place], [place], [address], tel:[phone] [facility] Physical (chief complaint) Routine Medical ExamRoutine Medical Exam 3 [address], [place], [place], [address] , [place]. tel:[phone] Family History Family Member Type Diagnosis Age [...] Mental Status Date Cognitive Assessment Orientation - [place] ed to time, place, person, situation.
--- OUTSIDE RECORDS SUMMARY | 2024-07-12 14:20 | XMS_ITS | Clinical Summary ---
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
--- OUTSIDE RECORDS SUMMARY | 2024-07-12 14:20 | XMS_ITS | Referral Summary ---
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
[2024-07-12 14:29] LABS: Alanine Aminotransferase 28 U/L (6-35); Albumin Level 4.7 g/dL (3.5-5.1); Alkaline Phosphatase 96 U/L (38-126); Anion Gap 8 mmol/L (4-12); Aspartate Amino Transferase 32 U/L (14-36); Bilirubin,Total 0.6 mg/dL (0.2-1.3); Blood Urea Nitrogen 20 mg/dL (7-17); Calcium 10.1 mg/dL (8.4-10.2); Carbon Dioxide 27 mmol/L (22-30); Chloride 104 mmol/L (98-107); Estimated CRCL calculation 62 ml/min; Estimated Glomerular Filt Rate > 60; Glucose 94 mg/dL (65-110); Lipase 432 U/L (23-300); Potassium 4.2 mmol/L (3.4-5.0); Sodium 139 mmol/L (137-145)
[2024-07-12] MEDS: ONDANSETRON INJ 4 MG/2 ML VIAL IV PUSH ×3 (14:39→23:22)
[2024-07-12] MEDS: HYDROmorphone HCL INJ (*CRX) 2 MG/ML VIAL 0.5 MG IV PUSH ×3 (14:39→23:22)
[2024-07-12 15:33] LABS: D Dimer 0.66 ug/mL (<0.48)
[2024-07-12 15:41] VITALS: BP 127/81; PULSE 72; RESP 16; O2SAT 98
[2024-07-12] MEDS: BELLADONNA ALK/PHENOB ELIX 10 ML, MAG HYDROX/ALUMINUM HYD/SIMETH 30 ML, LIDOCAINE 2% VI... PO (18:13)
[2024-07-12 18:54] VITALS: BP 108/61; PULSE 72; RESP 16; O2SAT 98
[2024-07-12] MEDS: LACTATED RINGERS 1,000 ML 125 ML IV CONT (19:11)
[2024-07-12] MEDS: NICOTINE (*PBKC) 21 MG PATCH 1 PATCH TRANSDERM (19:11)
[2024-07-12 20:56] LABS: Amylase 97 U/L (30-110)
[2024-07-12 22:43] VITALS: BP 108/56; PULSE 62; RESP 15; O2SAT 98
[2024-07-12 23:05] VITALS: BMI 24.0
--- NOTE | 2024-07-12 23:06 | ADMGEN ---
This patient, Deirdre Barrios, was admitted to [facility] Surg Room 319-01. Patient/family oriented to hospital policies and general routines including ID bracelet, bed and alarms, visiting hours, pain management, procedures, bathroom and other care routines, personal items, smoking policy, room service/diet, and visiting hours. Information on how to activate the Rapid Response Team has been discussed. Patient/Family are encouraged to report perceived risks to care and to ask questions if they do not understand what they are told or what they should do.
[2024-07-12 23:11] VITALS: BP 95/69; PULSE 72; RESP 16; TEMP 36.3; O2SAT 95
[2024-07-13 05:39] VITALS: BP 96/67; PULSE 86; RESP 16; TEMP 36.4; O2SAT 95
[2024-07-13] MEDS: LACTATED RINGERS 1,000 ML 125 ML IV CONT (05:51)
[2024-07-13 06:47] LABS: Alanine Aminotransferase 24 U/L (6-35); Alkaline Phosphatase 88 U/L (38-126); Anion Gap 8 mmol/L (4-12); Aspartate Amino Transferase 23 U/L (14-36); Bilirubin,Total 0.7 mg/dL (0.2-1.3); Blood Urea Nitrogen 21 mg/dL (7-17); Calcium 8.9 mg/dL (8.4-10.2); Carbon Dioxide 26 mmol/L (22-30); Chloride 104 mmol/L (98-107); Estimated CRCL calculation 67 ml/min; Estimated Glomerular Filt Rate > 60; Glucose 92 mg/dL (65-110); Lipase 118 U/L (23-300); Potassium 3.9 mmol/L (3.4-5.0); Sodium 138 mmol/L (137-145)
--- NOTE | 2024-07-13 06:52 | PM.IMHP ---
H&P: HPI History of Present Illness Date/Time: 07/13/24 06:52 Chief Complaint: abdominal pain Narrative: 44 year old female with past medical history of presents to the hospital with right upper quadrant pain. ED workup: CBC with WBC 10.2, H/H 14.5/43.4, and PLT 336. CMP with Na 139, K 4.2. BUN/Cr 20/0.87. LFT WNL. Lipase 432. UA unremarkable. Abdomen/pelvis CT showed no evidence of appendicitis, diverticulitis, or intestinal obstruction. Slightly prominent pancreatic duct and fat infiltration. RUQ US showed slightly prominent pancreatic duct. Chest/abdomen/pelvis CTA showed no PE, no cardiopulmonary pathology, no evidence of appendicitis, diverticulitis or intestinal obstruction, and possible gallbladder sludge. Review of Systems Review of Systems: All systems reviewed & are unremarkable except as noted in HPI and below PMFSH Past Medical History Medical History Methadone dependence Opioid use Vicodin Frequent UTI Methadone dependence Opioid use Vicodin Methadone dependence Opioid use Vicodin Toenail fungus Neuropathy Substance abuse On methadone Anxiety Depression Herpes simplex Surgical History Surgical History H/O: hysterectomy Hx of tonsillectomy Family History Family History Other No significant family history Social History Social History Smoking packs per day: 1 Smoking cigarettes per day: 20.0 Years smoked: 20 Smoking pack-years: 20.00 Smoking status: Current every day smoker Tobacco type: cigarettes Second hand tobacco smoke exposure: No Alcohol intake: current Drinks per week: 1 Substance use: former Substance use type: methamphetamine Other substance usage details: Deirdre denies using recreational drugs at this time Last use: 2022 Do You Feel Safe in your Home?: Yes Lack of Transportation: No Lack of Food: Never True Current Housing: I Have Housing Concerned About Future Housing: No Difficulty Paying Gas/Electric Bills: No Difficulty Paying for Meds: No Currently Unemployed: No Education: Trade/Vocational Certificate Difficulty w/ Childcare or Family Care: No Living arrangements: with family Occupation/Education: occupation Gender identity (if verbalized by the patient): Female Spiritual care concerns: No Meds Home Medications and Allergies Home Medications ?Medication ?Instructions ?Recorded ?Confirmed ?Type aspirin 81 mg tablet,delayed 81 mg PO DAILY PRN pain 07/12/24 07/12/24 History release (Adult Low Dose Aspirin) [id number]-[id number]-tqfnutgl 250 1 tablet PO Q6H PRN pain 07/12/24 07/12/24 History mg-250 mg-65 mg tablet (Excedrin Extra Strength) ibuprofen 200 mg tablet (Advil) 800 mg PO Q6H PRN pain 07/12/24 07/12/24 History Allergies Allergy/AdvReac Type Severity Reaction Status Date / Time Sulfa (Sulfonamide Allergy Unknown RASH, Verified 04/15/24 11:54 Antibiotics) VOMITING Vital Signs Vital Signs - 24 hr 07/12/24 13:47 07/12/24 15:41 07/12/24 18:54 Temperature 97.9 F Pulse Rate 78 72 72 Respiratory Rate 17 16 16 Blood Pressure 113/71 127/81 108/61 Pulse Oximetry 98 98 98 Oxygen Delivery Room Air 07/12/24 22:43 07/12/24 23:11 07/13/24 00:02 Temperature 97.3 F L Pulse Rate 62 72 Respiratory Rate 15 16 Blood Pressure 108/56 L 95/69 L Pulse Oximetry 98 95 Oxygen Delivery Room Air 07/13/24 05:39 Temperature 97.5 F L Pulse Rate 86 Respiratory Rate 16 Blood Pressure 96/67 L Pulse Oximetry 95 Oxygen Delivery Exam Narrative: AF General: well nourished, well-developed female in no acute respiratory distress who is nontoxic appearing, lying semi recumbent in bed. HEENT: Normocephalic. Atraumatic. Pupils equal round reactive to light. Extraocular movement intact. Sclera clear and anicteric. Nares patent. No oral lesions. Moist mucous membranes. Tongue is midline. Palate alissa symmetrically. No facial asymmetry. Neck: Neck was supple. No dominant adenopathy, thyromegaly or masses. 2+ carotid upstrokes without bruits. Chest: Lungs are clear to auscultation bilaterlly. No wheezes or crackles. CV: Heart was regular rate and rhythm. S1-S2. No murmurs, gallops, or rubs. Abd: Abdomen was soft. Nontender. Nondistended. Postive bowel sounds. No organomegaly or masses. Ext: No clubbing, cyanosis, or edema. 2+ DP pulses bilaterally. Neuro: Patient is alert and oriented x4. Strenth is 5/5 in both upper and lower extremities. Cranial nerves 2-12 are intact. Speech is clear. Psych: Normal nood and affect. Patient is pleasant and cooperative. Skin: Warm and dry. No rashes noted. H&P: Results Labs Labs: Short CBC 07/12/24 Range/Units 14:13 WBC 10.2 H (4.5-10.0) K/mm3 Hgb 14.5 (12.0-15.0) g/dL Hct 43.4 (37.0-47.0) % Plt Count 336 (150-375) k/mm3 BMP 07/12/24 07/13/24 14:13 06:23 Sodium 139 138 Potassium 4.2 3.9 Chloride 104 104 Carbon Dioxide 27 26 BUN 20 H 21 H Creatinine 0.87 0.80 Glucose 94 92 Calcium 10.1 8.9 Liver Function 07/12/24 07/13/24 Range/Units 14:13 06:23 Total Bilirubin 0.6 0.7 (0.2-1.3) mg/dL AST 32 23 (14-36) U/L ALT 28 24 (6-35) U/L Alkaline Phosphatase 96 88 (38-126) U/L Albumin 4.7 4.0 (3.5-5.1) g/dL Assessment and Plan Assessment and plan (1) Dilated pancreatic duct: Code(s): K86.89 - Other specified diseases of pancreas Status: Acute Assessment and Plan: Patient endorsing increased abdominal pain Patient denies excessive alcohol use Possibly secondary to gallbladder sludge Diet: NPO, LR @ 125 ml/hr Lipase 432 > 118. LFT WNL. Abdomen/pelvis CT showed no evidence of appendicitis, diverticulitis, or intestinal obstruction. Slightly prominent pancreatic duct and fat infiltration. RUQ US showed slightly prominent pancreatic duct. Chest/abdomen/pelvis CTA showed no PE, no cardiopulmonary pathology, no evidence of appendicitis, diverticulitis or intestinal obstruction, and possible gallbladder sludge. GI consulted appreciate recommendations
[2024-07-13 07:00] LABS: Hematocrit 39.6 % (37.0-47.0); Hemoglobin 13.1 g/dL (12.0-15.0); Mean Corpuscular HGB Conc 33.1 g/dl (32-36); Mean Corpuscular Volume 93.8 fl (80-100); Mean Platelet Volume 9.9 fl (7.4-10.4); Platelet Count Result 286 k/mm3 (150-375); Red Blood Count 4.22 M/mm3 (4.2-5.4); Red Cell Distribution Width 12.8 % (11.5-14.5); White Blood Count 9.3 K/mm3 (4.5-10.0)
--- NOTE | 2024-07-13 07:04 | P.CONGI_ITS ---
Assessment and Plan Assessment and plan (1) RUQ abdominal pain: Code(s): R10.11 - Right upper quadrant pain Status: Acute Assessment and Plan: The clinical presentation of the patient's pain is most compatible with a musculoskeletal origin. The constant nature of the pain, along with its exacerbation and relief depending on position, are strongly suggestive of this diagnosis. There is no clinical or laboratory evidence to support an acute catastrophic or visceral process, including pancreatitis, appendicitis, perforation, or cholecystitis. All laboratory values are within the normal range, with the exception of an isolated elevation in lipase that does not correlate with her clinical picture. The patient's history of narcotic dependence may contribute to a lower pain tolerance. I would recommend against the use of Dilaudid and suggest initiating an NSAID such as celecoxib 200 mg twice daily. Repeat lipase measurement in a few days is indicated. The patient can be discharged with a prescription for celecoxib and outpatient follow-up in the Gastroenterology clinic. She has my contact information and is willing to follow up as an outpatient. GI Consult Note Consult date/time: 07/13/24 07:04 Reason for consult: right upper quadrant pain HPI: Deirdre Barrios, a 44-year-old female with a history of prior Vicodin dependence (last methadone clinic participation five years ago, reports no analgesic use since), was admitted yesterday for a 24-hour history of right upper quadrant pain. She characterizes the pain as sharp, electric-like, constant, 7/10 in intensity, worse with sitting, and better when lying down. She denies associated nausea, vomiting, or changes in her normal bowel habits, as well as jaundice or dark urine. Admission labs: Hemoglobin 14.5, hematocrit 43.4, platelets 336, BUN 20, creatinine 0.87, AST 32, ALT 28, bilirubin 0.6. Imaging findings are somewhat discordant: CT suggested possible gallbladder sludge, while ultrasound described a normal gallbladder with a slightly prominent pancreatic duct; the CT showed no pancreatic abnormalities. Her lipase increased from 97 on 07/11/2024 to 432 yesterday. This morning, the patient reports pain relief with Dilaudid. Review of Systems 2 Review of Systems: All systems reviewed & are unremarkable except as noted in HPI and below PMFSH Past Medical History Medical History Methadone dependence Opioid use Vicodin Frequent UTI Methadone dependence Opioid use Vicodin Methadone dependence Opioid use Vicodin Toenail fungus Neuropathy Substance abuse On methadone Anxiety Depression Herpes simplex Surgical History Surgical History H/O: hysterectomy Hx of tonsillectomy Family History Family History Other No significant family history Social History Social History Smoking packs per day: 1 Smoking cigarettes per day: 20.0 Years smoked: 20 Smoking pack-years: 20.00 Smoking status: Current every day smoker Tobacco type: cigarettes Second hand tobacco smoke exposure: No Alcohol intake: current Drinks per week: 1 Substance use: former Substance use type: methamphetamine Other substance usage details: Deirdre denies using recreational drugs at this time Last use: 2022 Do You Feel Safe in your Home?: Yes Lack of Transportation: No Lack of Food: Never True Current Housing: I Have Housing Concerned About Future Housing: No Difficulty Paying Gas/Electric Bills: No Difficulty Paying for Meds: No Currently Unemployed: No Education: Trade/Vocational Certificate Difficulty w/ Childcare or Family Care: No Living arrangements: with family Occupation/Education: occupation Gender identity (if verbalized by the patient): Female Spiritual care concerns: No Meds Home Medications and Allergies Home Medications ?Medication ?Instructions ?Recorded ?Confirmed ?Type aspirin 81 mg tablet,delayed 81 mg PO DAILY PRN pain 07/12/24 07/12/24 History release (Adult Low Dose Aspirin) [id number]-rvwggjqsrdsfh-hzuxuhsd 250 1 tablet PO Q6H PRN pain 07/12/24 07/12/24 History mg-250 mg-65 mg tablet (Excedrin Extra Strength) ibuprofen 200 mg tablet (Advil) 800 mg PO Q6H PRN pain 07/12/24 07/12/24 History Allergies Allergy/AdvReac Type Severity Reaction Status Date / Time Sulfa (Sulfonamide Allergy Unknown RASH, Verified 04/15/24 11:54 Antibiotics) VOMITING Vital Signs Vital Signs - 24 hr 07/12/24 13:47 07/12/24 15:41 07/12/24 18:54 Temperature 97.9 F Pulse Rate 78 72 72 Respiratory Rate 17 16 16 Blood Pressure 113/71 127/81 108/61 Pulse Oximetry 98 98 98 Oxygen Delivery Room Air 07/12/24 22:43 07/12/24 23:11 07/13/24 00:02 Temperature 97.3 F L Pulse Rate 62 72 Respiratory Rate 15 16 Blood Pressure 108/56 L 95/69 L Pulse Oximetry 98 95 Oxygen Delivery Room Air 07/13/24 05:39 Temperature 97.5 F L Pulse Rate 86 Respiratory Rate 16 Blood Pressure 96/67 L Pulse Oximetry 95 Oxygen Delivery Exam 2 Narrative: Abdomen: Soft, nontender, nondistended, no hepatosplenomegaly, no rebound, no masses. Rest of the examination within normal limits. Results Labs 07/13/24 06:23 07/13/24 06:23 Labs: Short CBC 07/12/24 07/13/24 Range/Units 14:13 06:23 WBC 10.2 H 9.3 (4.5-10.0) K/mm3 Hgb 14.5 13.1 (12.0-15.0) g/dL Hct 43.4 39.6 (37.0-47.0) % Plt Count 336 286 (150-375) k/mm3 [facility] 07/12/24 07/13/24 14:13 06:23 Sodium 139 138 Potassium 4.2 3.9 Chloride 104 104 Carbon Dioxide 27 26 BUN 20 H 21 H Creatinine 0.87 0.80 Glucose 94 92 Calcium 10.1 8.9 Liver Function 07/12/24 07/13/24 Range/Units 14:13 06:23 Total Bilirubin 0.6 0.7 (0.2-1.3) mg/dL AST 32 23 (14-36) U/L ALT 28 24 (6-35) U/L Alkaline Phosphatase 96 88 (38-126) U/L Albumin 4.7 4.0 (3.5-5.1) g/dL
--- NOTE | 2024-07-13 07:23 | P.SS_ITS ---
Same Day Admit/Disch: HPI History of Present Illness Chief complaint: Right upper quadrant pain with elevated lipase Narrative: Deirdre Barrios is a 44 year old female with past medical history of opioid abuse (currently sober and off of methadone treatment) who presents to the hospital for right upper quadrant pain. She was recently seen in the ED on 07/11 for similar symptoms of nausea/vomiting and abdominal pain. During that visit labs and imaging were seemingly unremarkable and she was discharged home. Nawaf dickerson states that since being discharged she has continued to have right upper quadrant pain worsened with meals and position changes. She is unsure what type of foods worsen the pain. She states pain is better when lying down. She describes the pain as intermittent sharp pain that does not radiate. She endorses nausea but has not had any vomiting or diarrhea. She denies excessive alcohol use but does regularly take ibuprofen. She denies any fevers. She also denies any urinary symptoms including dysuria, burning sensation and hematuria. Patient has no other complaints denying chest pain, shortness of breath, palpitations. ED workup: CBC with WBC 10.2, H/H 14.5/43.5, PLT 336. CMP with Na 139 and K 4.2. BUN/Cr 20/0.87. LFT WNL. Lipase 432. D dimer 0.66. UA with trace leukocytes and 11-20 WBC otherwise unremarkable. Abdomen/pelvis CT showed no evidence of appendicitis, diverticulitis, or intestinal obstruction. Slightly prominent pancreatic duct and fat infiltration. RUQ US showed slightly prominent pancreatic duct. Chest/abdomen/pelvis CTA showed no PE, no cardiopulmonary pathology, no evidence of appendicitis, diverticulitis or intestinal obstruction, and possible gallbladder sludge. [facility] Past Medical History Medical History Methadone dependence Opioid use Vicodin Frequent UTI Methadone dependence Opioid use Vicodin Methadone dependence Opioid use Vicodin Toenail fungus Neuropathy Substance abuse On methadone Anxiety Depression Herpes simplex Surgical History Surgical History H/O: hysterectomy Hx of tonsillectomy Family History Family History Other No significant family history Social History Social History (Updated 07/13/24 @ 15:06 by Rebeka Armenat PA-C) Social History: Lives alone with 3 cats. Smoking packs per day: 1 Smoking cigarettes per day: 20.0 Years smoked: 20 Smoking pack-years: 20.00 Smoking status: Current every day smoker Tobacco type: cigarettes Second hand tobacco smoke exposure: No Alcohol intake: current Drinks per week: 1 Substance use: former Substance use type: methamphetamine Other substance usage details: denies recreational drug use at this time and is no long on methadone tx Last use: 2022 Do You Feel Safe in your Home?: Yes Lack of Transportation: No Lack of Food: Never True Current Housing: I Have Housing Concerned About Future Housing: No Difficulty Paying Gas/Electric Bills: No Difficulty Paying for Meds: No Currently Unemployed: No Education: Trade/Vocational Certificate Difficulty w/ Childcare or Family Care: No Living arrangements: with family Occupation/Education: occupation Additional occupation/education comments: [employer] Gender identity (if verbalized by the patient): Female Spiritual care concerns: No Same Day Admit/Disch: Med Pre-admit Medications Home Medications ?Medication ?Instructions ?Recorded ?Confirmed ?Type aspirin 81 mg tablet,delayed 81 mg PO DAILY PRN pain 07/12/24 07/12/24 History release (Adult Low Dose Aspirin) [id number]-whwdvyrnjmypm-brrtkkfl 250 1 tablet PO Q6H PRN pain 07/12/24 07/12/24 History mg-250 mg-65 mg tablet (Excedrin Extra Strength) aluminum-mag hydroxide-simethicone 30 ml PO Q6H PRN Indigestion #24 mL 07/13/24 Rx 200 mg-200 mg-20 mg/5 mL oral susp (Mag-Al Plus) celecoxib 200 mg capsule (Celebrex) 200 mg PO BIDWM #20 caps 07/13/24 Rx ondansetron HCl 4 mg tablet 4 mg PO Q6H PRN nausea and 07/13/24 Rx vomiting #12 tabs pantoprazole 40 mg tablet,delayed 40 mg PO Q12HR #60 tabs 07/13/24 Rx release Review of Systems Review of Systems All systems reviewed & are unremarkable except as noted in HPI and below Exam Narrative: AF HR 61 RR 18 SpO2 98 BP 111/76 General: female in no acute respiratory distress who is nontoxic appearing, lying semi recumbent in bed. HEENT: Normocephalic. Atraumatic. Extraocular movement intact. Sclera clear and anicteric. No facial asymmetry. Neck: Neck was supple. No dominant adenopathy, thyromegaly or masses. Chest: Lungs are clear to auscultation bilaterally. No wheezes or crackles. CV: Heart was regular rate and rhythm. S1-S2. No murmurs, gallops, or rubs. Abd: Abdomen was soft. Mild tenderness RUQ without guarding. Nondistended. Positive bowel sounds. Ext: No clubbing, cyanosis, or edema. 2+ DP pulses bilaterally. Neuro: Patient is alert and oriented x4. Speech is clear. Psych: Normal mood and affect. Patient is pleasant and cooperative. Skin: Warm and dry. No rashes noted. DS: Data Data Completed and Pending Completed studies during hospitalization: Abdomen/pelvis CT RUQ US Chest/abdomen/pelvis CTA Labs on day of discharge: Labs from last 24 hours 07/13/24 07/12/24 07/12/24 06:23 20:41 14:13 WBC 9.3 10.2 H RBC 4.22 4.67 Hgb 13.1 14.5 Hct 39.6 43.4 MCV 93.8 92.9 MCH 31.0 31.0 MCHC 33.1 33.4 RDW 12.8 12.8 Plt Count 286 336 MPV 9.9 9.6 Immature Gran % (Auto) 0.4 Neut % (Auto) 40.0 L Lymph % (Auto) 46.9 H [place] % (Auto) 7.9 Eos % (Auto) 4.2 Baso % (Auto) 0.6 Lymph # (Auto) 4.78 H [place] # (Auto) 0.8 H Eos # (Auto) 0.4 H Baso # (Auto) 0.1 Abs Immat Gran (auto) 0.04 H Absolute Neuts (auto) 4.1 Absolute Nucleated RBC 0.000 Nucleated RBC % 0.0 D-Dimer 0.66 H Sodium 138 139 Potassium 3.9 4.2 Chloride 104 104 Carbon Dioxide 26 27 Anion Gap 8 8 BUN 21 H 20 H Creatinine 0.80 0.87 Estim Creat Clear Calc 67 62 Estimated GFR > 60 > 60 Glucose 92 94 Calcium 8.9 10.1 Total Bilirubin 0.7 0.6 AST 23 32 ALT 24 28 Alkaline Phosphatase 88 96 Total Protein 7.0 8.0 Albumin 4.0 4.7 Amylase 97 Lipase 118 432 H DS: Summary Hospital Course Reason for hospitalization: Right upper quadrant abdominal pain Hospital Course: Deirdre Barrios is a 44 year old female with past medical history of opioid abuse (currently sober and off of methadone treatment) who presented to the hospital for right upper quadrant pain. She was recently seen in the ED on 07/11 for similar symptoms of nausea/vomiting and abdominal pain. During that visit labs and imaging were seemingly unremarkable and she was discharged home. Since being discharged she continued to have right upper quadrant pain worsened with meals and position changes. She denied excessive alcohol use but does regularly take ibuprofen. On admission lipase was slightly elevated, given fluids and this resolved. LFTs were WNL. Abdomen/pelvis CT showed no evidence of appendicitis, diverticulitis, or intestinal obstruction. Slightly prominent pancreatic duct and fat infiltration. RUQ US showed slightly prominent pancreatic duct with a normal gallbladder. D dimer slightly elevated. Chest/abdomen/pelvis CTA showed no PE, no cardiopulmonary pathology, no evidence of appendicitis, diverticulitis or intestinal obstruction, and possible gallbladder sludge. Again no sludge noted on US. GI consulted and states that the pain appears musculoskeletal in origin. There is no clinical or laboratory evidence to support an acute catastrophic or visceral process, including pancreatitis, appendicitis, perforation, or cholecystitis. Started on Celebrex at that time. Prior to discharge patient was able to eat a regular diet. She did note slight nausea and abdominal pain. Due to location of pain, excessive NSAID use and the fact that pain is worsened with eating concerned of possible PUD. Discussed with GI Dr. Russell and he states patient can be discharged on PPI, mylanta and zofran with GI follow up for possible endoscopy. Patient states that she wishes to discharge today. She has no complaints of chest pain, shortness of breath, or palpitations. Patient discharged home in a stable condition. She is to follow up with her PCP on Tuesday as scheduled and with GI in the outpatient setting. Status at Discharge Functional status at discharge: independent ambulation Time Spent with Patient Time attestation: Total time spent providing and/or coordinating discharge services: Time spent: Greater than 30 minutes DS: Admitting Diagnosis Discharge Date 07/13/2024 Admitting Diagnosis RUQ abdominal pain DS: Discharge Diagnosis Discharge Diagnosis (1) RUQ abdominal pain: Code(s): R10.11 - Right upper quadrant pain Status: Acute Discharge Plan Discharge Attending physician on discharge: Keely Chapin Discharging Clinician: Rebeka Armenta Anticipated Discharge Date/Time: 07/13/24 14:05 Patient Disposition: Home Activity: as tolerated Diet: as tolerated Discharge Instructions: Discharge disposition: Patient admitted to the hospital for right upper quadrant abdominal pain Imaging unremarkable Evaluated by GI Take medications as prescribed Celebrex twice a day and protonix twice a day Zofran and mylanta as needed Attached is information on these medications Follow up with GI in the outpatient setting for endoscopy to further evaluate pain Take all medications as prescribed even if feeling better Eat well balanced meals and stay hydrated Keep active to remain strong Take caution while standing, rising, or moving Change positions slowly taking a break between each position change If you standing feel dizzy sit back down and take a break Encouraged to continue with yearly vaccinations Return to the emergency department if he developed sudden shortness of breath, chest pain, nausea, vomiting, upset stomach or intractable diarrhea Return to the emergency department if you develop fever greater than 101.5 Follow-up with the primary care physician within 1-2 weeks Thank you for [facility] for your healthcare needs Patient Instructions: Ondansetron (By mouth), Celecoxib (By mouth), Pantoprazole (By mouth), Antacid, Calcium and Magnesium (By mouth) Patient Language: Latvian Stand Alone Forms: General Discharge Information Follow-up/Referrals: Romero Payne MD [Primary Care Provider] - 1 Week Surendar Russell MD [Physician] - Call for Appointment Discharge Medications: New celecoxib [Celebrex] 200 mg Capsule 200 mg PO BIDWM Qty: 20 0RF pantoprazole 40 mg Tablet,Delayed Release (Dr/Ec) 40 mg PO Q12HR Qty: 60 0RF alum-mag hydroxide-simeth [Mag-Al Plus] 200-200-20 mg/5 mL Suspension 30 ml PO Q6H PRN (Reason: Indigestion) Qty: 24 0RF ondansetron HCl 4 mg tablet 4 mg PO Q6H PRN (Reason: nausea and vomiting) Qty: 12 0RF Continued aspirin [Adult Low Dose Aspirin] 81 mg tablet,delayed release (DR/EC) 81 mg PO DAILY PRN (Reason: pain) Excedrin Extra Strength 250-250-65 mg tablet 1 tablet PO Q6H PRN (Reason: pain) Discontinued ibuprofen [Advil] 200 mg tablet 800 mg PO Q6H PRN (Reason: pain) Date of admission: 07/12/24 18:53 Primary Care Provider: Romero Payne Admitting Provider: Keely Chapin Attending physician on admission: Rebeka Armenta Condition: Stable Hospitalist MIPS Advance Care Plan I have confirmed that the patient's Advanced Care Plan is present, code status is documented, or surrogate decision maker is listed in patient medical record.: Yes Medication Reconciliation I have utilized all available resources to obtain, update and review the patients current medications (includes all prescriptions, OTC, herbals, cannabis, and nutritional supplements).: Yes Heart Failure (Exclusion) Patient has history of Heart Transplant or Left Ventricular Assistive Device?: No IF YES, STOP HERE Heart Failure (Qualifier) Patient has current or prior documentation of LVEF less than or equal to 40%, or mod/servere depressed LVSF?: No IF NO, STOP HERE
[2024-07-13] MEDS: NICOTINE (*PBKC) 21 MG PATCH 1 PATCH TRANSDERM (09:24)
[2024-07-13] MEDS: CELECOXIB 200 MG CAPSULE PO (09:25)
[2024-07-13] MEDS: ONDANSETRON INJ 4 MG/2 ML VIAL IV PUSH (09:32)
[2024-07-13] MEDS: ACETAMINOPHEN 325 MG TABLET 650 MG PO (13:45)
[2024-07-13 14:00] VITALS: BP 111/76; PULSE 61; RESP 18; TEMP 36.8; O2SAT 98
--- NOTE | 2024-07-13 14:45 | PC.NURSE ---
On 07/13/24, the BIT SHAVER, Candelaria, provided care and [facility] on this patient. I have reviewed the BIT SHAVER's documentation and agree with the findings.
[2024-07-13] MEDS: PANTOPRAZOLE 40 MG TABLET PO (15:11)
== END 2024-07-13 15:40 | disposition home or self-care (01) ==
LOC: ANHED 19:02 → ANH3MEDSUR 21:00
PROVIDERS: Admitting Provider Internal Medicine; Emergency Provider Emergency Medicine; PCP Emergency Medicine; Visit Provider Student in an Organized Health Care Education/Training Program
DX: R10.11 Right upper quadrant pain (principal); R79.89 Other specified abnormal findings of blood chemistry; Z90.710 Acquired absence of both cervix and uterus; F17.210 Nicotine dependence, cigarettes, uncomplicated; Z79.82 Long term (current) use of aspirin
CPT/HCPCS: 36415; 71275; 74177; 76705; 80053; 82150; 83690; 85025; 85027; 85380; 96361; 96374; 96375; 96376; 99285; A9270; G0378; G0379; J1171; J2405; J7120; Q9967

== ENCOUNTER 2024-09-04 19:26 | Emergency (ER) | payer SELFPAY ==
[2024-09-04 19:32] VITALS: BP 126/76; PULSE 90; RESP 16; TEMP 36.5; O2SAT 99
--- NOTE | 2024-09-04 20:02 | ED.URI ---
HPI - URI/Sore Throat General Chief Complaint: Upper Respiratory Infection Stated Complaint: wheezing/headache/fatigue/cough Time Seen by Provider: 09/04/24 19:35 Source: patient Mode of arrival: ambulatory Limitations: no limitations History of Present Illness HPI Narrative: Deirdre is a 44-year-old female patient presenting to the clinic today with complaints of bilateral ear pain, wheezing, headache, fatigue, cough, and chest congestion times 1 day. Reports she is feeling like she is wheezing and having some slight shortness of breath. She is a smoker. Denies any chest pain. Related Data Home Medications ?Medication ?Instructions ?Recorded ?Confirmed ?Last Taken ?Type aspirin 81 mg tablet,delayed 81 mg PO DAILY PRN pain 07/12/24 07/12/24 07/10/24 History release (Adult Low Dose Aspirin) [id number]-[id number]-[id number] 250 1 tablet PO Q6H PRN pain 07/12/24 07/12/24 07/12/24 History mg-250 mg-65 mg tablet (Excedrin Extra Strength) Allergies Allergy/AdvReac Type Severity Reaction Status Date / Time Sulfa (Sulfonamide Allergy Unknown RASH, Verified 04/15/24 11:54 Antibiotics) VOMITING Review of Systems Review of Systems: Pertinent positives per HPI. Patient denies any fever, chills, rash, visual changes, dizziness, chest pain, palpitations, nausea, vomiting, diarrhea, constipation, abdominal pain, or any urinary issues. PMFSH Past Medical History Medical History Methadone dependence Opioid use Vicodin Frequent UTI Methadone dependence Opioid use Vicodin Methadone dependence Opioid use Vicodin Toenail fungus Neuropathy Substance abuse On methadone Anxiety Depression Herpes simplex Surgical History Surgical History H/O: hysterectomy Hx of tonsillectomy Family History Family History Other No significant family history Social History Social History Social History: Lives alone with 3 cats. Smoking packs per day: 1 Smoking cigarettes per day: 20.0 Years smoked: 20 Smoking pack-years: 20.00 Smoking status: Current every day smoker Tobacco type: cigarettes Second hand tobacco smoke exposure: No Alcohol intake: current Drinks per week: 1 Substance use: former Substance use type: methamphetamine Other substance usage details: denies recreational drug use at this time and is no long on methadone tx Last use: 2022 Do You Feel Safe in your Home?: Yes Lack of Transportation: No Lack of Food: Never True Current Housing: I Have Housing Concerned About Future Housing: No Difficulty Paying Gas/Electric Bills: No Difficulty Paying for Meds: No Currently Unemployed: No Education: Trade/Vocational Certificate Difficulty w/ Childcare or Family Care: No Living arrangements: with family Occupation/Education: occupation 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 There is no relevant family history pertinent to the patient complaint. Exam Narrative: General: Well-developed, well nourished, in no apparent distress Head: Normocephalic, atraumatic Eyes: Pupils equally round and reactive to light bilaterally, EOM intact, sclera and conjunctive clear, no discharge, lids normal Ears: Right TMs intact and congested, left TM intact, bulging, red, ear canals clear, no drainage, grossly hearing normal. Nose: Nares patent, clear nasal discharge, moderate inflammation, no sinus tenderness. Mouth: Oral pharynx red without lesions or masses, good dentition, MMM. Postnasal drip Neck: Supple, trachea midline, no enlargement of anterior or posterior cervical nodes, no thyroid masses or goiter palpable. Cardio: Regular rate and rhythm, s1 and s2 normal, no murmur appreciated. Resp: Wheezing in the left lower lobe, no rhonchi, rales, or rubs Course Course Emergency Course: Portions of this record may have been created with voice recognition software. Level of Care: Express Care Visit Vital Signs Vital signs: Vital Signs Temperature 36.5 C 09/04/24 19:32 Pulse Rate 90 09/04/24 19:32 Respiratory Rate 16 09/04/24 19:32 Blood Pressure 126/76 09/04/24 19:32 Pulse Oximetry 99 09/04/24 19:32 Oxygen Delivery Room Air 09/04/24 19:32 Temperature 36.5 C 09/04/24 19:32 Pulse Rate 90 09/04/24 19:32 Respiratory Rate 16 09/04/24 19:32 Blood Pressure 126/76 09/04/24 19:32 Pulse Oximetry 99 09/04/24 19:32 Oxygen Delivery Room Air 09/04/24 19:32 Vital signs reviewed MDM - URI/Sore Throat MDM Narrative Medical decision making narrative: At the time of visit patient is resting comfortably on the exam table. Patient appears to be nontoxic. Plan: I suspect patient has left otitis media/bronchitis/pharyngitis. Prescription for Augmentin, prednisone, Diflucan, and albuterol inhaler was sent to the pharmacy. Patient requested Diflucan with antibiotic. Supportive measures were discussed with the patient and they voiced understanding discharge instructions and agrees to treatment plan. Return precautions reviewed Differential Diagnosis Differential diagnosis: Likely upper respiratory infection, otitis media, sinusitis, viral infection, bronchitis, influenza, pharyngitis and other (COVID) Discharge Plan Discharge Clinical Impression: Bronchitis Pharyngitis Qualifiers: Pharyngitis/tonsillitis etiology: unspecified etiology Qualified Code(s): J02.9 - Acute pharyngitis, unspecified Otitis media Qualifiers: Otitis media type: suppurative Chronicity: acute Laterality: left Recurrence: non-recurrent Spontaneous tympanic membrane rupture: without spontaneous rupture Qualified Code(s): H66.002 - Acute suppurative otitis media without spontaneous rupture of ear drum, left ear Patient Disposition: Home Condition: Stable Instructions: Antibiotic Form, Pharyngitis (ED), Ear Infection (ED), Acute Bronchitis (ED) Additional Instructions: Take prescription medications only as prescribed-albuterol inhaler, Augmentin, fluconazole, and prednisone Increase fluids and stay well hydrated Tylenol/motrin for pain/fever Flonase and OTC antihistamines as directed Vicks vapor rub to open sinuses Sinus rinses for congestion Cepacol spray, cough drops, throat lozenges, warm tea with honey/lemon, gargle salt water to soothe throat BRAT diet for diarrhea Clear liquids x 24 hours then advance as tolerated for nausea/vomiting Go to the ED if you develop a worsening in your condition- high fever not controlled by Tylenol or Motrin, dehydration, weakness, lethargy, shortness of breath, or chest pain. Follow up with your PCP in 3-5 days if symptoms persist. Patient Language: Uzbek Prescriptions: New prednisone 20 mg tablet 40 mg PO DAILY 5 Days Qty: 10 0RF albuterol sulfate 90 mcg/actuation HFA aerosol inhaler 2 puff inhalation Q4-6H PRN (Reason: shortness of breath or wheezing) 30 Days Qty: 8.5 0RF fluconazole 150 mg tablet 150 mg PO ONCE Qty: 2 0RF Rx Instructions: as a single dose. May repeat in 72 hours if needed. amoxicillin-pot clavulanate 875-125 mg tablet 1 tablet PO Q12H 10 Days Qty: 20 0RF No Action aspirin [Adult Low Dose Aspirin] 81 mg tablet,delayed release (DR/EC) 81 mg PO DAILY PRN (Reason: pain) Excedrin Extra Strength 250-250-65 mg tablet 1 tablet PO Q6H PRN (Reason: pain) celecoxib [Celebrex] 200 mg Capsule 200 mg PO BIDWM Qty: 20 0RF pantoprazole 40 mg Tablet,Delayed Release (Dr/Ec) 40 mg PO Q12HR Qty: 60 0RF alum-mag hydroxide-simeth [Mag-Al Plus] 200-200-20 mg/5 mL Suspension 30 ml PO Q6H PRN (Reason: Indigestion) Qty: 24 0RF ondansetron HCl 4 mg tablet 4 mg PO Q6H PRN (Reason: nausea and vomiting) Qty: 12 0RF Follow-up/Referrals: Romero Payne MD [Primary Care Provider] - Stand Alone Forms: Work/School Release IP Time of Disposition: 19:45 Quality NIHSS Nursing Documentation ED NIHSS nursing documentation: reviewed/agree
== END 2024-09-04 19:55 | disposition home or self-care (01) ==
PROVIDERS: Emergency Provider Nurse Practitioner Family; PCP Emergency Medicine
DX: J40 Bronchitis, not specified as acute or chronic (principal); J02.9 Acute pharyngitis, unspecified; H66.002 Acute suppurative otitis media without spontaneous rupture of ear drum, left ear; F17.210 Nicotine dependence, cigarettes, uncomplicated; Z79.82 Long term (current) use of aspirin
CPT/HCPCS: 99213; G0463

== ENCOUNTER 2025-03-07 10:56 | Emergency (ER) | payer SELFPAY ==
--- NOTE | 2025-03-07 11:01 | ED.FEMALEGU ---
HPI - Female Genitourinary General Chief complaint: Urogenital-Female Stated complaint: UTI Time Seen by Provider: 03/07/25 11:00 Source: patient Mode of arrival: ambulatory Limitations: no limitations History of Present Illness HPI Narrative: Patient is a 44-year-old female who presents with 2 days of urinary burning, urgency, frequency, right-sided low back pain, nausea, bladder spasms. Denies any fever, chills, vomiting, diarrhea. Has increased water but has not taken anything for symptoms. Does have history of UTI. MD elicited complaint: dysuria Related Data Home Medications ?Medication ?Instructions ?Recorded ?Confirmed ?Last Taken ?Type aspirin 81 mg tablet,delayed 81 mg PO DAILY PRN pain 07/12/24 07/12/24 07/10/24 History release (Adult Low Dose Aspirin) [id number]-xypbfzjwhcgpr-[id number] 250 1 tablet PO Q6H PRN pain 07/12/24 07/12/24 07/12/24 History mg-250 mg-65 mg tablet (Excedrin Extra Strength) Allergies Allergy/AdvReac Type Severity Reaction Status Date / Time Sulfa (Sulfonamide Allergy Unknown RASH, Verified 03/07/25 10:58 Antibiotics) VOMITING Review of Systems Review of Systems: All systems reviewed & are unremarkable except as noted in HPI and below Constitutional: Constitutional: Denies chills, Denies fever(s), Denies headache(s), Denies malaise and Denies weakness Eyes: Eyes: Denies change in vision, Denies eye discharge and Denies irritation ENT: Denies otalgia, Denies headache(s), Denies nasal congestion, Denies nasal discharge, Denies sinus pain and Denies sore throat Cardiovascular: Cardiovascular: Denies chest pain, Denies edema, Denies palpitations and Denies dyspnea Respiratory: Respiratory: Denies cough and Denies dyspnea Gastrointestinal: Gastrointestinal: Denies abdominal pain, Denies diarrhea, Denies nausea and Denies vomiting Genitourinary: Genitourinary: Denies hematuria, Reports nocturia, Reports dysuria, Reports pelvic pain, Reports flank pain and Reports urinary urgency Musculoskeletal: Musculoskeletal: Denies back pain and Denies numbness Integumentary/Breasts: Skin/Breast: Denies pruritus and Denies rash Neurologic: Denies headache(s), Denies numbness and Denies weakness Psychiatric: Psychiatric: Reports no additional psychiatric complaints Endocrine: Endocrine: Denies palpitations PMFSH Past Medical History Medical History Methadone dependence Opioid use Vicodin Frequent UTI Methadone dependence Opioid use Vicodin Methadone dependence Opioid use Vicodin Toenail fungus Neuropathy Substance abuse On methadone Anxiety Depression Herpes simplex Surgical History Surgical History H/O: hysterectomy Hx of tonsillectomy Family History Family History Other No significant family history Social History Social History (Reviewed 03/07/25 @ 11: by Mercedez Copeland APRN) Social History: Lives alone with 3 cats. Smoking packs per day: 1 Smoking cigarettes per day: 20.0 Years smoked: 20 Smoking pack-years: 20.00 Smoking status: Current every day smoker Tobacco type: cigarettes Second hand tobacco smoke exposure: No Alcohol intake: current Drinks per week: 1 Substance use: former Substance use type: methamphetamine Other substance usage details: denies recreational drug use at this time and is no long on methadone tx Last use: 2022 Lack of Transportation: No Lack of Food: Never True Current Housing: I Have Housing Concerned About Future Housing: No Difficulty Paying Gas/Electric Bills: No Difficulty Paying for Meds: No Currently Unemployed: No Education: Trade/Vocational Certificate Difficulty w/ Childcare or Family Care: No Living arrangements: with family Occupation/Education: occupation Additional occupation/education comments: [employer] Gender identity (if verbalized by the patient): Female Spiritual care concerns: No Comments At time of signature, agree with nursing past medical, surgical, social and family history. There is no relevant family history pertinent to the presenting complaint. Exam Const: General: cooperative, healthy appearing, comfortable, no acute distress and well nourished Nutritional Appearance: well nourished Orientation/consciousness: patient oriented x3 HENMT: Head: normocephalic and atraumatic Ears: external ears normal Face/Nose/Sinus: Normal external nose present, Normal nares present and normal facial exam Face and sinus: normal facial exam Eyes: General: appearance normal, both eyes and all related structures Pupils: Equal, round and reactive pupils present EOM: EOMs intact bilaterally Neck: Neck: normal visual inspection, full ROM and supple Chest: Chest palpation & inspection: normal inspection of the chest Resp: Effort & Inspection: normal respiratory effort and able to speak in complete sentences Cardio: Rate: regular rate Rhythm: regular rhythm GI: Inspection: normal to inspection GI Palp: No abdominal tenderness and Yes Soft to palpation : General: Yes no CVA tenderness Back/Spine/Pelvis: Back: no CVA tenderness Skin: General skin exam: normal color and no rashes or lesions noted Neuro: General: patient oriented x3 and moves all extremities Cranial nerves: Yes Equal, round and reactive pupils present Extrem: General: normal to inspection and full ROM Psych: Appearance: grossly normal and well kempt Course Course Emergency Course: Patient is aware of diagnosis, understands and agrees to treatment plan. Anticipatory guidance given. Patient agrees to follow-up as directed and is aware of reasons to seek care at the emergency department. Portions of this record may have been created with voice recognition software Level of Care: Express Care Visit Vital Signs Vital signs: Vital Signs Temperature 37.3 C 03/07/25 11:09 Pulse Rate 101 H 03/07/25 11:09 Respiratory Rate 18 03/07/25 11:09 Blood Pressure 118/65 03/07/25 11:09 Pulse Oximetry 99 03/07/25 11:09 Oxygen Delivery Room Air 03/07/25 11:09 Temperature 37.3 C 03/07/25 11:09 Pulse Rate 101 H 03/07/25 11:09 Respiratory Rate 18 03/07/25 11:09 Blood Pressure 118/65 03/07/25 11:09 Pulse Oximetry 99 03/07/25 11:09 Oxygen Delivery Room Air 03/07/25 11:09 [facility] MDM Narrative Medical decision making narrative: Based on symptoms and positive point of care UA, patient will be treated with antibiotics. Pt well hydrated appearing, in no respiratory distress, hemodynamically stable. Recommend supportive care. The patient is stable at time of discharge the clinical impression was discussed and the patient was given the opportunity to ask questions, which were addressed as completely as possible given the information available at present. Anticipatory guidance and return to care precautions were discussed and the importance of primary care follow-up was stressed and encouraged. The patient voiced understanding of the plan, indications to return, and the need for follow-up. Exam findings show no acute concerns or changes Patient is appropriate for outpatient treatment and follow-up. Differential Diagnosis Differential Diagnosis: Differential diagnostic considerations for female urogenital? issues include urinary tract infection, bacterial vaginosis, cervicitis, ovarian cyst, vaginitis, STI exposure, ovarian torsion, ectopic , cyst of Bartholin?s gland, cystitis, dysmenorrhea.?? Medical Records I have reviewed the following patient records and this information was taken into consideration when formulating the assessment and plan.: previous clinic visits Lab Data MDM Lab Attestation statement: I personally reviewed the patient's lab results. Labs: Lab Results 03/07/25 Range/Units 11:05 POC Urine Color Yellow POC Urine Clarity Cloudy POC Urine pH 6.0 POC Ur Specif [place] 1.020 POC Urine Protein 2+ (Negative) POC Ur Glucose (UA) Negative (Negative) POC Urine Ketones Negative (Negative) POC Urine Blood 3+ (Negative) POC Urine Nitrite Negative (Negative) POC Urine Bilirubin Negative (Negative) POC Urine Urobilinogen 0.2 POC U Leukocyte Esteras 2+ (Negative) Discharge Plan Discharge Clinical Impression: Urinary tract infection Qualifiers: Urinary tract infection type: acute cystitis Hematuria presence: with hematuria Qualified Code(s): N30.01 - Acute cystitis with hematuria Patient Disposition: Home Condition: Stable Instructions: Urinary Tract Infection in Women (ED) Additional Instructions: We will send a urine culture to the lab, based on your symptoms and urine dip we will start treatment today. If culture comes back and bacteria is not susceptible to antibiotic, your prescription may change. Your symptoms should improve within a day of starting antibiotics, but you should finish all the antibiotic pills you get. Otherwise your infection might come back Continue with increased water intake. Take Tylenol or ibuprofen as needed for pain or fever. Follow-up with primary care provider for urine recheck or see ER visit if condition worsens with high fever, nausea, vomiting, severe back pain Patient Language: Argentine Prescriptions: New fluconazole 150 mg tablet 150 mg PO ONCE Qty: 2 0RF Rx Instructions: as a single dose after antibiotics are complete. If symptoms persist, take second dose 3 days later. phenazopyridine [Pyridium] 200 mg tablet 200 mg PO TID 3 Days Qty: 9 0RF ondansetron 4 mg tablet,disintegrating 4 mg PO Q6-8H PRN (Reason: nausea and vomiting) Qty: 7 0RF nitrofurantoin monohyd/m-cryst 100 mg capsule 100 mg PO Q12H 5 Days Qty: 10 0RF Rx Instructions: must administer with a meal/food No Action albuterol sulfate 90 mcg/actuation HFA aerosol inhaler 2 puff inhalation Q4-6H PRN (Reason: shortness of breath or wheezing) 30 Days Qty: 8.5 0RF aspirin [Adult Low Dose Aspirin] 81 mg tablet,delayed release (DR/EC) 81 mg PO DAILY PRN (Reason: pain) Excedrin Extra Strength 250-250-65 mg tablet 1 tablet PO Q6H PRN (Reason: pain) pantoprazole 40 mg Tablet,Delayed Release (Dr/Ec) 40 mg PO Q12HR Qty: 60 0RF Follow-up/Referrals: Romero Payne MD [Primary Care Provider, Family Practice] - 3 Days Stand Alone Forms: Work/School Release IP Time of Disposition: 11:36
[2025-03-07 11:09] VITALS: BP 118/65; PULSE 101; RESP 18; TEMP 37.3; O2SAT 99
[2025-03-07 11:16] LABS: EDUAAPPEAR Cloudy; EDUABILI Negative (Negative); EDUABLOOD 3+ (Negative); EDUACOLOR1 Yellow; EDUAGLUCOSE Negative (Negative); EDUAKETONE Negative (Negative); EDUALEUKO 2+ (Negative); EDUANITRATE Negative (Negative); EDUAPH 6.0; EDUAPROTEIN 2+ (Negative); EDUASPGRAVITY 1.020; EDUAUROBILI 0.2
== END 2025-03-07 11:40 | disposition home or self-care (01) ==
PROVIDERS: Emergency Provider Nurse Practitioner Family; PCP Emergency Medicine
DX: N30.01 Acute cystitis with hematuria (principal); F17.210 Nicotine dependence, cigarettes, uncomplicated; Z79.82 Long term (current) use of aspirin
CPT/HCPCS: 81003; 87086; 99213; G0463